=== PATIENT | female | born 1940 | race Caucasian/White ===

== ENCOUNTER 2017-10-15 10:52 | Inpatient (IN) ==
--- NOTE | 2017-10-15 11:29 | Emergency Department Note ---
General Adult HPI - General Chief complaint: Cold/Flu Symptoms Stated complaint: Pneumonia Time Seen by Provider: 10/15/17 10:54 Mode of arrival: ambulatory - History of Present Illness HPI Narrative: 76-year-old female who was seen [address] [facility] and treated with pneumonia with a IM Rocephin shot. She had gotten worse and was seen on Thursday 5 days ago at [facility] ED and right pneumonia was seen and was treated outpatient with Levaquin 750 mg daily. sHe was seen again today at [facility], today and a repeat x-ray showed increasing pneumonia. Patient states she continues having increased cough and feeling weak. She does have a history of asthma they had given her a DuoNeb at [facility]. She was referred over to the ED for possible admission. Ray reviewed by Dr. Patel radiologist was today's infiltrate to be increased from previous x-ray the right lower lobe. - Related Data Home Medications Medication Instructions Recorded Confirmed Aspirin [Adult Low Dose Aspirin EC] 81 mg PO DAILY 05/28/15 10/15/17 Beclomethasone Dipropionate [Qvar 2 inh INH BID 05/28/15 10/15/17 40] Metoprolol Tartrate [Lopressor] 25 mg PO DAILY 05/28/15 10/15/17 L.acidophilus-Bif. animalis 1 tab PO QDAY 06/11/15 10/15/17 albuterol sulfate HFA 90 INHALATION 17 Days 06/11/15 09/23/17 mcg/actuation aerosol inhaler calcium carbonate 600 mg (1,500 1 tab PO QDAY 06/11/15 10/15/17 mg)-vitamin D3 200 unit tablet fluticasone 200 mcg-vilanterol 25 1 each INHALATION QDAY each 06/11/15 10/15/17 mcg/dose powder for inhalation glucosamine 750 [id number] 2 tab PO QDAY tab 06/11/15 10/15/17 no1 644 mg-C 30 mg-anne 1 mg tablet montelukast 10 mg tablet 10 mg PO QPM 06/11/15 10/15/17 multivitamin with minerals tablet 1 tab-cap PO QDAY tab 06/11/15 10/15/17 olopatadine 0.1 % eye drops 2 drp OPHTHALMIC ONCE PRN ml 06/11/15 10/15/17 ezetimibe 10 mg tablet 10 mg PO QDAY 05/20/17 10/15/17 tramadol PO 07/22/17 09/23/17 hydrOXYzine [Atarax] 25 mg PO TIDP PRN 09/20/17 10/15/17 Ondansetron HCl [Zofran ODT] 4 mg SL Q4-6HP PRN 10/15/17 10/15/17 Previous Rx's Medication Instructions Recorded acyclovir 400 mg tablet 400 mg PO QDAY 90 Days #90 tab 03/06/15 mirtazapine 15 mg tablet 15 mg PO QHS #30 tab 03/29/15 loratadine 5 mg disintegrating 5 mg PO Q12H #60 tab 11/06/15 tablet Levofloxacin [Levaquin] 750 mg PO DAILY #6 tab 10/12/17 Allergies Allergy/AdvReac Type Severity Reaction Status Date / Time atorvastatin [From Lipitor] Allergy Other Verified 10/12/17 01:01 Penicillins Allergy Rash Verified 10/12/17 01:01 pravastatin Allergy Diarrhea Verified 10/12/17 01:01 rosuvastatin [From Crestor] Allergy Other Verified 10/12/17 01:01 Review of Systems All systems ED: reviewed and negative except as stated. Constitutional: Reports: fever, chills Eyes: Denies: eye pain ENT ED: Denies: ear pain Cardiovascular: Denies: chest pain, palpitations, dyspnea on exertion, orthopnea Respiratory: Reports: as per HPI, shortness of breath, cough Gastrointestinal: Denies: abdominal pain, nausea, vomiting Genitourinary: Denies: dysuria, urgency, frequency Musculoskeletal: Denies: back pain, joint swelling Integumentary: Denies: rash, lesions Neurological: Denies: headache, weakness Psychiatric: Denies: anxiety, depression Endocrine: Denies: fatigue Hematological/Lymphatic: Denies: easy bleeding Allergic/Immunologic: Denies: facial swelling Past Medical History - Past Medical History Medical history: Reports: other (Cervical cancer, carpal tunnel, mitral valve prolapse, herpes zoster,) Surgical history ED: Reports: other (Bladder suspension, colonoscopy, tubal ligation, appendectomy, cataract, foot surgery, hysterectomy, tonsillectomy,) - Social History smoking status: Former smoker Alcohol use: Reports: None Drug use: Reports: none Physical Exam Limitations: no limitations General appearance: alert Head: atraumatic Eye: Present: normal appearance, PERRL ENT: normal exam, normal oropharynx Neck: Present: normal inspection, full ROM Chest: Present: normal inspection, symmetric chest wall rise. Absent: tenderness Respiratory: Present: normal lung sounds bilaterally, wheezes. Absent: respiratory distress, stridor, accessory muscle use, prolonged expiratory phase Cardiovascular: Present: regular rate, normal rhythm. Absent: bradycardia, tachycardia Abdominal: Present: soft. Absent: distention, tenderness, guarding, rebound, rigidity Course Vital Signs Temperature 98.1 F 10/15/17 10:53 Respiratory Rate 16 10/15/17 10:53 Blood Pressure 148/78 10/15/17 10:53 Pulse Oximetry (%) 93 10/15/17 10:53 Temperature 98.1 F 10/15/17 10:53 Respiratory Rate 16 10/15/17 10:53 Blood Pressure 148/78 10/15/17 10:53 Pulse Oximetry (%) 93 10/15/17 10:53 Medical Decision Making - [facility] Narrative Medical decision making narrative: She had a Rocephin shot on Thursday 1 week ago. Treated outpatient with Levaquin and x-rays today at [facility] reveal increased lower lobe pneumonia as read by radiologist.. Lactic acid is 1.8 blood cultures have been drawn white counts 9161 segs and no bands UA does show 6 WBCs and culture is pending. Patient given IV fluids vital signs are stable noted on IV Rocephin and IV Zithromax - Lab Data Result diagrams: 10/15/17 11:31 10/15/17 11:31 Lab Results 10/15/17 10/15/17 10/15/17 Range/Units 11:31 11:31 11:31 WBC 9.1 (4.5-11.0) K/mcL RBC 4.79 (4.00-5.20) M/mcL Hgb 13.6 (12.0-15.0) g/dL Hct 40.0 (36.0-48.0) % MCV 83.6 (80.0-100.0) fL MCH 28.3 (26.0-34.0) pg MCHC 33.9 (31.0-36.0) g/dL RDW 13.6 (11.5-14.5) % Plt Count 284 (140-440) K/mcL MPV 7.5 (7.4-10.4) fL Total Counted 100 Seg Neutrophils % 61 (38-78) % Band Neutrophils % Not Reportable Lymphocytes % 22 (15-49) % Monocytes % (Manual) 11 (1-12) % Eosinophils % (Manual) 5 (0-7) % Myelocytes % 1 H (0-0) % Platelet Estimate Normal (NORMAL) RBC Morphology Normal (NORMAL) VBG Lactic Acid 1.8 (0.5-2.2) mmol/L Sodium 138 (133-145) mmol/L Potassium 3.9 (3.3-5.1) mmol/L Chloride 98 (96-108) mmol/L Carbon Dioxide 25 (22-30) mmol/L Anion Gap 15.0 (8-16) BUN 17 (8-23) mg/dl Creatinine 1.1 (0.6-1.1) mg/dl GFR Calculation 48 Glucose 98 (70-105) mg/dL Calcium 9.5 (8.6-10.4) mg/dl Total Bilirubin 0.4 (0.0-1.0) mg/dL AST 24 (0-37) U/l ALT 23 (0-40) U/l Alkaline Phosphatase 80 (39-117) U/L Total Protein 7.6 (5.9-8.4) gm/dL Albumin 4.3 (3.2-5.2) gm/dL Globulin 3.3 (2.2-3.7) gm/dL Albumin/Globulin Ratio 1.3 (1.0-2.3) Urine Color Urine Appearance Urine pH (5.0-9.0) Ur Specific [place] (1.000-1.035) Urine Protein (NEG) mg/dL Urine Glucose (UA) (NEG) mg/dL Urine Ketones (NEG) mg/dL Urine Occult Blood (<0.03) mg/dL Urine Nitrate (NEG) Urine Bilirubin (NEG) mg/dL Urine Urobilinogen (NEG) mg/dL Ur Leukocyte Esterase (NEG) /uL Urine RBC (0-1) /hpf Urine WBC (0-4) /hpf Ur Squamous Epith Cells (0-4) /hpf Calcium Oxalate Crystal (0) /hpf Urine Bacteria (0) /hpf Urine Mucus (0) /hpf Ur Culture Indicated? 03/15/18 Range/Units 11:46 WBC (4.5-11.0) K/mcL RBC (4.00-5.20) M/mcL Hgb (12.0-15.0) g/dL Hct (36.0-48.0) % MCV (80.0-100.0) fL MCH (26.0-34.0) pg MCHC (31.0-36.0) g/dL RDW (11.5-14.5) % Plt Count (140-440) K/mcL MPV (7.4-10.4) fL Total Counted Seg Neutrophils % (38-78) % Band Neutrophils % Lymphocytes % (15-49) % Monocytes % (Manual) (1-12) % Eosinophils % (Manual) (0-7) % Myelocytes % (0-0) % Platelet Estimate (NORMAL) RBC Morphology (NORMAL) VBG Lactic Acid (0.5-2.2) mmol/L Sodium (133-145) mmol/L Potassium (3.3-5.1) mmol/L Chloride (96-108) mmol/L Carbon Dioxide (22-30) mmol/L Anion Gap (8-16) BUN (8-23) mg/dl Creatinine (0.6-1.1) mg/dl GFR Calculation Glucose (70-105) mg/dL Calcium (8.6-10.4) mg/dl Total Bilirubin (0.0-1.0) mg/dL AST (0-37) U/l ALT (0-40) U/l Alkaline Phosphatase (39-117) U/L Total Protein (5.9-8.4) gm/dL Albumin (3.2-5.2) gm/dL Globulin (2.2-3.7) gm/dL Albumin/Globulin Ratio (1.0-2.3) Urine Color Yellow Urine Appearance Hazy Urine pH 5.0 (5.0-9.0) Ur Specific [place] 1.019 (1.000-1.035) Urine Protein Neg (NEG) mg/dL Urine Glucose (UA) Negative (NEG) mg/dL Urine Ketones Neg (NEG) mg/dL Urine Occult Blood Neg (<0.03) mg/dL Urine Nitrate Neg (NEG) Urine Bilirubin Neg (NEG) mg/dL Urine Urobilinogen Neg (NEG) mg/dL Ur Leukocyte Esterase Neg (NEG) /uL Urine RBC 1 (0-1) /hpf Urine WBC 6 H (0-4) /hpf Ur Squamous Epith Cells < 1 (0-4) /hpf Calcium Oxalate Crystal Few A (0) /hpf Urine Bacteria 0 (0) /hpf Urine Mucus Many A (0) /hpf Ur Culture Indicated? Yes Disposition Pt seen by [employer]/PA only: No Clinical Impression: Right lower lobe pneumonia Qualifiers: Pneumonia type: due to unspecified organism Qualified Code(s): J18.1 - Lobar pneumonia, unspecified organism Disposition: Xfer As Inpt ([facility]) Condition: Fair Referrals: Aditi Atwood ARNP [Primary Care Provider] -
[2017-10-15] MEDS ORDERED: cefTRIAXone 1 GM VIAL IV ONE (12:02)
[2017-10-15] MEDS ORDERED: AZITHROMYCIN 500 MG in DEXTROSE 5% IN WATER 250 ML IV ONE (12:02)
[2017-10-15 12:20] LABS: Mean Cell Volume 83.6 fL (80.0-100.0); Mean Corpuscular HGB Conc 33.9 g/dL (31.0-36.0); Mean Corpuscular Hemoglobin 28.3 pg (26.0-34.0); Platelet Count 284 K/mcL (140-440); RBC 4.79 M/mcL (4.00-5.20); Red Cell Distribution Width 13.6 % (11.5-14.5)
[2017-10-15 12:21] LABS: Appearance,Urine HAZY; Bacteria,Urine 0 /hpf (0); Bilirubin,Urine NEG (NEG); Calcium Oxalate Crystals,Urine FEW /hpf (0); Color,Urine YELLOW; Glucose,Urine (UA) NEGATIVE (NEG); Leukocyte Esterase,Urine NEG /uL (NEG); Mucus,Urine MANY /hpf (0); Protein,Urine NEG (NEG); Specific Gravity,Urine 1.019 (1.000-1.035); Urine Blood NEG mg/dL (<0.03); Urine RBC 1 /hpf (0-1); Urine Squamous Epithelial Cell < 1 /hpf (0-4); Urine WBC 6 /hpf (0-4); Urobilinogen,Urine NEG (NEG)
[2017-10-15 12:38] LABS: ALT/SGPT 23 U/l (0-40); Albumin 4.3 gm/dL (3.2-5.2); Albumin/Globulin Ratio 1.3 (1.0-2.3); Alkaline Phosphatase 80 U/L (39-117); Blood Urea Nitrogen 17 mg/dl (8-23)
[2017-10-15 12:42] LABS: Eosinophils % (Manual) 5 % (0-7); Lymphocytes % 22 % (15-49); Monocytes % (Manual) 11 % (1-12); Myelocytes % 1 % (0-0); Platelet Estimate NORMAL (NORMAL); RBC Morphology NORMAL (NORMAL); Segmented Neutrophils % 61 % (38-78)
--- NOTE | 2017-10-15 14:33 | XRay Report ---
INDICATION: Pneumonia TECHNIQUE: PA and lateral upright chest x-ray COMPARISON: Chest x-rays dated 10/15/2017, 10/12/2017, 10/09/2017 FINDINGS:Right basilar infiltrate. This appears to involve both the right middle lobe and right lower lobe on lateral view. Infiltrate is mild but is slightly worse than on 10/12/2017. Appearance is consistent with pneumonia. Left lung remains negative. Heart size and vascularity are normal. IMPRESSION: 1. Right basilar infiltrates consistent with pneumonia 2. Slight interval worsening since 10/12/2017 Interpreted and Authenticated by: Zeke Patel 10/15/17
[2017-10-15] MEDS ORDERED: methylPREDNISolone SOD SUCC 125 MG/2 ML VIAL IV SCH (15:15)
[2017-10-15] MEDS ORDERED: ONDANSETRON 4 MG/2 ML VIAL IV PRN (17:20)
[2017-10-15] MEDS ORDERED: ACETAMINOPHEN 325 MG TABLET PO PRN (17:20)
[2017-10-15] MEDS ORDERED: HYDROmorphone 2 MG/ML VIAL IV PRN (17:20)
[2017-10-15] MEDS ORDERED: NALOXONE HCL 0.4 MG/ML VIAL IV PRN (17:20)
[2017-10-15] MEDS ORDERED: 0.9 % SODIUM CHLORIDE 1,000 ML IV SCH (17:20)
[2017-10-15] MEDS: methylPREDNISolone SOD SUCC 125 MG/2 ML VIAL IV SCH (17:32)
--- NOTE | 2017-10-15 18:02 | Internal Med History&Physical ---
Medical - H&P: HPI Patient information: Note initiated : 10/15/17 at 5:59 pm Service Date, if different from initiated Date: [] Patient: Cornelia Shi a 76 y/o F admitted on 10/15/17 for Pneumonia. Chief Complaint: [] History of present illness: Ms. Shi is a 76 year old Female with h/o asthma who presents to the emergency today with complains of cough and shortness of breath that has been going on for the last 1 week. According to the patient she has been not feeling well having a head cold and sinus drainage for nearly a week. She was seen by her primary care doctor on Thursday. The doctor prescribed some medications I will be she was not able to take them as she would vomit as soon as she took it. She was seen in the emergency room on Thursday, the patient was prescribed levofloxacin at that point in time. The patient was not able to tolerate levofloxacin also. She saw her primary care later and he prescribed some Zofran for her. The patient was then able to take some medications. The patient's condition did not improve and she again saw her PCP today. In the PCPs office to get a chest x-ray which revealed worsening pneumonia on the right side patient was therefore sent to the emergency room for admission as she had failed outpatient treatment. The patient's cough is associated with whitish greenish sputum. There is no hemoptysis, shortness of breath is worse with exertion. She has a sinus headache, no changes in vision she admits to having some difficulty in swallowing or throat irritation. She has some chest pain with coughing. Shortness of breath and cough. Nausea and vomiting no blood in the vomitus. No abdominal pain no constipation no diarrhea no melena. No urinary symptoms. No joint pain no skin rashes, she has no suicidal ideations. In the emergency room patient is afebrile, vital signs are stable, she was saturating more than 90% on 2 L of oxygen. She was able to speak full sentences. Blood work reviewed she does not have leukocytosis, her chemistry panel was normal. X-ray chest shows worsening pneumonia on the right side right middle lobe and right basilar lobe. She also had bilateral expiratory wheezing on exam. She is therefore being admitted to the hospital for further management All systems: reviewed and no additional remarkable complaints except as stated Medical - H&P: PM Medical history: Medical History (Last Reviewed 05/20/17 @ 13:08 by Bonny Huddleston CMA) Paresthesia of right arm (Chronic) H/O bladder problems (Chronic) History of kidney problems (Chronic) Dizziness (Chronic) Chronic diarrhea (Chronic) Cervical cancer (Chronic) Carpal tunnel syndrome of right wrist (Chronic) Cardiac valve prolapse (Chronic) Joint pain (Chronic) Back pain (Chronic) Arthritis (Chronic) Hymenoptera reaction (Chronic) Perennial allergic rhinitis (Chronic) Seasonal allergic rhinitis (Chronic) Urinary tract infection (Chronic) Osteoarthrosis (Chronic) Mitral valve disorder (Chronic) Herpes zoster (Chronic) Diarrhea (Chronic) Asthma (Chronic) Surgical history: Past Surgical History (Last Reviewed 05/20/17 @ 13:08 by Bonny Huddleston CMA) H/O tubal ligation (Chronic) History of tonsillectomy (Chronic) Pneumothorax (Chronic) History of hysterectomy (Chronic) S/P foot surgery, right (Chronic) S/P foot surgery, left (Chronic) H/O colonoscopy (Chronic 08/11/13) H/O bladder repair surgery (Chronic) History of appendectomy (Chronic) History of foot surgery (Chronic) History of cataract surgery (Acute) Pertinent family history: Family History (Last Reviewed 05/20/17 @ 13:08 by Bonny Huddleston CMA) Mother Asthma Sister Diabetes mellitus Osteoarthritis Father Malignant neoplasm Medical - H&P: Meds Home Medications Medication Instructions Recorded Confirmed Type acyclovir 400 mg tablet 400 mg PO QDAY 90 Days #90 tab 03/06/15 10/15/17 Rx mirtazapine 15 mg tablet 15 mg PO QHS #30 tab 03/29/15 10/15/17 Rx Aspirin [Adult Low Dose Aspirin EC] 81 mg PO DAILY 05/28/15 10/15/17 History Beclomethasone Dipropionate [Qvar 2 inh INH BID 05/28/15 10/15/17 History 40] Metoprolol Tartrate [Lopressor] 25 mg PO DAILY 05/28/15 10/15/17 History L.acidophilus-Bif. animalis 1 tab PO QDAY 06/11/15 10/15/17 History albuterol sulfate HFA 90 INHALATION 17 Days 06/11/15 09/23/17 History mcg/actuation aerosol inhaler calcium carbonate 600 mg (1,500 1 tab PO QDAY 06/11/15 10/15/17 History mg)-vitamin D3 200 unit tablet fluticasone 200 mcg-vilanterol 25 1 each INHALATION QDAY each 06/11/15 History mcg/dose powder for inhalation glucosamine 750 [id number] 2 tab PO QDAY tab 06/11/15 10/15/17 History no1 644 mg-C 30 mg-anne 1 mg tablet montelukast 10 mg tablet 10 mg PO QPM 06/11/15 10/15/17 History multivitamin with minerals tablet 1 tab-cap PO QDAY tab 06/11/15 10/15/17 History olopatadine 0.1 % eye drops 2 drp OPHTHALMIC ONCE PRN ml 06/11/15 10/15/17 History loratadine 5 mg disintegrating 5 mg PO Q12H #60 tab 11/06/15 10/15/17 Rx tablet ezetimibe 10 mg tablet 10 mg PO QDAY 05/20/17 10/15/17 History tramadol PO 07/22/17 09/23/17 History hydrOXYzine [Atarax] 25 mg PO TIDP PRN 09/20/17 10/15/17 History Levofloxacin [Levaquin] 750 mg PO DAILY #6 tab 10/12/17 10/15/17 Rx Ondansetron HCl [Zofran ODT] 4 mg SL Q4-6HP PRN 10/15/17 10/15/17 History Allergies Allergy/AdvReac Type Severity Reaction Status Date / Time Penicillins Allergy Mild Rash Verified 10/15/17 15:11 atorvastatin [From Lipitor] AdvReac Intermediate Body Aches Verified 10/15/17 15 :11 rosuvastatin [From Crestor] AdvReac Intermediate Body Aches Verified 10/15/17 15 :11 pravastatin AdvReac Mild Diarrhea Verified 10/15/17 15:11 Medical - H&P: Exam - Constitutional Vitals: Temp Pulse Resp BP Pulse Ox 98.1 F 77 16 137/78 95 10/15/17 17:07 10/15/17 17:07 10/15/17 17:07 10/15/17 17:07 10/15/17 17:07 Exam: GENERAL: The patient is a well-developed, well-nourished in no apparent distress. Is alert and oriented x3. VITAL SIGNS: Reviewed and as noted elsewhere. HEENT: Head is normocephalic and atraumatic. Extraocular muscles are intact. Pupils are equal, round, and reactive to light. Nares appeared normal. Mouth appears any without lesions. Mucous membranes are moist. NECK: Normal to inspection, Supple, No lymphadenopathy or thyromegaly. LUNGS: Air entry equal on both sides, right basilar crackles, bilateral expiratory wheeze, speaking full sentences no accessory muscle use. HEART: Regular rate and rhythm normal, S1 and S2 heard, no Gallop, S3 or Rub Noted, No Gross murmur heard. ABDOMEN: Soft, nontender, and nondistended. Positive bowel sounds. No hepatosplenomegaly was noted. EXTREMITIES: No cyanosis, clubbing, rash, lesions or edema. NEUROLOGIC: Cranial nerves II through XII are grossly intact. Motor and Sensory System Grossly Intact PSYCHIATRIC: Normal affect, Normal Mood. Appropriate Behavior. SKIN: No ulceration or wounds noted, No jaundice, No rash noted. Medical - H&P: Reslt - Labs CBC & Chem 7: 10/15/17 11:31 10/15/17 11:31 Labs: Short CBC 10/15/17 Range/Units 11:31 WBC 9.1 (4.5-11.0) K/mcL Hgb 13.6 (12.0-15.0) g/dL Hct 40.0 (36.0-48.0) % Plt Count 284 (140-440) K/mcL BMP 10/15/17 11:31 Sodium 138 Potassium 3.9 Chloride 98 Carbon Dioxide 25 BUN 17 Creatinine 1.1 Glucose 98 Calcium 9.5 Liver Function 10/15/17 Range/Units 11:31 Total Bilirubin 0.4 (0.0-1.0) mg/dL AST 24 (0-37) U/l ALT 23 (0-40) U/l Alkaline Phosphatase 80 (39-117) U/L Albumin 4.3 (3.2-5.2) gm/dL Urine 10/15/17 Range/Units 11:46 Urine Color Yellow Urine Appearance Hazy Urine pH 5.0 (5.0-9.0) Ur Specific [place] 1.019 (1.000-1.035) Urine Protein Neg (NEG) mg/dL Urine Glucose (UA) Negative (NEG) mg/dL Medical - H&P: A/P - Narrative A/P Narrative: A/P Community Acquired Pneumnia- Failed outpatient therapy Nausea and Vomiting Acute asthma exacerbation Arthritis Depression Plan Admit to med surgy IV rocephin and zithromax follow cultures. IV zofran for nausea and vomiting IV fluids for now no e/o sepsis iv steroids for asthma exacerbation along with duonebs DVT hep sq Diet regular full code. Social History - Social History marital status: - Tobacco smoking status: Former smoker - Alcohol alcohol intake frequency: does not drink
[2017-10-15] MEDS: IPRATROPIUM/ALBUTEROL 3 ML AMPUL.NEB NEB SCH (19:40)
[2017-10-15] MEDS ORDERED: MIRTAZAPINE 15 MG TABLET PO SCH (21:00)
[2017-10-15] MEDS ORDERED: METOPROLOL TARTRATE 25 MG TABLET PO SCH (21:00)
[2017-10-15] MEDS ORDERED: METOPROLOL TARTRATE 25 MG TABLET ONE (22:36)
[2017-10-15] MEDS: DOCUSATE SODIUM 100 MG CAPSULE PO SCH (22:44)
[2017-10-15] MEDS: HEPARIN 5,000 UNIT/ML VIAL SQ SCH (22:45)
[2017-10-15] MEDS: 0.9 % SODIUM CHLORIDE 10 ML SYRINGE IV SCH (22:45)
[2017-10-16] MEDS: IPRATROPIUM/ALBUTEROL 3 ML AMPUL.NEB NEB SCH ×4 (02:35→18:38)
[2017-10-16] MEDS: methylPREDNISolone SOD SUCC 125 MG/2 ML VIAL IV SCH ×4 (02:35→22:07)
[2017-10-16] MEDS: 0.9 % SODIUM CHLORIDE 10 ML SYRINGE IV SCH ×3 (06:13→22:07)
[2017-10-16 06:26] LABS: Basophils # (Auto) 0 K/mcL (0.0-0.3); Basophils % (Auto) 0.1 % (0.0-2.0); Eosinophils # (Auto) 0.1 K/mcL (0.0-0.7); Granulocytes % (Auto) 83.2 % (38.0-78.0); Lymphocytes # (Auto) 0.8 K/mcL (1.5-4.8); Lymphocytes % (Auto) 11.8 % (15.5-49.0); Mean Cell Volume 83.7 fL (80.0-100.0); Mean Corpuscular HGB Conc 33.9 g/dL (31.0-36.0); Mean Corpuscular Hemoglobin 28.4 pg (26.0-34.0); Monocytes # (Auto) 0.2 K/mcL (0.1-0.9); Monocytes % (Auto) 2.9 % (1.0-12.0); Platelet Count 251 K/mcL (140-440); RBC 4.27 M/mcL (4.00-5.20); Red Cell Distribution Width 13.9 % (11.5-14.5)
[2017-10-16 07:08] LABS: ALT/SGPT 18 U/l (0-40); Albumin 3.7 gm/dL (3.2-5.2); Albumin/Globulin Ratio 1.2 (1.0-2.3); Alkaline Phosphatase 71 U/L (39-117); Bilirubin,Direct < 0.2 mg/dL (0.0-0.3); Blood Urea Nitrogen 18 mg/dl (8-23); Gamma Glutamyl Transpeptidase 29 U/L (5-36); Uric Acid 4.4 mg/dL (2.5-8.0)
[2017-10-16] MEDS ORDERED: OLOPATADINE 0.1% OPHTH DROPS 5ML BOTTLE OU PRN (07:35)
[2017-10-16] MEDS ORDERED: hydrOXYzine 25 MG TABLET PO PRN (07:35)
[2017-10-16] MEDS: cefTRIAXone 1 GM VIAL IV SCH (08:23)
[2017-10-16] MEDS: CALCIUM CARBONATE 500 MG TAB.CHEW CHEWED SCH ×2 (08:23→20:46)
[2017-10-16] MEDS: AZITHROMYCIN 250 MG in DEXTROSE 5% IN WATER 250 ML IV SCH (08:23)
[2017-10-16] MEDS: GLUCOSAMINE/CHONDROITIN SULF A 1 CAP CAPSULE PO SCH (08:24)
[2017-10-16] MEDS: HEPARIN 5,000 UNIT/ML VIAL SQ SCH ×2 (08:24→20:44)
[2017-10-16] MEDS: ACYCLOVIR 400 MG TABLET PO SCH (08:24)
[2017-10-16] MEDS: LACTOBACILLUS 1 CAPSULE PO SCH (08:24)
[2017-10-16] MEDS: EZETIMIBE 10 MG TABLET PO SCH (08:24)
[2017-10-16] MEDS: MULTIVIT,THER IRON,CA,FA & MIN 1 TABLET PO SCH (08:24)
[2017-10-16] MEDS: ASPIRIN 81 MG TAB.CHEW PO SCH ×3 (08:24→20:44)
[2017-10-16] MEDS: DOCUSATE SODIUM 100 MG CAPSULE PO SCH ×2 (08:24→20:45)
[2017-10-16] MEDS ORDERED: BECLOMETHASONE DIPROPIONATE 40MCG INHALER INH SCH (09:00)
[2017-10-16] MEDS: Fluticasone/Vilanterol [Breo Ellipta 200-25 Mcg Inhaler] INH SCH (09:11)
[2017-10-16] MEDS: ALBUTEROL SULFATE 1 PUFF INHALER INH SCH (09:12)
[2017-10-16] MEDS: LORATADINE 10 MG TABLET PO SCH ×2 (10:53→20:45)
--- NOTE | 2017-10-16 15:49 | Internal Med Progress Note ---
Medical - PN: Subj Patient information: Note initiated : 10/16/17 at 3:48 pm Service Date, if different from initiated Date: [] Patient: Cornelia Shi a 76 y/o F admitted on 10/15/17 for Pneumonia. Chief Complaint: [] Interval history: Ms. Shi is a 76 year old Female with h/o asthma who presents to the emergency today with complains of cough and shortness of breath that has been going on for the last 1 week. According to the patient she has been not feeling well having a head cold and sinus drainage for nearly a week. She was seen by her primary care doctor on Thursday. The doctor prescribed some medications I will be she was not able to take them as she would vomit as soon as she took it. She was seen in the emergency room on Thursday, the patient was prescribed levofloxacin at that point in time. The patient was not able to tolerate levofloxacin also. She saw her primary care later and he prescribed some Zofran for her. The patient was then able to take some medications. The patient's condition did not improve and she again saw her PCP today. In the PCPs office to get a chest x-ray which revealed worsening pneumonia on the right side patient was therefore sent to the emergency room for admission as she had failed outpatient treatment. The patient's cough is associated with whitish greenish sputum. There is no hemoptysis, shortness of breath is worse with exertion. She has a sinus headache, no changes in vision she admits to having some difficulty in swallowing or throat irritation. She has some chest pain with coughing. Shortness of breath and cough. Nausea and vomiting no blood in the vomitus. No abdominal pain no constipation no diarrhea no melena. No urinary symptoms. No joint pain no skin rashes, she has no suicidal ideations. In the emergency room patient is afebrile, vital signs are stable, she was saturating more than 90% on 2 L of oxygen. She was able to speak full sentences. Blood work reviewed she does not have leukocytosis, her chemistry panel was normal. X-ray chest shows worsening pneumonia on the right side right middle lobe and right basilar lobe. She also had bilateral expiratory wheezing on exam. She is therefore being admitted to the hospital for further management october 16 Patient seen and examined no acute overnight events, she was doing better today still had some nausea this morning after her workout with physical therapy otherwise she feels improved compared to yesterday. She has no acute complaints Pertinent ROS: Denies headache, dizziness Denies chest pain, palpitations Cough and shortness of breath present Denies abdominal pain, had some nausea this morning - Constitutional Vitals: Vital Signs Temp Pulse Resp BP Pulse Ox 98.0 F 82 16 124/72 92 10/16/17 15:16 10/16/17 13:09 10/16/17 15:16 10/16/17 15:16 10/16/17 15:16 Period Temp Pulse Resp BP Sys/Rodriguez Pulse Ox Last 24 Hr 97.0 F-98.1 F 76-94 14-20 124-151/72-87 91-97 Intake and Output 10/16/17 10/16/17 10/16/17 05:59 13:59 21:59 Intake Total 100 / 100 1370 / 1370 800 / 800 Output Total 251 / 251 203 / 203 Balance -151 / -151 1167 / 1167 800 / 800 Weight 135 lb 8 oz Patient Weight 10/17/17 05:59 Weight 135 lb 8 oz Intake & Output: Intake & Output 10/16/17 10/16/17 10/16/17 05:59 13:59 21:59 Intake Total 100 / 100 1370 / 1370 800 / 800 Output Total 251 / 251 203 / 203 Balance -151 / -151 1167 / 1167 800 / 800 Weight 135 lb 8 oz Intake: IV 1250 / 1250 Zithromax 250 mg In Dextrose 5% 250 / 250 in Water 250 ml @ 250 mls/hr IV DAILY [facility] Rx#:[id number] Oral 100 / 100 120 / 120 800 / 800 Output: Void Amount 250 / 250 200 / 200 # of times incontinent of urine 3 / 3 Other: Meal Lunch Percent of Meal Consumed 50% # Voids 2 1 # Bowel Movements 1 Exam: Constitutional; Afebrile, cooperative, alert, not in distress. Eyes- No icterus, , No periorbital swelling Ears- Ext ear normal, hearing normal to conversation. Neck- Midline trachea, supple Respiratory system: Air Entry equal on both sides, right basilar crackles, bilateral expiratory wheezing at entry is much better than yesterday CVS- Rate rhythm regular, S1,S2 heard, no gallop, no rub. Abdomen- Soft nontender abdomen, no organomegaly, no tenderness, no guarding or rigidity, ZINC PLATER- AOOx3, moving all extremities, no gross focal deficit noted. Medical - PN: Obj Da - Labs CBC & Chem 7: 10/16/17 04:44 10/16/17 04:44 Labs: Abnormal Lab Results 10/16/17 10/16/17 10/15/17 04:44 04:44 11:46 Hct 35.8 L Gran % 83.2 H Lymph % (Auto) 11.8 L Lymph # (Auto) 0.8 L Myelocytes % Glucose 163 H Urine WBC 6 H Calcium Oxalate Crystal Few A Urine Mucus Many A 10/15/17 11:31 Hct Gran % Lymph % (Auto) Lymph # (Auto) Myelocytes % 1 H Glucose Urine WBC Calcium Oxalate Crystal Urine Mucus Meds: Medications Acetaminophen (Tylenol) 650 mg PO Q6HP PRN PRN Reason: PAIN/FEVER > 101 Acyclovir (Zovirax) 400 mg PO QDAY [facility] Last Admin: 10/16/17 08:24 Dose: 400 mg Albuterol Sulfate (Ventolin) 1 puff INH QDAY [facility] Last Admin: 10/16/17 09:12 Dose: Not Given Albuterol/Ipratropium (Duoneb) 3 ml NEB Q6HRT [facility] Last Admin: 10/16/17 13:09 Dose: 3 ml Aspirin (Aspirin) 81 mg PO HS [facility] Beclomethasone Dipropionate (Qvar 40) 2 puff INH BID [facility] Last Admin: 10/16/17 09:12 Dose: Not Given Calcium Carbonate/Glycine (Tums) 1,500 mg CHEWED BID [facility] Last Admin: 10/16/17 08:23 Dose: 1,500 mg Ceftriaxone Sodium (Rocephin) 1 gm IV DAILY [facility] Last Admin: 10/16/17 08:23 Dose: 1 gm Docusate Sodium (Colace) 100 mg PO BID [facility] Last Admin: 10/16/17 08:24 Dose: 100 mg Ezetimibe (Zetia) 10 mg PO QDAY [facility] Last Admin: 10/16/17 08:24 Dose: 10 mg Glucosamine/Chondroitin (Glucosamine-Chondroitin Cap) 2 cap PO DAILY [facility] Last Admin: 10/16/17 08:24 Dose: 2 cap Heparin Sodium (Porcine) (Heparin) 5,000 unit SQ Q12 [facility] Last Admin: 10/16/17 08:24 Dose: 5,000 unit Hydromorphone HCl (Dilaudid) 0.5 mg IV Q2HP PRN PRN Reason: PAIN LEVEL > 6 Hydroxyzine HCl (Atarax) 25 mg PO TIDP PRN PRN Reason: Anxiety Azithromycin 250 mg/ Dextrose 250 mls @ 250 mls/hr IV DAILY [facility] Stop: 10/19/17 09:59 Last Infusion: 10/16/17 09:23 Dose: Infused Iron Carb/Multivit/Software Support Engineer/Folic Acid (Multivitamin W/Minerals) 1 tab PO DAILY [facility] Last Admin: 10/16/17 08:24 Dose: 1 tab Lactobacillus Rhamnosus (Culturelle) 1 cap PO DAILY [facility] Last Admin: 10/16/17 08:24 Dose: 1 cap Loratadine (Claritin) 5 mg PO BID [facility] Last Admin: 10/16/17 10:53 Dose: 5 mg Methylprednisolone Sodium Succinate (Solu-Medrol) 62.5 mg IV Q8 [facility] Last Admin: 10/16/17 14:04 Dose: 62.5 mg Metoprolol Tartrate (Lopressor) 25 mg PO HS [facility] Mirtazapine (Remeron) 15 mg PO QHS [facility] Montelukast Sodium (Singular) 10 mg PO QPM [facility] Naloxone HCl (Narcan) 0.1 mg IV Q2MIN PRN PRN Reason: Opiate Reversal Olopatadine HCl (Patanol 0.1% Ophth Drops) 2 gtt OU DAILYP PRN PRN Reason: Dry Eye(s) Ondansetron HCl (Zofran) 4 mg IV Q6HP PRN PRN Reason: Nausea And Vomiting Fluticasone/Vilanterol [Breo Ellipta 200-25 Mcg Inhaler] 1 dose INH QDAY [facility] Last Admin: 10/16/17 09:11 Dose: 1 dose Sodium Chloride (Saline Flush) 10 ml IV Q8 [facility] Last Admin: 10/16/17 14:04 Dose: 10 ml Medical - PN: A/P - Time Spent With Patient Total time spent is greater than 50% in coordination of care (as documented) at patient's floor/unit and/or counseling patient: - Narrative A/P Narrative: A/P Community Acquired Pneumonia- Failed outpatient therapy Nausea and Vomiting Acute asthma exacerbation Arthritis Depression Plan Continue IV rocephin and zithromax follow cultures. IV zofran for nausea and vomiting IV fluids for now no e/o sepsis Continue iv steroids for asthma exacerbation along with duonebs DVT hep sq Diet regular full code. Medical - PN: Qual - VTE Deep Vein Thrombosis/Pulmonary Embolism Present on Admission: No
[2017-10-16] MEDS ORDERED: METOPROLOL SUCCINATE 50 MG TAB.XL.24H PO ONE (20:40)
[2017-10-16] MEDS: MONTELUKAST 10 MG TABLET PO SCH (20:45)
[2017-10-16] MEDS: MIRTAZAPINE 15 MG TABLET PO SCH (20:45)
[2017-10-16] MEDS: METOPROLOL SUCCINATE 25 MG TAB.XL.24H PO SCH (20:46)
[2017-10-16] MEDS ORDERED: METOPROLOL TARTRATE 25 MG TABLET PO SCH (21:00)
[2017-10-17] MEDS: IPRATROPIUM/ALBUTEROL 3 ML AMPUL.NEB NEB SCH ×4 (01:11→19:00)
[2017-10-17] MEDS: 0.9 % SODIUM CHLORIDE 10 ML SYRINGE IV SCH ×3 (05:37→21:46)
[2017-10-17] MEDS: methylPREDNISolone SOD SUCC 125 MG/2 ML VIAL IV SCH (05:37)
[2017-10-17 06:07] LABS: Basophils # (Auto) 0 K/mcL (0.0-0.3); Basophils % (Auto) 0.1 % (0.0-2.0); Eosinophils # (Auto) 0.4 K/mcL (0.0-0.7); Eosinophils % (Auto) 3.1 % (0.0-7.0); Granulocytes % (Auto) 83.6 % (38.0-78.0); Lymphocytes # (Auto) 0.9 K/mcL (1.5-4.8); Lymphocytes % (Auto) 7.8 % (15.5-49.0); Mean Cell Volume 83.8 fL (80.0-100.0); Mean Corpuscular HGB Conc 34.3 g/dL (31.0-36.0); Mean Corpuscular Hemoglobin 28.8 pg (26.0-34.0); Monocytes # (Auto) 0.6 K/mcL (0.1-0.9); Monocytes % (Auto) 5.4 % (1.0-12.0); Platelet Count 320 K/mcL (140-440); RBC 4.34 M/mcL (4.00-5.20); Red Cell Distribution Width 14.8 % (11.5-14.5)
[2017-10-17 06:40] LABS: ALT/SGPT 19 U/l (0-40); Albumin 4.1 gm/dL (3.2-5.2); Albumin/Globulin Ratio 1.5 (1.0-2.3); Alkaline Phosphatase 73 U/L (39-117); Bilirubin,Direct < 0.2 mg/dL (0.0-0.3); Blood Urea Nitrogen 22 mg/dl (8-23); Gamma Glutamyl Transpeptidase 30 U/L (5-36); Uric Acid 4.4 mg/dL (2.5-8.0)
[2017-10-17] MEDS: LACTOBACILLUS 1 CAPSULE PO SCH (09:44)
[2017-10-17] MEDS: EZETIMIBE 10 MG TABLET PO SCH (09:44)
[2017-10-17] MEDS: MULTIVIT,THER IRON,CA,FA & MIN 1 TABLET PO SCH (09:45)
[2017-10-17] MEDS: LORATADINE 10 MG TABLET PO SCH ×2 (09:45→21:45)
[2017-10-17] MEDS: GLUCOSAMINE/CHONDROITIN SULF A 1 CAP CAPSULE PO SCH (09:45)
[2017-10-17] MEDS: ACYCLOVIR 400 MG TABLET PO SCH (09:45)
[2017-10-17] MEDS: cefTRIAXone 1 GM VIAL IV SCH (09:46)
[2017-10-17] MEDS: CALCIUM CARBONATE 500 MG TAB.CHEW CHEWED SCH ×2 (09:46→21:47)
[2017-10-17] MEDS: HEPARIN 5,000 UNIT/ML VIAL SQ SCH ×2 (09:47→21:46)
[2017-10-17] MEDS: DOCUSATE SODIUM 100 MG CAPSULE PO SCH ×2 (09:47→21:46)
--- NOTE | 2017-10-17 09:47 | XRay Report ---
INDICATION: Pneumonia TECHNIQUE: PA and lateral upright chest x-ray COMPARISON: Previous chest x-rays dated 10/15/2017, 10/12/2017, 10/09/2017 FINDINGS:Right lower lobe infiltrate is unchanged since 10/15/2017. Appearance remains consistent with pneumonia. Left lung is negative. Heart size and vascularity are within normal limits. No evidence for congestive heart failure. IMPRESSION: 1. Right lower lobe infiltrate consistent with pneumonia 2. No interval change since 10/15/2017 Interpreted and Authenticated by: Zeke Patel 10/17/17
[2017-10-17] MEDS: Fluticasone/Vilanterol [Breo Ellipta 200-25 Mcg Inhaler] INH SCH (10:00)
[2017-10-17] MEDS: AZITHROMYCIN 250 MG in DEXTROSE 5% IN WATER 250 ML IV SCH (10:11)
[2017-10-17] MEDS: ALBUTEROL SULFATE 1 PUFF INHALER INH SCH (10:12)
--- NOTE | 2017-10-17 12:29 | Internal Med Progress Note ---
Medical - PN: Subj Patient information: Note initiated : 10/17/17 at 12:26 pm Service Date, if different from initiated Date: [] Patient: Cornelia Shi a 76 y/o F admitted on 10/15/17 for Pneumonia. Chief Complaint: [] Interval history: Ms. Shi is a 76 year old Female with h/o asthma who presents to the emergency today with complains of cough and shortness of breath that has been going on for the last 1 week. According to the patient she has been not feeling well having a head cold and sinus drainage for nearly a week. She was seen by her primary care doctor on Thursday. The doctor prescribed some medications I will be she was not able to take them as she would vomit as soon as she took it. She was seen in the emergency room on Thursday, the patient was prescribed levofloxacin at that point in time. The patient was not able to tolerate levofloxacin also. She saw her primary care later and he prescribed some Zofran for her. The patient was then able to take some medications. The patient's condition did not improve and she again saw her PCP today. In the PCPs office to get a chest x-ray which revealed worsening pneumonia on the right side patient was therefore sent to the emergency room for admission as she had failed outpatient treatment. The patient's cough is associated with whitish greenish sputum. There is no hemoptysis, shortness of breath is worse with exertion. She has a sinus headache, no changes in vision she admits to having some difficulty in swallowing or throat irritation. She has some chest pain with coughing. Shortness of breath and cough. Nausea and vomiting no blood in the vomitus. No abdominal pain no constipation no diarrhea no melena. No urinary symptoms. No joint pain no skin rashes, she has no suicidal ideations. In the emergency room patient is afebrile, vital signs are stable, she was saturating more than 90% on 2 L of oxygen. She was able to speak full sentences. Blood work reviewed she does not have leukocytosis, her chemistry panel was normal. X-ray chest shows worsening pneumonia on the right side right middle lobe and right basilar lobe. She also had bilateral expiratory wheezing on exam. She is therefore being admitted to the hospital for further management october 16 Patient seen and examined no acute overnight events, she was doing better today still had some nausea this morning after her workout with physical therapy otherwise she feels improved compared to yesterday. She has no acute complaints October 17 Patient seen and examined no acute overnight events, patient feels a little better but still feels quite weak. She notes that she has sinus drainage and was concerned that the antibiotic use for pneumonia or covering for her sinuses. She also has increased episodes of urinary incontinence. Her chest x-ray shows pneumonia no radiological improvement Microbiology is negative so far Patient's oxygen saturation is normal on room air however she gets tired with ambulation Pertinent ROS: Denies headache, dizziness Denies chest pain, palpitations stable, some what improving cough and shortness of breath Denies abdominal pain, nausea or vomiting. - Constitutional Vitals: Vital Signs Temp Pulse Resp BP Pulse Ox 98.1 F 78 22 151/76 92 10/17/17 11:55 10/17/17 11:55 10/17/17 11:55 10/17/17 11:55 10/17/17 11:55 Period Temp Pulse Resp BP Sys/Rodriguez Pulse Ox Last 24 Hr 96.4 F-98.3 F 78-98 16-22 124-157/72-84 91-95 Intake and Output 10/16/17 10/17/17 10/17/17 21:59 05:59 13:59 Intake Total 1000 / 1000 500 / 500 200 / 200 Output Total 551 / 551 100 / 100 101 / 101 Balance 449 / 449 400 / 400 99 / 99 Weight 137 lb 3.2 oz Intake & Output: Intake & Output 10/16/17 10/17/17 10/17/17 21:59 05:59 13:59 Intake Total 1000 / 1000 500 / 500 200 / 200 Output Total 551 / 551 100 / 100 101 / 101 Balance 449 / 449 400 / 400 99 / 99 Weight 137 lb 3.2 oz Intake: Oral 1000 / 1000 500 / 500 200 / 200 Output: Void Amount 550 / 550 100 / 100 100 / 100 # of times incontinent of urine Other: Meal Dinner Breakfast Percent of Meal Consumed 75% 100% Feeding Ability Independent Stool Size Small Stool Color Brown Stool Consistency Loose # Bowel Movements 1 Exam: Constitutional; Afebrile, cooperative, alert, not in distress. Eyes- No icterus, , No periorbital swelling Ears- Ext ear normal, hearing normal to conversation. Neck- Midline trachea, supple Respiratory system: Air Entry equal on both sides, right basilar crackles, no wheezing this time patient able to speak full sentences no use of accessory muscle CVS- Rate rhythm regular, S1,S2 heard, no gallop, no rub. Abdomen- Soft nontender abdomen, no organomegaly, no tenderness, no guarding or rigidity, PROOF INSPECTOR- AOOx3, moving all extremities, no gross focal deficit noted. Medical - PN: Obj Da - Labs CBC & Chem 7: 10/17/17 04:06 10/17/17 04:06 Labs: Abnormal Lab Results 10/17/17 10/17/17 10/16/17 04:06 04:06 04:44 WBC 11.6 H Hct RDW 14.8 H Gran % 83.6 H Lymph % (Auto) 7.8 L Gran # 9.7 H Lymph # (Auto) 0.9 L Myelocytes % Glucose 166 H 163 H Urine WBC Calcium Oxalate Crystal Urine Mucus 10/16/17 10/15/17 10/15/17 04:44 11:46 11:31 WBC Hct 35.8 L RDW Gran % 83.2 H Lymph % (Auto) 11.8 L Gran # Lymph # (Auto) 0.8 L Myelocytes % 1 H Glucose Urine WBC 6 H Calcium Oxalate Crystal Few A Urine Mucus Many A Meds: Medications Acetaminophen (Tylenol) 650 mg PO Q6HP PRN PRN Reason: PAIN/FEVER > 101 Acyclovir (Zovirax) 400 mg PO QDAY [facility] Last Admin: 10/17/17 09:45 Dose: 400 mg Albuterol Sulfate (Ventolin) 1 puff INH QDAY [facility] Last Admin: 10/17/17 10:12 Dose: 1 puff Albuterol/Ipratropium (Duoneb) 3 ml NEB Q6HRT [facility] Last Admin: 10/17/17 09:48 Dose: Not Given Aspirin (Aspirin) 81 mg PO HS [facility] Last Admin: 10/16/17 20:44 Dose: 81 mg Calcium Carbonate/Glycine (Tums) 1,500 mg CHEWED BID [facility] Last Admin: 10/17/17 09:46 Dose: 1,500 mg Ceftriaxone Sodium (Rocephin) 1 gm IV DAILY [facility] Last Admin: 10/17/17 09:46 Dose: 1 gm Docusate Sodium (Colace) 100 mg PO BID [facility] Last Admin: 10/17/17 09:47 Dose: Not Given Ezetimibe (Zetia) 10 mg PO QDAY [facility] Last Admin: 10/17/17 09:44 Dose: 10 mg Glucosamine/Chondroitin (Glucosamine-Chondroitin Cap) 2 cap PO DAILY [facility] Last Admin: 10/17/17 09:45 Dose: 2 cap Heparin Sodium (Porcine) (Heparin) 5,000 unit SQ Q12 [facility] Last Admin: 10/17/17 09:47 Dose: 5,000 unit Hydromorphone HCl (Dilaudid) 0.5 mg IV Q2HP PRN PRN Reason: PAIN LEVEL > 6 Hydroxyzine HCl (Atarax) 25 mg PO TIDP PRN PRN Reason: Anxiety Azithromycin 250 mg/ Dextrose 250 mls @ 250 mls/hr IV DAILY [facility] Stop: 10/19/17 09:59 Last Admin: 10/17/17 10:11 Dose: 250 mls/hr Iron Carb/Multivit/Hana/Folic Acid (Multivitamin W/Minerals) 1 tab PO DAILY [facility] Last Admin: 10/17/17 09:45 Dose: 1 tab Lactobacillus Rhamnosus (Culturelle) 1 cap PO DAILY [facility] Last Admin: 10/17/17 09:44 Dose: 1 cap Loratadine (Claritin) 5 mg PO BID [facility] Last Admin: 10/17/17 09:45 Dose: 5 mg Methylprednisolone Sodium Succinate (Solu-Medrol) 62.5 mg IV Q8 [facility] Last Admin: 10/17/17 05:37 Dose: 62.5 mg Metoprolol Succinate (Toprol Xl) 25 mg PO HS [facility] Last Admin: 10/16/17 20:46 Dose: 25 mg Mirtazapine (Remeron) 15 mg PO QHS [facility] Last Admin: 10/16/17 20:45 Dose: 15 mg Montelukast Sodium (Singular) 10 mg PO QPM [facility] Last Admin: 10/16/17 20:45 Dose: 10 mg Naloxone HCl (Narcan) 0.1 mg IV Q2MIN PRN PRN Reason: Opiate Reversal Olopatadine HCl (Patanol 0.1% Ophth Drops) 2 gtt OU DAILYP PRN PRN Reason: Dry Eye(s) Ondansetron HCl (Zofran) 4 mg IV Q6HP PRN PRN Reason: Nausea And Vomiting Fluticasone/Vilanterol [Breo Ellipta 200-25 Mcg Inhaler] 1 dose INH QDAY [facility] Last Admin: 10/17/17 10:00 Dose: 1 dose Sodium Chloride (Saline Flush) 10 ml IV Q8 [facility] Last Admin: 10/17/17 05:37 Dose: 10 ml Medical - PN: A/P - Time Spent With Patient Total time spent is greater than 50% in coordination of care (as documented) at patient's floor/unit and/or counseling patient: - Narrative A/P Narrative: A/P Community Acquired Pneumonia- Failed outpatient therapy Nausea and Vomiting Acute asthma exacerbation Arthritis Depression Urinary Incontinence, (chr issue worse while in hospital) Plan Continue IV rocephin and zithromax Negative culture so far Given symptomatic urinary incontinence recheck UA IV zofran for nausea and vomiting IV fluids for now no e/o sepsis Continue iv steroids for asthma exacerbation along with duonebs leukocytosis could be attributed to use of steroids patient does not have wheezing anymore we will change to oral steroids from tomorrow DVT hep sq Diet regular full code. Medical - PN: Qual - VTE Deep Vein Thrombosis/Pulmonary Embolism Present on Admission: No
[2017-10-17 15:38] LABS: Appearance,Urine CLEAR; Bacteria,Urine 0 /hpf (0); Bilirubin,Urine NEG (NEG); Color,Urine YELLOW; Glucose,Urine (UA) NEGATIVE (NEG); Leukocyte Esterase,Urine NEG /uL (NEG); Mucus,Urine FEW /hpf (0); Protein,Urine NEG (NEG); Specific Gravity,Urine 1.011 (1.000-1.035); Urine Blood NEG mg/dL (<0.03); Urine RBC < 1 /hpf (0-1); Urine Squamous Epithelial Cell 1 /hpf (0-4); Urine WBC 1 /hpf (0-4); Urobilinogen,Urine NEG (NEG)
[2017-10-17] MEDS: MIRTAZAPINE 15 MG TABLET PO SCH (21:45)
[2017-10-17] MEDS: ASPIRIN 81 MG TAB.CHEW PO SCH (21:45)
[2017-10-17] MEDS: MONTELUKAST 10 MG TABLET PO SCH (21:46)
[2017-10-17] MEDS: METOPROLOL SUCCINATE 25 MG TAB.XL.24H PO SCH (21:46)
[2017-10-18] MEDS: IPRATROPIUM/ALBUTEROL 3 ML AMPUL.NEB NEB SCH ×4 (01:08→19:25)
[2017-10-18] MEDS: 0.9 % SODIUM CHLORIDE 10 ML SYRINGE IV SCH ×3 (05:32→21:55)
[2017-10-18 06:07] LABS: Basophils # (Auto) 0 K/mcL (0.0-0.3); Basophils % (Auto) 0.2 % (0.0-2.0); Eosinophils # (Auto) 0.2 K/mcL (0.0-0.7); Eosinophils % (Auto) 2.1 % (0.0-7.0); Granulocytes % (Auto) 74.3 % (38.0-78.0); Lymphocytes # (Auto) 1.6 K/mcL (1.5-4.8); Lymphocytes % (Auto) 14.5 % (15.5-49.0); Mean Cell Volume 84.6 fL (80.0-100.0); Mean Corpuscular HGB Conc 33.8 g/dL (31.0-36.0); Mean Corpuscular Hemoglobin 28.6 pg (26.0-34.0); Monocytes % (Auto) 8.9 % (1.0-12.0); Platelet Count 306 K/mcL (140-440); RBC 4.59 M/mcL (4.00-5.20); Red Cell Distribution Width 14.4 % (11.5-14.5)
[2017-10-18 06:40] LABS: ALT/SGPT 20 U/l (0-40); Albumin 4.1 gm/dL (3.2-5.2); Albumin/Globulin Ratio 1.5 (1.0-2.3); Alkaline Phosphatase 68 U/L (39-117); Bilirubin,Direct < 0.2 mg/dL (0.0-0.3); Blood Urea Nitrogen 20 mg/dl (8-23); Gamma Glutamyl Transpeptidase 32 U/L (5-36); Uric Acid 5.1 mg/dL (2.5-8.0)
[2017-10-18] MEDS ORDERED: POTASSIUM CHLORIDE 40 MEQ in DEXTROSE 5% IN WATER 500 ML IV ONE (07:10)
[2017-10-18] MEDS: HEPARIN 5,000 UNIT/ML VIAL SQ SCH ×2 (08:08→21:54)
[2017-10-18] MEDS: GLUCOSAMINE/CHONDROITIN SULF A 1 CAP CAPSULE PO SCH (08:08)
[2017-10-18] MEDS: predniSONE 20 MG TABLET PO SCH (08:09)
[2017-10-18] MEDS: LACTOBACILLUS 1 CAPSULE PO SCH (08:09)
[2017-10-18] MEDS: cefTRIAXone 1 GM VIAL IV SCH (08:09)
[2017-10-18] MEDS: CALCIUM CARBONATE 500 MG TAB.CHEW CHEWED SCH ×2 (08:09→21:50)
[2017-10-18] MEDS: EZETIMIBE 10 MG TABLET PO SCH (08:09)
[2017-10-18] MEDS: LORATADINE 10 MG TABLET PO SCH ×2 (08:09→21:53)
[2017-10-18] MEDS: ACYCLOVIR 400 MG TABLET PO SCH (08:09)
[2017-10-18] MEDS: DOCUSATE SODIUM 100 MG CAPSULE PO SCH ×2 (08:10→21:50)
[2017-10-18] MEDS: Fluticasone/Vilanterol [Breo Ellipta 200-25 Mcg Inhaler] INH SCH (08:10)
[2017-10-18] MEDS: MULTIVIT,THER IRON,CA,FA & MIN 1 TABLET PO SCH (08:10)
[2017-10-18] MEDS: ALBUTEROL SULFATE 1 PUFF INHALER INH SCH (08:12)
[2017-10-18] MEDS: AZITHROMYCIN 250 MG in DEXTROSE 5% IN WATER 250 ML IV SCH (08:36)
--- NOTE | 2017-10-18 18:02 | Internal Med Progress Note ---
Medical - PN: Subj Patient information: Note initiated : 10/18/17 at 5:57 pm Service Date, if different from initiated Date: [] Patient: Cornelia Shi a 76 y/o F admitted on 10/15/17 for Pneumonia. Chief Complaint: [] Interval history: Ms. Shi is a 76 year old Female with h/o asthma who presents to the emergency today with complains of cough and shortness of breath that has been going on for the last 1 week. According to the patient she has been not feeling well having a head cold and sinus drainage for nearly a week. She was seen by her primary care doctor on Thursday. The doctor prescribed some medications I will be she was not able to take them as she would vomit as soon as she took it. She was seen in the emergency room on Thursday, the patient was prescribed levofloxacin at that point in time. The patient was not able to tolerate levofloxacin also. She saw her primary care later and he prescribed some Zofran for her. The patient was then able to take some medications. The patient's condition did not improve and she again saw her PCP today. In the PCPs office to get a chest x-ray which revealed worsening pneumonia on the right side patient was therefore sent to the emergency room for admission as she had failed outpatient treatment. The patient's cough is associated with whitish greenish sputum. There is no hemoptysis, shortness of breath is worse with exertion. She has a sinus headache, no changes in vision she admits to having some difficulty in swallowing or throat irritation. She has some chest pain with coughing. Shortness of breath and cough. Nausea and vomiting no blood in the vomitus. No abdominal pain no constipation no diarrhea no melena. No urinary symptoms. No joint pain no skin rashes, she has no suicidal ideations. In the emergency room patient is afebrile, vital signs are stable, she was saturating more than 90% on 2 L of oxygen. She was able to speak full sentences. Blood work reviewed she does not have leukocytosis, her chemistry panel was normal. X-ray chest shows worsening pneumonia on the right side right middle lobe and right basilar lobe. She also had bilateral expiratory wheezing on exam. She is therefore being admitted to the hospital for further management october 16 Patient seen and examined no acute overnight events, she was doing better today still had some nausea this morning after her workout with physical therapy otherwise she feels improved compared to yesterday. She has no acute complaints October 17 Patient seen and examined no acute overnight events, patient feels a little better but still feels quite weak. She notes that she has sinus drainage and was concerned that the antibiotic use for pneumonia or covering for her sinuses. She also has increased episodes of urinary incontinence. Her chest x-ray shows pneumonia no radiological improvement Microbiology is negative so far Patient's oxygen saturation is normal on room air however she gets tired with ambulation October 18 patient seen and examined no acute overnight events patient still feels weak and that she has not recovered completely she still has cough, she notes that she has been having epigastric discomfort and nausea which is intermittent. The leukocytosis is slightly better today, potassium is low at 3.0 which is being replaced. Plan to repeat chest x-ray today and get an ultrasound of the gallbladder Continue IV antibiotics for now, Pertinent ROS: Denies headache, dizziness Denies chest pain, palpitations Cough and shortness of breath present Denies abdominal pain, nausea or vomiting. - Constitutional Vitals: Vital Signs Temp Pulse Resp BP Pulse Ox 97.8 F 90 16 139/85 94 10/18/17 16:00 10/18/17 13:26 10/18/17 16:00 10/18/17 16:00 10/18/17 16:00 Period Temp Pulse Resp BP Sys/Rodriguez Pulse Ox Last 24 Hr 97.2 F-99.1 F 79-90 16-22 138-170/73-92 87-94 Intake and Output 10/18/17 10/18/17 10/18/17 05:59 13:59 21:59 Intake Total 350 / 350 250 / 250 480 / 480 Output Total 250 / 250 1300 / 1300 Balance 100 / 100 -1050 / -1050 480 / 480 Intake & Output: Intake & Output 10/18/17 10/18/17 10/18/17 05:59 13:59 21:59 Intake Total 350 / 350 250 / 250 480 / 480 Output Total 250 / 250 1300 / 1300 Balance 100 / 100 -1050 / -1050 480 / 480 Intake: IV 250 / 250 Zithromax 250 mg In Dextrose 5% 250 / 250 in Water 250 ml @ 250 mls/hr IV DAILY [facility] Rx#:[id number] Oral 350 / 350 480 / 480 Output: Void Amount 250 / 250 1300 / 1300 Other: Meal Lunch # Voids 1 Exam: Constitutional; Afebrile, cooperative, alert, not in distress. Eyes- No icterus, , No periorbital swelling Ears- Ext ear normal, hearing normal to conversation. Neck- Midline trachea, supple Respiratory system: Air Entry equal on both sides,, mild basilar crackles rt > left no wheezing, unable to speak full sentences no accessory muscle use CVS- Rate rhythm regular, S1,S2 heard, no gallop, no rub. Abdomen- Soft nontender abdomen, no organomegaly, no tenderness, no guarding or rigidity, [employer]- AOOx3, moving all extremities, no gross focal deficit noted. Medical - PN: Obj Da - Labs CBC & Chem 7: 10/18/17 05:03 10/18/17 05:03 Labs: Abnormal Lab Results 10/18/17 10/18/17 10/17/17 05:03 05:03 04:06 WBC 11.2 H Hct RDW Gran % Lymph % (Auto) 14.5 L Gran # 8.3 H Lymph # (Auto) [place] # (Auto) 1.0 H Potassium 3.0 L Glucose 166 H Phosphorus 2.1 L Triglycerides 307 H 10/17/17 10/16/17 10/16/17 04:06 04:44 04:44 WBC 11.6 H Hct 35.8 L RDW 14.8 H Gran % 83.6 H 83.2 H Lymph % (Auto) 7.8 L 11.8 L Gran # 9.7 H Lymph # (Auto) 0.9 L 0.8 L [place] # (Auto) Potassium Glucose 163 H Phosphorus Triglycerides Meds: Medications Acetaminophen (Tylenol) 650 mg PO Q6HP PRN PRN Reason: PAIN/FEVER > 101 Acyclovir (Zovirax) 400 mg PO QDAY [facility] Last Admin: 10/18/17 08:09 Dose: 400 mg Albuterol Sulfate (Ventolin) 1 puff INH QDAY [facility] Last Admin: 10/18/17 08:12 Dose: 1 puff Albuterol/Ipratropium (Duoneb) 3 ml NEB Q6HRT [facility] Last Admin: 10/18/17 13:22 Dose: 3 ml Aspirin (Aspirin) 81 mg PO HS [facility] Last Admin: 10/17/17 21:45 Dose: 81 mg Calcium Carbonate/Glycine (Tums) 1,500 mg CHEWED BID [facility] Last Admin: 10/18/17 08:09 Dose: 1,500 mg Ceftriaxone Sodium (Rocephin) 1 gm IV DAILY [facility] Last Admin: 10/18/17 08:09 Dose: 1 gm Docusate Sodium (Colace) 100 mg PO BID [facility] Last Admin: 10/18/17 08:10 Dose: Not Given Ezetimibe (Zetia) 10 mg PO QDAY [facility] Last Admin: 10/18/17 08:09 Dose: 10 mg Glucosamine/Chondroitin (Glucosamine-Chondroitin Cap) 2 cap PO DAILY [facility] Last Admin: 10/18/17 08:08 Dose: 2 cap Heparin Sodium (Porcine) (Heparin) 5,000 unit SQ Q12 [facility] Last Admin: 10/18/17 08:08 Dose: 5,000 unit Hydromorphone HCl (Dilaudid) 0.5 mg IV Q2HP PRN PRN Reason: PAIN LEVEL > 6 Hydroxyzine HCl (Atarax) 25 mg PO TIDP PRN PRN Reason: Anxiety Azithromycin 250 mg/ Dextrose 250 mls @ 250 mls/hr IV DAILY [facility] Stop: 10/19/17 09:59 Last Infusion: 10/18/17 09:39 Dose: Infused Iron Carb/Multivit/[place]/Folic Acid (Multivitamin W/Minerals) 1 tab PO DAILY [facility] Last Admin: 10/18/17 08:10 Dose: 1 tab Lactobacillus Rhamnosus (Culturelle) 1 cap PO DAILY [facility] Last Admin: 10/18/17 08:09 Dose: 1 cap Loratadine (Claritin) 5 mg PO BID [facility] Last Admin: 10/18/17 08:09 Dose: 5 mg Metoprolol Succinate (Toprol Xl) 25 mg PO HS [facility] Last Admin: 10/17/17 21:46 Dose: 25 mg Mirtazapine (Remeron) 15 mg PO QHS [facility] Last Admin: 10/17/17 21:45 Dose: 15 mg Montelukast Sodium (Singular) 10 mg PO QPM [facility] Last Admin: 10/17/17 21:46 Dose: 10 mg Naloxone HCl (Narcan) 0.1 mg IV Q2MIN PRN PRN Reason: Opiate Reversal Olopatadine HCl (Patanol 0.1% Ophth Drops) 2 gtt OU DAILYP PRN PRN Reason: Dry Eye(s) Ondansetron HCl (Zofran) 4 mg IV Q6HP PRN PRN Reason: Nausea And Vomiting Last Admin: 10/18/17 08:08 Dose: 4 mg Fluticasone/Vilanterol [Breo Ellipta 200-25 Mcg Inhaler] 1 dose INH QDAY [facility] Last Admin: 10/18/17 08:10 Dose: 1 dose Prednisone (Prednisone) 40 mg PO QAMCC [facility] Last Admin: 10/18/17 08:09 Dose: 40 mg Sodium Chloride (Saline Flush) 10 ml IV Q8 [facility] Last Admin: 10/18/17 14:44 Dose: 10 ml Medical - PN: A/P - Time Spent With Patient Total time spent is greater than 50% in coordination of care (as documented) at patient's floor/unit and/or counseling patient: - Narrative A/P Narrative: A/P Community Acquired Pneumonia- Failed outpatient therapy Nausea and Vomiting Acute asthma exacerbation Arthritis Depression Urinary Incontinence, (chr issue worse while in hospital) Plan Continue IV rocephin and zithromax, broaden antibiotic coverage if the chest x- ray shows worsening of the infection or if clinical situation worsens Negative culture so far UA is negative no evidence of urinary tract infection IV zofran for nausea and vomiting IV PPI to be added to her regimen, get ultrasound of the gallbladder to evaluate any gallbladder dysfunction, or gallstones are the source of nausea and vomiting Wheezing has resolved, patient is on p.o. steroids and duo nebs DVT hep sq Diet regular full code. Medical - PN: Qual - VTE Deep Vein Thrombosis/Pulmonary Embolism Present on Admission: No
[2017-10-18] MEDS ORDERED: PANTOPRAZOLE 40 MG VIAL IV ONE (19:18)
[2017-10-18] MEDS: PANTOPRAZOLE 40 MG VIAL IV SCH (19:25)
[2017-10-18] MEDS: ASPIRIN 81 MG TAB.CHEW PO SCH (21:54)
[2017-10-18] MEDS: MIRTAZAPINE 15 MG TABLET PO SCH (21:54)
[2017-10-18] MEDS: METOPROLOL SUCCINATE 25 MG TAB.XL.24H PO SCH (21:54)
[2017-10-18] MEDS: MONTELUKAST 10 MG TABLET PO SCH (21:54)
[2017-10-19] MEDS: IPRATROPIUM/ALBUTEROL 3 ML AMPUL.NEB NEB SCH ×3 (01:01→14:22)
[2017-10-19 05:15] LABS: Basophils # (Auto) 0 K/mcL (0.0-0.3); Basophils % (Auto) 0.2 % (0.0-2.0); Eosinophils # (Auto) 0.2 K/mcL (0.0-0.7); Eosinophils % (Auto) 2.3 % (0.0-7.0); Granulocytes % (Auto) 71.1 % (38.0-78.0); Lymphocytes # (Auto) 1.4 K/mcL (1.5-4.8); Lymphocytes % (Auto) 15.4 % (15.5-49.0); Mean Cell Volume 83.9 fL (80.0-100.0); Mean Corpuscular Hemoglobin 28.5 pg (26.0-34.0); Platelet Count 295 K/mcL (140-440); RBC 4.34 M/mcL (4.00-5.20); Red Cell Distribution Width 14.1 % (11.5-14.5)
--- NOTE | 2017-10-19 05:39 | XRay Report ---
INDICATION: Right lower lobe infiltrate. Follow-up TECHNIQUE: PA and lateral upright chest x-ray COMPARISON: Multiple previous chest x-rays including examinations dated 10/17/2017, 10/15/2017, 10/12/2017, 10/09/2017 FINDINGS:Mild right lower lobe infiltrate is essentially stable since 10/15/2017. Left lung is negative. Heart size and vascularity are normal. No new abnormalities. No significant interval change. IMPRESSION: 1. Mild right lower lobe infiltrate 2. No significant interval change Interpreted and Authenticated by: Zeke Patel 10/19/17
[2017-10-19 05:47] LABS: ALT/SGPT 17 U/l (0-40); Albumin 3.6 gm/dL (3.2-5.2); Albumin/Globulin Ratio 1.3 (1.0-2.3); Alkaline Phosphatase 64 U/L (39-117); Bilirubin,Direct < 0.2 mg/dL (0.0-0.3); Blood Urea Nitrogen 14 mg/dl (8-23); Gamma Glutamyl Transpeptidase 35 U/L (5-36); Uric Acid 4.8 mg/dL (2.5-8.0)
[2017-10-19] MEDS: 0.9 % SODIUM CHLORIDE 10 ML SYRINGE IV SCH (06:47)
--- NOTE | 2017-10-19 07:53 | Ultrasound Report ---
CLINICAL INFORMATION: Right upper quadrant pain TECHNIQUE: Grayscale and color flow Doppler spectral imaging COMPARISON: CT scan dated 12/29/2013 FINDINGS: Multiple small gallstones layering in the dependent portion of the gallbladder. No gallbladder wall thickening. No pericholecystic fluid. No dilated bile ducts. Common bile that measures 5 mm. There is a cyst in the right lobe of the liver. This measures 2.5 x 2.3 of 2.5 cm. This is unchanged and benign. No solid mass. Liver contour is smooth. No evidence for cirrhosis. Visualized portions of the pancreas are negative. Normal hepatopedal portal venous flow. IMPRESSION: 1. Cholelithiasis 2. Benign hepatic cyst Interpreted and Authenticated by: Zeke Patel 10/19/17
[2017-10-19] MEDS: PANTOPRAZOLE 40 MG VIAL IV SCH (09:00)
[2017-10-19] MEDS: cefTRIAXone 1 GM VIAL IV SCH (09:07)
[2017-10-19] MEDS: MULTIVIT,THER IRON,CA,FA & MIN 1 TABLET PO SCH (09:19)
[2017-10-19] MEDS: LACTOBACILLUS 1 CAPSULE PO SCH (09:21)
[2017-10-19] MEDS: GLUCOSAMINE/CHONDROITIN SULF A 1 CAP CAPSULE PO SCH (09:22)
[2017-10-19] MEDS: LORATADINE 10 MG TABLET PO SCH (09:25)
[2017-10-19] MEDS: DOCUSATE SODIUM 100 MG CAPSULE PO SCH (09:25)
[2017-10-19] MEDS: EZETIMIBE 10 MG TABLET PO SCH (09:28)
[2017-10-19] MEDS: ACYCLOVIR 400 MG TABLET PO SCH (09:28)
[2017-10-19] MEDS: predniSONE 20 MG TABLET PO SCH (09:29)
[2017-10-19] MEDS: CALCIUM CARBONATE 500 MG TAB.CHEW CHEWED SCH (09:31)
[2017-10-19] MEDS: HEPARIN 5,000 UNIT/ML VIAL SQ SCH (09:32)
[2017-10-19] MEDS: AZITHROMYCIN 250 MG in DEXTROSE 5% IN WATER 250 ML IV SCH (09:33)
--- NOTE | 2017-10-19 10:51 | Discharge Summary ---
Medical - DS: Prov Patient information: Note initiated : 10/19/17 at 10:49 am Service Date, if different from initiated Date: [] Patient: Cornelia Shi 76 y/o F admitted on 10/15/17 for Pneumonia. Chief Complaint: [] Date of admission: 10/15/17 17:12 Discharge date: 10/19/17 Primary care physician: Aditi Atwood Consults: 10/15/17 13:52 Consult to Physician [CONS] Stat Comment: Consulting Provider: Mindy Tracey Reason For Exam: Physician to Consult Medical - DS: Meds - Discharge Medications Prescriptions: Cefdinir 300 mg PO BID #10 cap predniSONE [Prednisone] 40 mg PO QAC #8 tab Active and Home Medications: Home Medications acyclovir 400 mg tablet 400 mg PO QDAY 90 Days #90 tab 03/06/15 [Rx Confirmed Last Taken 10/14/17 09:00] mirtazapine 15 mg tablet 15 mg PO QHS #30 tab 03/29/15 [Rx Confirmed 10/15/17 Last Taken 10/14/17 21:00] Aspirin [Adult Low Dose Aspirin EC] 81 mg PO HS 05/28/15 [History Confirmed Last Taken 10/13/17 08:00] L.acidophilus-Bif. animalis 1 tab PO QDAY 06/11/15 [History Confirmed 10/15/17 Last Taken 10/13/17 08:00] albuterol sulfate HFA 90 mcg/actuation aerosol inhaler 1 puff INHALATION QDAY 17 Days 06/11/15 [History Confirmed 10/15/17 Last Taken 10/15/17 08:00] calcium carbonate 600 mg (1,500 mg)-vitamin D3 200 unit tablet 1 tab PO BID 04/17 [History Confirmed 10/15/17 Last Taken 10/13/17 17:00] fluticasone 200 mcg-vilanterol 25 mcg/dose powder for inhalation 1 each INHALATION QDAY each 06/11/15 [History Confirmed 10/15/17 Last Taken 10/15/17 08:00] glucosamine 750 [id number] no1 644 mg-C 30 mg-anne 1 mg tablet 2 tab PO BIDCC tab 06/11/15 [History Confirmed 10/17/17 Last Taken 10/13/17 09:00] montelukast 10 mg tablet 10 mg PO QPM 06/11/15 [History Confirmed 10/15/17 Last Taken 10/13/17 08:00] multivitamin with minerals tablet 1 tab-cap PO QDAY tab 06/11/15 [History Confirmed 10/15/17 Last Taken 10/13/17 08:00] olopatadine 0.1 % eye drops 2 drp OPHTHALMIC ONCE PRN ml 06/11/15 [History Confirmed 10/15/17 Last Taken 10/15/17 08:00] loratadine 5 mg disintegrating tablet 5 mg PO Q12H #60 tab 11/06/15 [Rx Confirmed 10/15/17 Last Taken 10/13/17 08:00] ezetimibe 10 mg tablet 10 mg PO QDAY 05/20/17 [History Confirmed 10/15/17 Last Taken 10/14/17 08:00] hydrOXYzine [Atarax] 25 mg PO TIDP PRN 09/20/17 [History Confirmed 10/15/17 Last Taken 09/03/17 08:00] Ondansetron HCl [Zofran ODT] 4 mg SL Q4-6HP PRN 10/15/17 [History Confirmed Last Taken 10/15/17 08:00] Fluticasone Furoate [Arnuity Ellipta] 1 puff IH DAILY 10/16/17 [History Confirmed 10/16/17 Last Taken 10/15/17 08:00] Metoprolol Succinate [Toprol Xl] 25 mg PO HS 10/16/17 [History Confirmed Last Taken Unknown] Cefdinir 300 mg PO BID #10 cap 10/19/17 [Rx Last Taken Unknown] predniSONE [Prednisone] 40 mg PO QAC #8 tab 10/19/17 [Rx Last Taken Unknown] Medical - DS: Hosp Hospital course: Discharge diagnosis Community Acquired Pneumonia- Failed outpatient therapy.managed on Zithromax/ Rocephin. Continue additional 5 days oral third generation cephalosporin Nausea and Vomiting-negative gallbladder ultrasound for cholecystitis except for cholelithiasis Acute asthma exacerbation-clinically improved with bronchodilators/steroids. Continue prednisone for additional 4 days Arthritis-stable Depression Urinary Incontinence, (chr issue worse while in hospital) BRIEF HOSPITAL COURSE Ms. Shi is a 76 year old Female with h/o asthma who presents to the emergency today with complains of cough and shortness of breath that has been going on for the last 1 week. According to the patient she has been not feeling well having a head cold and sinus drainage for nearly a week. She was seen by her primary care doctor on Thursday. The doctor prescribed some medications I will be she was not able to take them as she would vomit as soon as she took it. She was seen in the emergency room on Thursday, the patient was prescribed levofloxacin at that point in time. The patient was not able to tolerate levofloxacin also. She saw her primary care later and he prescribed some Zofran for her. The patient was then able to take some medications. The patient's condition did not improve and she again saw her PCP today. In the PCPs office to get a chest x-ray which revealed worsening pneumonia on the right side patient was therefore sent to the emergency room for admission as she had failed outpatient treatment. The patient's cough is associated with whitish greenish sputum. There is no hemoptysis, shortness of breath is worse with exertion. She has a sinus headache, no changes in vision she admits to having some difficulty in swallowing or throat irritation. She has some chest pain with coughing. Shortness of breath and cough. Nausea and vomiting no blood in the vomitus. No abdominal pain no constipation no diarrhea no melena. No urinary symptoms. No joint pain no skin rashes, she has no suicidal ideations. In the emergency room patient is afebrile, vital signs are stable, she was saturating more than 90% on 2 L of oxygen. She was able to speak full sentences. Blood work reviewed she does not have leukocytosis, her chemistry panel was normal. X-ray chest shows worsening pneumonia on the right side right middle lobe and right basilar lobe. She also had bilateral expiratory wheezing on exam. She is therefore being admitted to the hospital for further management october 16 Patient seen and examined no acute overnight events, she was doing better today still had some nausea this morning after her workout with physical therapy otherwise she feels improved compared to yesterday. She has no acute complaints October 17 Patient seen and examined no acute overnight events, patient feels a little better but still feels quite weak. She notes that she has sinus drainage and was concerned that the antibiotic use for pneumonia or covering for her sinuses. She also has increased episodes of urinary incontinence. Her chest x-ray shows pneumonia no radiological improvement Microbiology is negative so far Patient's oxygen saturation is normal on room air however she gets tired with ambulation October 18 patient seen and examined no acute overnight events patient still feels weak and that she has not recovered completely she still has cough, she notes that she has been having epigastric discomfort and nausea which is intermittent. The leukocytosis is slightly better today, potassium is low at 3.0 which is being replaced. Plan to repeat chest x-ray today and get an ultrasound of the gallbladder Continue IV antibiotics for now, October 19-patient doing well. No overnight events. On 3 L oxygen. Follow-up PCP in 5-7 days. Continue antibiotics for additional 5 days along with steroids for 4 days. exercise oximetry prior discharge for home oxygen evaluation. Continue home health physical therapy. Detailed discharge instructions/medications as below Discharge diagnosis: . - Time Spent with Patient Total time spent providing and/or coordinating discharge services: Greater than 30 minutes Medical - DS: Exam - Constitutional Vitals: Vital Signs Temp Pulse Pulse Resp BP BP Pulse Ox 10/19/17 07:58 97.4 F 79 14 149/82 90 10/19/17 04:00 98.2 F 69 16 159/87 93 10/19/17 00:00 98.9 F 70 18 152/77 93 10/18/17 19:23 98.2 F 89 18 142/82 91 10/18/17 16:00 97.8 F 16 139/85 94 10/18/17 13:26 90 16 10/18/17 13:23 90 10/18/17 13:22 90 10/18/17 12:00 97.7 F 18 166/92 87 L Intake and Output 10/18/17 10/19/17 10/19/17 21:59 05:59 13:59 Intake Total 1000 / 1000 500 / 500 8 / 8 Output Total 501 / 501 200 / 200 Balance 499 / 499 500 / 500 -192 / -192 Intake: IV 520 / 520 Oral 480 / 480 500 / 500 8 8 Output: Void Amount 500 / 500 200 / 200 # of times incontinent of urine Other: Meal sherbert ice cream Breakfast Percent of Meal Consumed 100% 100% Feeding Ability Independent Independent # Voids 1 Weight 134 lb 4.8 oz Medical - DS: Data Labs on day of discharge: Labs from last 24 hours 10/19/17 10/19/17 10/15/17 04:07 04:07 11:46 WBC 8.9 RBC 4.34 Hgb 12.4 Hct 36.4 MCV 83.9 MCH 28.5 MCHC 34.0 RDW 14.1 Plt Count 295 MPV 7.2 L Gran % 71.1 Lymph % (Auto) 15.4 L [place] % (Auto) 11.0 Eos % (Auto) 2.3 Baso % (Auto) 0.2 Gran # 6.3 Lymph # (Auto) 1.4 L [place] # (Auto) 1.0 H Eos # (Auto) 0.2 Baso # (Auto) 0 Sodium 142 Potassium 3.9 Chloride 103 Carbon Dioxide 25 Anion Gap 14.0 BUN 14 Creatinine 0.9 GFR Calculation 62 Glucose 116 H Uric Acid 4.8 Calcium 8.9 Phosphorus 2.8 Magnesium 2.2 Total Bilirubin 0.3 Direct Bilirubin < 0.2 GGT 35 AST 17 ALT 17 Alkaline Phosphatase 64 Lactate Dehydrogenase 212 Total Protein 6.3 Albumin 3.6 Globulin 2.7 Albumin/Globulin Ratio 1.3 Triglycerides 260 H Ur L.pneumophila Ag Not detected Preliminary micro results at discharge 10/15/17 11:31 Blood Culture - Preliminary Blood 10/15/17 11:43 Blood Culture - Preliminary Blood Medical - DS: A/P - Patient/Caregiver Discharge Instructions Activity: as per physical therapy Diet: Regular Diet Additional Instructions: Follow-up PCP in 5 days I recommend primary care physician to check CBC BMP UA as a posthospital follow- up and Chest x-ray in 1 week. Antibiotics for additional 5 days follow surgery in 2 weeks for cholelithiasis Prednisone for 4 days oxygen @ 3 L Continue aggressive bowel regimen to prevent constipation Continue fall precautions All meals on chair sitting upright at 90 degrees to prevent aspiration Return to ER if worsening fever chills shortness of breath, diarrhea, bleeding Review risk and side effect profile of medications including antibiotics. Side effect may include mild to severe reaction including rash, diarrhea, cdiff and even which can be prevented by close follow-up with PCP Continue diet and activity as advised Discussed importance of medication adherence Please review medication list with patient prior to discharge Please schedule follow-up with PCP/Providers prior to discharge and provide printouts Portions of this chart may have been created with [employer] recognition software. Occasional wrong-word or ?sound-like? substitutions may have occurred due to the inherent limitations of voice recognition software. Please read the chart carefully and recognize, using context, where the substitutions have occurred. CC- PCP Prescriptions: Cefdinir 300 mg PO BID #10 cap predniSONE [Prednisone] 40 mg PO [facility] #8 tab - Follow up Plan Follow up with: Aditi Atwood ARNP [Primary Care Provider] - Disposition: Home Health Service Prognosis: Fair Rehab Potential: Fair I certify that the patient requires SNF services: No Overall status at discharge: patient is progressing back to baseline Medical - DS: Qual - VTE Deep Vein Thrombosis/Pulmonary Embolism Present on Admission: No
[2017-10-19] MEDS: ALBUTEROL SULFATE 1 PUFF INHALER INH SCH (11:39)
[2017-10-19] MEDS: Fluticasone/Vilanterol [Breo Ellipta 200-25 Mcg Inhaler] INH SCH (11:40)
== END 2017-10-19 14:10 | DRG 194 ==
LOC: ED 10:52 → MEDSUR 17:12
PROVIDERS: ADMIT Internal Medicine; ATTEND Internal Medicine

== ENCOUNTER 2020-04-17 21:39 | Inpatient (IN) ==
[2020-04-17] MEDS ORDERED: ACETAMINOPHEN 325 MG TABLET PO ONE (22:09)
[2020-04-17 23:32] LABS: Basophils # (Auto) 0.02 K/mcL (0.00-0.30); Basophils % (Auto) 0.2 % (0.0-2.0); Eosinophils # (Auto) 0.05 K/mcL (0.00-0.70); Eosinophils % (Auto) 0.4 % (0.0-7.0); Granulocytes % (Auto) 91.6 % (38.0-78.0); Hematocrit 39.8 % (34.1-44.9); Hemoglobin 13.7 g/dL (11.2-15.7); Lymphocytes # (Auto) 0.48 K/mcL (1.50-4.80); Lymphocytes % (Auto) 3.9 % (15.5-49.0); Mean Cell Volume 81.4 fL (80.0-100.0); Mean Corpuscular HGB Conc 34.4 g/dL (31.0-36.0); Mean Platelet Volume 9.8 fL (7.4-10.4); Monocytes # (Auto) 0.48 K/mcL (0.10-0.90); Monocytes % (Auto) 3.9 % (1.0-12.0); Platelet Count 191 K/mcL (140-440); RBC 4.89 M/mcL (3.59-5.38); Red Cell Distribution Width 14.6 % (11.5-14.5); WBC 12.4 K/mcL (4.50-11.00)
--- NOTE | 2020-04-18 00:08 | Emergency Department Note ---
Weakness HPI General Chief complaint: Weakness Stated complaint: known UTI now weakness Time Seen by Provider: 04/17/20 21:50 Mode of arrival: ambulatory Limitations: physical limitation (Arrives via ambulance.) History of Present Illness HPI Narrative: Patient describes feeling quite weak and brought by EMS after called because of her persisting weakness. Usually she is able to walk with her walker but today seem to be tilting to the left and unstable. She has not been eating normally. Because she is scheduled for CT it was suggested to only do some limited's. She did vomit once yesterday. Did have nausea. She has not been exposed to anybody who is been ill. She has not been around COVID or been tested. Yesterday was diagnosed with a UTI by Dr. Dinora Atwood and placed on a sulfa type of an antibiotic. She occasionally uses hydrocodone for her her left hip pain. She does not think she has become dehydrated, has been "guzzling water all day". Weakness to her right lower extremity seemed to happen sometime around 1145 today and prior to that was fine. Related Data Home Medications Medication Instructions Recorded Confirmed L.acidophilus-Bif. animalis 1 tab PO QDAY 06/11/15 04/18/20 fluticasone furoate 200 1 each INHALATION QDAY each 06/11/15 04/18/20 mcg-vilanterol 25 mcg/dose inhalation powder multivitamin with minerals 1 tab-cap PO QDAY tab 06/11/15 04/18/20 olopatadine 0.1 % eye drops 2 drp OPHTHALMIC ONCE PRN ml 06/11/15 04/18/20 fluticasone furoate 1 puff IH DAILY 10/16/17 04/18/20 calcium carbonate 600 mg (1,500 1 tab PO QDAY tab 09/23/19 04/18/20 mg)-vitamin D3 200 unit tablet montelukast 10 mg tablet 10 mg PO QDAY tab 09/23/19 04/18/20 umeclidinium 62.5 mcg/actuation 1 inh INHALATION QDAY 02/23/20 04/18/20 blister powder for inhalation Previous Rx's Medication Instructions Recorded acyclovir 400 mg tablet 400 mg PO QDAY 90 Days #90 tab 03/06/15 sulfamethoxazole 800 1 tab PO BID #60 tab 04/18/19 mg-trimethoprim 160 mg tablet ezetimibe 10 mg tablet 10 mg PO QDAY #90 tab 02/06/20 mirtazapine 15 mg tablet See Rx Instructions .ROUTE 02/23/20 .COMPLEX #90 tab hydrocodone 5 mg-acetaminophen 325 1 tab PO Q8H PRN #30 tab 04/16/20 mg tablet metoprolol succinate 25 mg 25 mg PO HS #30 tab 04/16/20 tablet,extended release 24 hr sulfamethoxazole 800 1 tab PO Q12H #20 tab 04/16/20 mg-trimethoprim 160 mg tablet Allergies Allergy/AdvReac Type Severity Reaction Status Date / Time Penicillins Allergy Mild Rash Verified 04/17/20 21:51 atorvastatin [From Lipitor] AdvReac Mild Body Aches Verified 04/18/20 06:38 ciprofloxacin AdvReac Mild Diarrhea Verified 04/18/20 06:38 pravastatin AdvReac Mild Diarrhea Verified 04/18/20 06:38 rosuvastatin [From Crestor] AdvReac Mild Body Aches Verified 04/18/20 06:38 Review of Systems ROS ROS Narrative: No fevers or sweats. Some chills A little tight sore throat type of feeling. No runny nose. No change in taste or smell No chest pain No cough or shortness of breath Had abdominal crampiness yesterday. No constipation, hematochezia, melena No dysuria or frequency Has had some intermittent left hip pains No headaches. Has a little bit of neck discomfort on the right side of her neck. Some lightheadedness/dizziness which is new No anxiety or depression. [facility] Narrative Patient History Narrative: Denies diabetes, hypothyroidism, renal disease, NH, CVA, TIA. Medical/Surgical/Family History All Active Problems (Updated 04/18/20 @ 02:38 by Henri Beckham DO) Acute renal failure (ARF) (Acute) Nausea and vomiting (Acute) Acute pyelonephritis (Acute) Abdominal pain (Acute) Diarrhea (Acute) Chronic fatigue (Chronic) Urinary incontinence (Chronic) Hypertension (Chronic) Insomnia (Chronic) Hyperlipidemia (Chronic) Mitral valve prolapse (Chronic) Leg pain (Chronic) Osteoporosis (Chronic) Pulmonary fibrosis (Chronic) Localized enlarged lymph nodes (Chronic) Lumbar back pain (Chronic) Thrush, oral (Chronic) Fatigue (Chronic) Chronic low back pain (Chronic) H/O bladder problems (Chronic) History of kidney problems (Chronic) Dizziness (Chronic) Chronic diarrhea (Chronic) Cervical cancer (Chronic) Carpal tunnel syndrome of right wrist (Chronic) Cardiac valve prolapse (Chronic) Joint pain (Chronic) Back pain (Chronic) Arthritis (Chronic) Hymenoptera reaction (Chronic) Perennial allergic rhinitis (Chronic) Seasonal allergic rhinitis (Chronic) Osteoarthrosis (Chronic) Mitral valve disorder (Chronic) Herpes zoster (Chronic) Asthma (Chronic) Medical History (Updated 04/18/20 @ 02:38 by Henri Beckham DO) Arthritis (Chronic) Asthma (Chronic) Sees Dr. Estes Back pain (Chronic) Breast tenderness (Resolved) Cardiac valve prolapse (Chronic) Carpal tunnel syndrome of right wrist (Chronic) Cervical cancer (Chronic) removed 1985 Chronic diarrhea (Chronic) Chronic fatigue (Chronic) Chronic low back pain (Chronic) Community acquired pneumonia (Inactive) Diarrhea (Resolved) Dizziness (Chronic) Epistaxis (Inactive) Fatigue (Chronic) H/O bladder problems (Chronic) Herpes zoster (Chronic) Re-occuring - On Acyclovir History of kidney problems (Chronic) History of mammogram (Inactive) Hymenoptera reaction (Chronic) sensitivity - no systemic reaction Hyperlipidemia (Chronic) Hypertension (Chronic) Insomnia (Chronic) Joint pain (Chronic) Leg pain (Chronic) Localized enlarged lymph nodes (Chronic) Lumbar back pain (Chronic) Mitral valve disorder (Chronic) Mitral prolapse Mitral valve prolapse (Chronic) Sees Dr. Lawrence - On Metoprolol. Osteoarthrosis (Chronic) Osteoporosis (Chronic) Paresthesia of right arm (Inactive) Perennial allergic rhinitis (Chronic) Pneumonia (Resolved) Pneumothorax (Resolved) Spontaneous Pulmonary fibrosis (Chronic) Right lower lobe pneumonia (Inactive) Seasonal allergic rhinitis (Chronic) Thrush, oral (Chronic) Urinary incontinence (Chronic) Urinary tract infection (Resolved) Vertigo (Resolved) Surgical History (Updated 04/17/20 @ 21:56 by Henri Beckham DO) H/O bladder repair surgery (Inactive ~1999) H/O colonoscopy (Inactive 08/11/13) Dr. Pulido - Internal hemorrhoids. Repeat in 10 yrs. H/O tubal ligation (Inactive) History of appendectomy (Inactive ~1999) History of blepharoplasty (Inactive) Bilateral History of cataract surgery (Chronic) Bilateral History of foot surgery (Inactive) Ankle surgery History of hysterectomy (Inactive) History of laparoscopic cholecystectomy (Chronic ~2017) Dr. Atwood @ [facility]. History of pneumothorax (Chronic) History of tonsillectomy (Inactive) S/P foot surgery, left (Inactive) S/P foot surgery, right (Inactive) Social History Smoking Status: Former smoker Alcohol Intake Frequency: does not drink Exam Narrative Narrative: Narrative: General Limitations: physical limitation (Arrives via ambulance.) General appearance: alert, in no apparent distress, malaise (Moderate) and nontoxic Head Head: atraumatic and normocephalic Eye Eye: Present normal appearance, PERRL and EOMI ENT ENT: Present normal oropharynx, mucous membranes dry and other (Dentures present) Neck Neck: Present trachea midline; Absent lymphadenopathy and thyromegaly Chest Chest: Present symmetric chest wall rise Respiratory Respiratory: Present normal lung sounds bilaterally; Absent respiratory distres s, rales/crackles, wheezes, stridor, accessory muscle use and prolonged expiratory phase Cardiovascular Cardiovascular: Present regular rate, normal rhythm and tachycardia (slightly); Absent systolic murmur and diastolic murmur Adbominal Abdominal: Present soft and tenderness (Slight or trace, subjective, right lower quadrant.); Absent distention, guarding, rebound, rigidity, organomegaly and mass Extremities Extremities: Absent pedal edema, pretibial edema, calf tenderness and cyanosis Back Back: Absent CVA tenderness (R), CVA tenderness (L) and spinous process tenderness Neurological Neurological: Present alert and oriented X3 Expanded Neurological Patient oriented to: Present person, place and time Speech: Present fluid speech CRANIAL NERVES: EOM function (II, III, IV, ): Normal, facial sensation (V): Normal and facial palsy (VII): Normal Motor strength - LUE: 4/5 Motor strength - RUE: 4/5 Motor strength - LLE: 4/5 Motor strength - RLE: 2/5 Coma Scale Eye Opening: Spontaneous Coma Scale Motor Response: Obeys Commands Coma Scale Verbal Response: Oriented Coma Scale Total: 15 Psychiatric Psychiatric: Present normal affect, flat affect and serious; Absent depressed, agitated, anxious and poor eye contact Skin Skin: Present warm and dry; Absent cyanosis and pallor Course Vital Signs Vital signs: Vital Signs Temperature 101.6 F H 04/17/20 21:40 Pulse Rate 105 H 04/17/20 21:40 Respiratory Rate 25 H 04/17/20 21:40 Blood Pressure 143/76 04/17/20 21:40 Pulse Oximetry (%) 90 04/17/20 21:40 Temperature 99.1 F H 04/18/20 08:00 Pulse Rate 88 04/18/20 08:00 Respiratory Rate 22 04/18/20 08:00 Blood Pressure 122/63 04/18/20 08:00 Pulse Oximetry (%) 93 04/18/20 08:00 MDM MDM Narrative Medical decision making narrative: 9:57 PM - progressive weakness now with some right leg flexion weakness. Will do labs and CT scan. 11:50 PM - CT demonstrates "no acute intracranial abnormality. Supratentorial atrophy with small vessel ischemic disease in the periventricular white matter." 12:07 AM - CBC with 12.4 white count but unremarkable H&H. Other labs still pending. POC creatinine was inadvertently done before fluids were given and actually had a creatinine rise to 2.1. It was repeated after fluids and was 1.9. 2:20 AM - spoke with Dr. Hurtado, hospitalist who is willing to accept this patient for admission to [facility], recheck kidney function, give antibiotics for her urinary tract infection. Her most recent temperature 98.5. 2:28 AM - spoke with patient who is agreeable to be admitted. Her CODE STATUS is DNR, treat medically. She actually looks more animated and her facial expressions and movements of her head neck; she is pleasant and appreciative. Lab Data Result diagrams: 04/18/20 05:17 04/18/20 05:17 Labs: Lab Results 04/17/20 04/17/20 04/17/20 Range/Units 22:15 22:15 22:15 WBC 12.4 H (4.50-11.00) K/mcL RBC 4.89 (3.59-5.38) M/mcL Hgb 13.7 (11.2-15.7) g/dL Hct 39.8 (34.1-44.9) % MCV 81.4 (80.0-100.0) fL MCH 28.0 (26.0-34.0) pg MCHC 34.4 (31.0-36.0) g/dL RDW 14.6 H (11.5-14.5) % Plt Count 191 (140-440) K/mcL MPV 9.8 (7.4-10.4) fL Gran % 91.6 H (38.0-78.0) % Lymph % (Auto) 3.9 L (15.5-49.0) % [place] % (Auto) 3.9 (1.0-12.0) % Eos % (Auto) 0.4 (0.0-7.0) % Baso % (Auto) 0.2 (0.0-2.0) % Gran # 11.38 H (1.80-8.00) K/mcL Lymph # (Auto) 0.48 L (1.50-4.80) K/mcL [place] # (Auto) 0.48 (0.10-0.90) K/mcL Eos # (Auto) 0.05 (0.00-0.70) K/mcL Baso # (Auto) 0.02 (0.00-0.30) K/mcL VBG Lactic Acid 2.5 H (0.5-2.0) mmol/L Sodium 131 L (133-145) mmol/L Potassium 3.8 (3.3-5.1) mmol/L Chloride 96 (96-108) mmol/L Carbon Dioxide 15 L (22-30) mmol/L Anion Gap 20.0 H (8-16) BUN 31 H (8-23) mg/dl Creatinine 1.8 H (0.6-1.1) mg/dl POC Creatinine (0.6-1.1) mg/dl GFR Calculation 26 Glucose 154 H (70-105) mg/dL Calcium 9.5 (8.6-10.4) mg/dl Total Bilirubin 0.6 (0.0-1.0) mg/dL AST 31 (0-37) U/l ALT 23 (0-40) U/l Alkaline Phosphatase 83 (39-117) U/L C-Reactive Protein 31.5 H (0.0-0.8) mg/dl Total Protein 7.2 (5.9-8.4) gm/dL Albumin 3.8 (3.2-5.2) gm/dL Globulin 3.4 (2.2-3.7) gm/dL Albumin/Globulin Ratio 1.1 (1.0-2.3) Urine Color Urine Appearance Urine pH (5.0-9.0) Ur Specific [place] (1.000-1.035) Urine Protein (NEG) mg/dL Urine Glucose (UA) (NEG) mg/dL Urine Ketones (NEG) mg/dL Urine Occult Blood (<0.03) mg/dL Urine Nitrate (NEG) Urine Bilirubin (NEG) mg/dL Urine Urobilinogen (NEG) mg/dL Ur Leukocyte Esterase (NEG) /uL Urine RBC (0-1) /hpf Urine WBC (0-4) /hpf Ur Squamous Epith Cells (0-4) /hpf Urine Bacteria (0) /hpf Urine Mucus (0) /hpf Ur Culture Indicated? 04/17/20 04/18/20 04/18/20 Range/Units 23:25 00:50 02:00 WBC (4.50-11.00) K/mcL RBC (3.59-5.38) M/mcL Hgb (11.2-15.7) g/dL Hct (34.1-44.9) % MCV (80.0-100.0) fL MCH (26.0-34.0) pg MCHC (31.0-36.0) g/dL RDW (11.5-14.5) % Plt Count (140-440) K/mcL MPV (7.4-10.4) fL Gran % (38.0-78.0) % Lymph % (Auto) (15.5-49.0) % [place] % (Auto) (1.0-12.0) % Eos % (Auto) (0.0-7.0) % Baso % (Auto) (0.0-2.0) % Gran # (1.80-8.00) K/mcL Lymph # (Auto) (1.50-4.80) K/mcL [place] # (Auto) (0.10-0.90) K/mcL Eos # (Auto) (0.00-0.70) K/mcL Baso # (Auto) (0.00-0.30) K/mcL VBG Lactic Acid (0.5-2.0) mmol/L Sodium (133-145) mmol/L Potassium (3.3-5.1) mmol/L Chloride (96-108) mmol/L Carbon Dioxide (22-30) mmol/L Anion Gap (8-16) BUN (8-23) mg/dl Creatinine (0.6-1.1) mg/dl POC Creatinine 2.1 H 1.9 H (0.6-1.1) mg/dl GFR Calculation Glucose (70-105) mg/dL Calcium (8.6-10.4) mg/dl Total Bilirubin (0.0-1.0) mg/dL AST (0-37) U/l ALT (0-40) U/l Alkaline Phosphatase (39-117) U/L C-Reactive Protein (0.0-0.8) mg/dl Total Protein (5.9-8.4) gm/dL Albumin (3.2-5.2) gm/dL Globulin (2.2-3.7) gm/dL Albumin/Globulin Ratio (1.0-2.3) Urine Color Yellow Urine Appearance Turbid Urine pH 5.0 (5.0-9.0) Ur Specific [place] 1.019 (1.000-1.035) Urine Protein 100 A (NEG) mg/dL Urine Glucose (UA) Negative (NEG) mg/dL Urine Ketones 5/tr A (NEG) mg/dL Urine Occult Blood 0.2 A (<0.03) mg/dL Urine Nitrate Neg (NEG) Urine Bilirubin Neg (NEG) mg/dL Urine Urobilinogen Neg (NEG) mg/dL Ur Leukocyte Esterase 500 A (NEG) /uL Urine RBC 32 H (0-1) /hpf Urine WBC > 182 H (0-4) /hpf Ur Squamous Epith Cells 9 H (0-4) /hpf Urine Bacteria Many A (0) /hpf Urine Mucus Many A (0) /hpf Ur Culture Indicated? No Discharge Plan Patient/Caregiver Discharge Instructions Pt seen by STEAM CLEANING MACHINE OPERATOR/PA only: No Clinical Impression: Acute pyelonephritis Acute renal failure (ARF) Qualifiers: Acute renal failure type: unspecified Qualified Code(s): N17.9 - Acute kidney failure, unspecified Nausea and vomiting Qualifiers: Vomiting type: unspecified Vomiting Intractability: non-intractable Qualified Code(s): R11.2 - Nausea with vomiting, unspecified Patient Disposition: Xfer As Outpt/Obs ([facility]) Condition: Undetermined Discharge Date/Time: 04/18/20 04:03
[2020-04-18 00:23] LABS: Appearance,Urine TURBID; Bacteria,Urine MANY /hpf (0); Bilirubin,Urine NEG (NEG); Color,Urine YELLOW; Culture Indicated,Urine NO; Glucose,Urine (UA) NEGATIVE (NEG); Ketones,Urine 5/TR mg/dL (NEG); Leukocyte Esterase,Urine 500 /uL (NEG); Mucus,Urine MANY /hpf (0); Nitrate,Urine NEG (NEG); Protein,Urine 100 mg/dL (NEG); Specific Gravity,Urine 1.019 (1.000-1.035); Urine Blood 0.2 mg/dL (<0.03); Urine RBC 32 /hpf (0-1); Urine Squamous Epithelial Cell 9 /hpf (0-4); Urine WBC > 182 /hpf (0-4); Urobilinogen,Urine NEG (NEG)
[2020-04-18 00:33] LABS: ALT/SGPT 23 U/l (0-40); AST/SGOT 31 U/l (0-37); Albumin 3.8 gm/dL (3.2-5.2); Albumin/Globulin Ratio 1.1 (1.0-2.3); Alkaline Phosphatase 83 U/L (39-117); Bilirubin,Total 0.6 mg/dL (0.0-1.0); Blood Urea Nitrogen 31 mg/dl (8-23); Calcium 9.5 mg/dl (8.6-10.4); Carbon Dioxide 15 mmol/L (22-30); Chloride 96 mmol/L (96-108); Globulin 3.4 gm/dL (2.2-3.7); Glomerular Filtration Rate 26; Glucose 154 mg/dL (70-105)
[2020-04-18] MEDS ORDERED: 0.9 % SODIUM CHLORIDE 1,000 ML IV ONE (00:40)
[2020-04-18 00:50] LABS: C-Reactive Protein 31.5 mg/dl (0.0-0.8)
[2020-04-18 00:53] LABS: POC Creatinine 2.1 mg/dl (0.6-1.1)
[2020-04-18 02:05] LABS: POC Creatinine 1.9 mg/dl (0.6-1.1)
[2020-04-18] MEDS ORDERED: 0.9 % SODIUM CHLORIDE 1,000 ML IV SCH ×2 (02:30→07:30)
[2020-04-18] MEDS ORDERED: LEVOFLOXACIN 500 MG/100 ML BAG IV ONE (02:35)
[2020-04-18] MEDS: 0.9 % SODIUM CHLORIDE 1,000 ML IV SCH ×5 (02:40→19:54)
[2020-04-18 06:41] LABS: Basophils # (Auto) 0.01 K/mcL (0.00-0.30); Basophils % (Auto) 0.1 % (0.0-2.0); Eosinophils # (Auto) 0 K/mcL (0.00-0.70); Eosinophils % (Auto) 0 % (0.0-7.0); Granulocytes % (Auto) 91.4 % (38.0-78.0); Hematocrit 36.4 % (34.1-44.9); Hemoglobin 12.2 g/dL (11.2-15.7); Lymphocytes # (Auto) 0.39 K/mcL (1.50-4.80); Mean Cell Volume 83.7 fL (80.0-100.0); Mean Corpuscular HGB Conc 33.5 g/dL (31.0-36.0); Mean Platelet Volume 9.9 fL (7.4-10.4); Monocytes # (Auto) 0.27 K/mcL (0.10-0.90); Monocytes % (Auto) 3.5 % (1.0-12.0); Platelet Count 169 K/mcL (140-440); RBC 4.35 M/mcL (3.59-5.38); Red Cell Distribution Width 14.8 % (11.5-14.5); WBC 7.8 K/mcL (4.50-11.00)
[2020-04-18 06:49] LABS: ALT/SGPT 20 U/l (0-40); AST/SGOT 29 U/l (0-37); Bilirubin,Direct < 0.2 mg/dL (0.0-0.3); Bilirubin,Total 0.4 mg/dL (0.0-1.0); Blood Urea Nitrogen 32 mg/dl (8-23); Calcium 8.7 mg/dl (8.6-10.4); Carbon Dioxide 18 mmol/L (22-30); Chloride 100 mmol/L (96-108); Glucose 113 mg/dL (70-105); Lactate Dehydrogenase 214 U/L (94-250); Phosphorous 3.1 mg/dL (2.7-4.5)
[2020-04-18 06:50] LABS: Albumin/Globulin Ratio 0.9 (1.0-2.3); Alkaline Phosphatase 76 U/L (39-117); Globulin 3.3 gm/dL (2.2-3.7); Glomerular Filtration Rate 24; Triglycerides 169 mg/dl (<150)
[2020-04-18] MEDS ORDERED: hydrALAZINE 20 MG/ML VIAL IV PRN (07:09)
[2020-04-18] MEDS ORDERED: ACETAMINOPHEN 650 MG/65 ML BOTTLE IV PRN (07:09)
[2020-04-18] MEDS ORDERED: POLYETHYLENE GLYCOL 3350 17 GM PACKET PO PRN (07:09)
[2020-04-18] MEDS ORDERED: POTASSIUM CHLORIDE 20 MEQ PACKET PO PRN (07:09)
[2020-04-18] MEDS ORDERED: MELATONIN 3 MG TABLET PO PRN (07:09)
[2020-04-18] MEDS ORDERED: BISACODYL 10 MG SUPP.RECT PR PRN (07:09)
[2020-04-18] MEDS ORDERED: METOPROLOL TARTRATE 5 MG/5 ML VIAL IV PRN (07:09)
[2020-04-18] MEDS ORDERED: HYDROcodone/APAP 5/325MG TABLET PO PRN (07:09)
[2020-04-18] MEDS ORDERED: ONDANSETRON 4 MG/2 ML VIAL IV PRN (07:09)
[2020-04-18] MEDS ORDERED: ONDANSETRON 4 MG ODT TABLET SL PRN (07:09)
[2020-04-18] MEDS ORDERED: ACETAMINOPHEN 325 MG TABLET PO PRN (07:09)
[2020-04-18] MEDS ORDERED: MAGNESIUM SULFATE 2 GM/50 ML BAG IV PRN (07:09)
--- NOTE | 2020-04-18 07:15 | Internal Med History&Physical ---
HPI History of Present Illness Patient information: Note initiated : 04/18/20 at 7:14 am Service Date, if different from initiated Date: [] Patient: Cornelia Shi a 79 y/o F admitted on 04/18/20 for known UTI now weakness. Chief Complaint:, Weakness, flank pain, chills History of present illness: Ms. Shi is a 79 year old F with a history of reactive airway disease/hypertension who presents to the ER via EMS with worsening nausea/weakness, fever chills and loss of appetite. Patient symptoms started roughly a week ago with progressive nausea and loss of appetite and symptoms of dysuria. She was seen at primary care physician's office on Thursday where she was diagnosed with UTI and was started on antibiotics. Following 2 doses of antibiotics patient continued to experience symptoms including severe malaise, left-sided flank pain, shakes and associated nausea. She was unable to function or ambulate and subsequently EMS was summoned. Initial work-up was consistent with complicated UTI/acute renal failure and sepsis with a white count of 12.4, creatinine 1.9 and pyuria. Patient was started on antibiotics coverage after cultures were drawn. Subsequently hospital service was consulted. At the time of my evaluation patient is lethargic fatigued but able to answer most the question endorse history as above. She lives with her Niraj and denies exposure to sick contacts. She denies bloody urine, shortness of darion ath, rash but endorses to myalgia and lightheadedness/dizziness. She denies NSAID use Review of systems A 10 point review system was performed and is negative except for ones discussed above PFSH PFSH All Active Problems (Updated 04/19/20 @ 12:32 by Juan F Clifton MD) Frequent UTI (Acute) Left ureteral stone (Acute) Acute renal failure (ARF) (Acute) Nausea and vomiting (Acute) Acute pyelonephritis (Acute) Abdominal pain (Acute) Diarrhea (Acute) Chronic fatigue (Chronic) Urinary incontinence (Chronic) Hypertension (Chronic) Insomnia (Chronic) Hyperlipidemia (Chronic) Mitral valve prolapse (Chronic) Leg pain (Chronic) Osteoporosis (Chronic) Pulmonary fibrosis (Chronic) Localized enlarged lymph nodes (Chronic) Lumbar back pain (Chronic) Thrush, oral (Chronic) Fatigue (Chronic) Chronic low back pain (Chronic) H/O bladder problems (Chronic) History of kidney problems (Chronic) Dizziness (Chronic) Chronic diarrhea (Chronic) Cervical cancer (Chronic) Carpal tunnel syndrome of right wrist (Chronic) Cardiac valve prolapse (Chronic) Joint pain (Chronic) Back pain (Chronic) Arthritis (Chronic) Hymenoptera reaction (Chronic) Perennial allergic rhinitis (Chronic) Seasonal allergic rhinitis (Chronic) Osteoarthrosis (Chronic) Mitral valve disorder (Chronic) Herpes zoster (Chronic) Asthma (Chronic) Medical History Arthritis (Chronic) Asthma (Chronic) Sees Dr. Estes Back pain (Chronic) Breast tenderness (Resolved) Cardiac valve prolapse (Chronic) Carpal tunnel syndrome of right wrist (Chronic) Cervical cancer (Chronic) removed 1985 Chronic diarrhea (Chronic) Chronic fatigue (Chronic) Chronic low back pain (Chronic) Community acquired pneumonia (Inactive) Diarrhea (Resolved) Dizziness (Chronic) Epistaxis (Inactive) Fatigue (Chronic) H/O bladder problems (Chronic) Herpes zoster (Chronic) Re-occuring - On Acyclovir History of kidney problems (Chronic) History of mammogram (Inactive) Hymenoptera reaction (Chronic) sensitivity - no systemic reaction Hyperlipidemia (Chronic) Hypertension (Chronic) Insomnia (Chronic) Joint pain (Chronic) Leg pain (Chronic) Localized enlarged lymph nodes (Chronic) Lumbar back pain (Chronic) Mitral valve disorder (Chronic) Mitral prolapse Mitral valve prolapse (Chronic) Sees Dr. Lawrence - On Metoprolol. Osteoarthrosis (Chronic) Osteoporosis (Chronic) Paresthesia of right arm (Inactive) Perennial allergic rhinitis (Chronic) Pneumonia (Resolved) Pneumothorax (Resolved) Spontaneous Pulmonary fibrosis (Chronic) Right lower lobe pneumonia (Inactive) Seasonal allergic rhinitis (Chronic) Thrush, oral (Chronic) Urinary incontinence (Chronic) Urinary tract infection (Resolved) Vertigo (Resolved) Surgical History H/O bladder repair surgery (Inactive ~1999) H/O colonoscopy (Inactive 08/11/13) Dr. Pulido - Internal hemorrhoids. Repeat in 10 yrs. H/O tubal ligation (Inactive) History of appendectomy (Inactive ~1999) History of blepharoplasty (Inactive) Bilateral History of cataract surgery (Chronic) Bilateral History of foot surgery (Inactive) Ankle surgery History of hysterectomy (Inactive) History of laparoscopic cholecystectomy (Chronic ~2017) Dr. Atwood @ [facility]. History of pneumothorax (Chronic) History of tonsillectomy (Inactive) S/P foot surgery, left (Inactive) S/P foot surgery, right (Inactive) Family History Mother Asthma Sister Diabetes mellitus Osteoarthritis Father Malignant neoplasm Social History marital status: occupational status: retired smoking status: Former smoker alcohol intake frequency: does not drink additional history: 3 Children, 1 SIDS 3 grandchildren 3 great-grandchildren MEDS/ALLERGIES Home Medications and Allergies Home Medications Medication Instructions Recorded Confirmed Type acyclovir 400 mg tablet 400 mg PO QDAY 90 Days #90 tab 03/06/15 04/18/20 Rx L.acidophilus-Bif. animalis 1 tab PO QDAY 06/11/15 04/18/20 History fluticasone furoate 200 1 each INHALATION QDAY each 06/11/15 04/18/20 History mcg-vilanterol 25 mcg/dose inhalation powder multivitamin with minerals 1 tab-cap PO QDAY tab 06/11/15 04/18/20 History olopatadine 0.1 % eye drops 2 drp OPHTHALMIC ONCE PRN ml 06/11/15 04/18/20 History fluticasone furoate 1 puff IH DAILY 10/16/17 04/18/20 History sulfamethoxazole 800 1 tab PO BID #60 tab 04/18/19 04/18/20 Rx mg-trimethoprim 160 mg tablet calcium carbonate 600 mg (1,500 1 tab PO QDAY tab 09/23/19 04/18/20 History mg)-vitamin D3 200 unit tablet montelukast 10 mg tablet 10 mg PO QDAY tab 09/23/19 04/18/20 History ezetimibe 10 mg tablet 10 mg PO QDAY #90 tab 02/06/20 04/18/20 Rx mirtazapine 15 mg tablet See Rx Instructions .ROUTE 02/23/20 04/18/20 Rx .COMPLEX #90 tab umeclidinium 62.5 mcg/actuation 1 inh INHALATION QDAY 02/23/20 04/18/20 History blister powder for inhalation hydrocodone 5 mg-acetaminophen 325 1 tab PO Q8H PRN #30 tab 04/16/20 04/18/20 Rx mg tablet metoprolol succinate 25 mg 25 mg PO HS #30 tab 04/16/20 04/18/20 Rx tablet,extended release 24 hr sulfamethoxazole 800 1 tab PO Q12H #20 tab 04/16/20 04/18/20 Rx mg-trimethoprim 160 mg tablet Allergies Allergy/AdvReac Type Severity Reaction Status Date / Time Penicillins Allergy Mild Rash Verified 04/17/20 21:51 atorvastatin [From Lipitor] AdvReac Mild Body Aches Verified 04/18/20 06:38 ciprofloxacin AdvReac Mild Diarrhea Verified 04/18/20 06:38 pravastatin AdvReac Mild Diarrhea Verified 04/18/20 06:38 rosuvastatin [From Crestor] AdvReac Mild Body Aches Verified 04/18/20 06:38 EXAM Constitutional Vitals: Temp Pulse Resp BP Pulse Ox 98.1 F 88 24 H 125/73 93 04/18/20 04:34 04/18/20 04:34 04/18/20 04:34 04/18/20 04:34 04/18/20 04:34 Anxious and lethargic Head normocephalic Oral cavity moist No ear nose discharge Eye movement symmetrical Neck supple no lymphadenopathy S1-S2 regular Nonlabored breathing Nondistended nontender abdomen Lower extremity no cyanosis clubbing or joint swelling Skin no suspicious lesion Psych no hallucinations Neuro normal higher function DATA Data Completed and Pending Labs: Labs from last 24 hours 04/18/20 04/18/20 04/18/20 05:17 05:17 02:00 WBC 7.8 RBC 4.35 Hgb 12.2 Hct 36.4 MCV 83.7 MCH 28.0 MCHC 33.5 RDW 14.8 H Plt Count 169 MPV 9.9 Gran % 91.4 H Lymph % (Auto) 5.0 L [place] % (Auto) 3.5 Eos % (Auto) 0 Baso % (Auto) 0.1 Gran # 7.08 Lymph # (Auto) 0.39 L [place] # (Auto) 0.27 Eos # (Auto) 0 Baso # (Auto) 0.01 VBG Lactic Acid Sodium 133 Potassium 3.7 Chloride 100 Carbon Dioxide 18 L Anion Gap 15.0 BUN 32 H Creatinine 1.9 H POC Creatinine 1.9 H GFR Calculation 24 Glucose 113 H Uric Acid 5.0 Calcium 8.7 Phosphorus 3.1 Magnesium 2.0 Total Bilirubin 0.4 Direct Bilirubin < 0.2 GGT 33 AST 29 ALT 20 Alkaline Phosphatase 76 Lactate Dehydrogenase 214 C-Reactive Protein Total Protein 6.3 Albumin 3.0 L Globulin 3.3 Albumin/Globulin Ratio 0.9 L Triglycerides 169 H Urine Color Urine Appearance Urine pH Ur Specific [place] Urine Protein Urine Glucose (UA) Urine Ketones Urine Occult Blood Urine Nitrate Urine Bilirubin Urine Urobilinogen Ur Leukocyte Esterase Urine RBC Urine WBC Ur Squamous Epith Cells Urine Bacteria Urine Mucus Ur Culture Indicated? 04/18/20 04/17/20 04/17/20 00:50 23:25 22:15 WBC RBC Hgb Hct MCV MCH MCHC RDW Plt Count MPV Gran % Lymph % (Auto) [place] % (Auto) Eos % (Auto) Baso % (Auto) Gran # Lymph # (Auto) [place] # (Auto) Eos # (Auto) Baso # (Auto) VBG Lactic Acid 2.5 H Sodium Potassium Chloride Carbon Dioxide Anion Gap BUN Creatinine POC Creatinine 2.1 H GFR Calculation Glucose Uric Acid Calcium Phosphorus Magnesium Total Bilirubin Direct Bilirubin GGT AST ALT Alkaline Phosphatase Lactate Dehydrogenase C-Reactive Protein Total Protein Albumin Globulin Albumin/Globulin Ratio Triglycerides Urine Color Yellow Urine Appearance Turbid Urine pH 5.0 Ur Specific [place] 1.019 Urine Protein 100 A Urine Glucose (UA) Negative Urine Ketones 5/tr A Urine Occult Blood 0.2 A Urine Nitrate Neg Urine Bilirubin Neg Urine Urobilinogen Neg Ur Leukocyte Esterase 500 A Urine RBC 32 H Urine WBC > 182 H Ur Squamous Epith Cells 9 H Urine Bacteria Many A Urine Mucus Many A Ur Culture Indicated? No 04/17/20 04/17/20 22:15 22:15 WBC 12.4 H RBC 4.89 Hgb 13.7 Hct 39.8 MCV 81.4 MCH 28.0 MCHC 34.4 RDW 14.6 H Plt Count 191 MPV 9.8 Gran % 91.6 H Lymph % (Auto) 3.9 L [place] % (Auto) 3.9 Eos % (Auto) 0.4 Baso % (Auto) 0.2 Gran # 11.38 H Lymph # (Auto) 0.48 L [place] # (Auto) 0.48 Eos # (Auto) 0.05 Baso # (Auto) 0.02 VBG Lactic Acid Sodium 131 L Potassium 3.8 Chloride 96 Carbon Dioxide 15 L Anion Gap 20.0 H BUN 31 H Creatinine 1.8 H POC Creatinine GFR Calculation 26 Glucose 154 H Uric Acid Calcium 9.5 Phosphorus Magnesium Total Bilirubin 0.6 Direct Bilirubin GGT AST 31 ALT 23 Alkaline Phosphatase 83 Lactate Dehydrogenase C-Reactive Protein 31.5 H Total Protein 7.2 Albumin 3.8 Globulin 3.4 Albumin/Globulin Ratio 1.1 Triglycerides Urine Color Urine Appearance Urine pH Ur Specific [place] Urine Protein Urine Glucose (UA) Urine Ketones Urine Occult Blood Urine Nitrate Urine Bilirubin Urine Urobilinogen Ur Leukocyte Esterase Urine RBC Urine WBC Ur Squamous Epith Cells Urine Bacteria Urine Mucus Ur Culture Indicated? A/P Narrative A/P Narrative: * Complicated UTI likely pyelonephritis. Broad antibiotic coverage. De- escalate based on cultures. Renal ultrasound to rule out obstructive uropathy. * Systemic inflammatory response syndrome secondary to above with elevated white count/tachycardia. Continue antibiotic coverage/management per guidelines. * ARF likely prerenal/sepsis related. Creatinine 1.9. However rule out obstructive uropathy. Continue crystalloids. * Hypertension start metoprolol once systolic improved and sepsis resolved * History of degenerative disease continue hydrocodone acetaminophen * HLD-on home dose ezitimibe * History of COPD on bronchodilators * Prophylaxis heparin Plan * Inpatient admission based on RACHANA/complicated UTI likely pyelonephritis. * Broad antibiotic coverage * Renal imaging * Crystalloids * Pre-existing medical condition management as above * PT OT nutrition support Time Spent With Patient Time: Total time spent is greater than 50% in coordination of care (as documented) at patient's floor/unit and/or counseling patient: QUALITY VTE Deep Vein Thrombosis/Pulmonary Embolism Present on Admission: No
[2020-04-18] MEDS: ONDANSETRON 4 MG/2 ML VIAL IV PRN ×2 (07:26→19:39)
[2020-04-18] MEDS ORDERED: OLOPATADINE EYE OU PRN (07:39)
--- NOTE | 2020-04-18 07:49 | Cat Scan Report ---
History: Increased weakness, right lower extremity weakness, patient tilts to the right, urinary tract infection TECHNIQUE: The brain was imaged without contrast at 2.5 mm intervals. Sagittal and coronal reformats were created. Radiation exposure was limited using dose reduction technology. FINDINGS: There is mild generalized cerebral atrophy, predominantly involving the frontal and temporal lobes. Ill-defined zones of decreased attenuation are present in the centrum semiovale in the frontal and parietal lobes. There is no evidence of an infarct. No hemorrhage or mass effect are present. The ventricles are normal in size. There is no abnormal extra-axial fluid collection. There is mucosal thickening along the park of a few ethmoid air cells bilaterally. The remainder the visualized sinuses are clear. IMPRESSION: Mild age-related degenerative changes with mild atrophy and mild white matter ischemia or degeneration. Low-grade ethmoid sinusitis Interpreted and Authenticated by: Anthony De Dios 04/18/20
[2020-04-18] MEDS ORDERED: LEVOFLOXACIN 250 MG/50 ML BAG IV ONE (09:00)
[2020-04-18] MEDS ORDERED: MULTIVITAMIN WITH MINERALS PO SCH (09:00)
--- NOTE | 2020-04-18 09:56 | Ultrasound Report ---
History: Acute renal failure FINDINGS: The right kidney measures 5.1 x 5.3 x 10.9 cm and the left measures 4.7 x 5.2 x 12.5 cm. Renal cortex is normal in thickness and echogenicity bilaterally area there is no mass, cyst, calculus or hydronephrosis in either kidney. However, the left ureter is dilated. The proximal segment measures 1.3 cm in the mid segment is 8 mm. Distal segment is obscured by bowel gas. The visualized portion of the proximal right ureter is nondilated. Doppler demonstrated flow urine through the right ureter into the bladder. No flow was seen on the left side. The bladder was somewhat distended and contained 472 cc of urine. Along the posterior wall there is a 4 x 11 x 12 mm stone. The patient was unable to void. IMPRESSION: Dilated left ureter with no flow of urine through the left ureter. There is probably a nonvisualized stone in the distal ureter. Normal right kidney Bladder stone Interpreted and Authenticated by: Anthony De Dios 04/18/20
[2020-04-18] MEDS: EZETIMIBE 10 MG TABLET PO SCH (11:07)
[2020-04-18] MEDS: LACTOBACILLUS 1 CAPSULE PO SCH (11:07)
[2020-04-18] MEDS: MONTELUKAST 10 MG TABLET PO SCH (11:07)
[2020-04-18] MEDS: HEPARIN 5,000 UNIT/ML VIAL SQ SCH ×2 (11:08→20:54)
[2020-04-18] MEDS: MULTIVIT,THER IRON,CA,FA & MIN 1 TABLET PO SCH (11:08)
[2020-04-18] MEDS: DOCUSATE SODIUM 100 MG CAPSULE PO SCH ×2 (11:08→20:54)
[2020-04-18] MEDS: Fluticasone Furoate-Vilanterol [Breo Ellipta] Inhaler INH SCH (11:09)
[2020-04-18] MEDS: FLUTICASONE FUROATE INH SCH (11:09)
[2020-04-18] MEDS: UMECLIDINIUM INH SCH (11:09)
--- NOTE | 2020-04-18 12:58 | Cat Scan Report ---
History: Obstructive uropathy with dilated left ureter seen on ultrasound TECHNIQUE: The patient was imaged without oral or intravenous contrast from the diaphragm through the symphysis pubis. Sagittal and coronal reformats were created. The radiation exposure was limited using dose reduction technology. FINDINGS: There are several thick bands of scar or discoid atelectasis in both lung bases. Associated with this is traction bronchiectasis in both lower lobes and right middle lobe. This has progressed significantly since a prior abdomen CT done on 12/29/13.1 the heart is mildly enlarged. Mild pleural thickening is present posteriorly in the left lower thorax. This may be a combination of scar and trace amount pleural fluid. Evaluation of abdominal organs without contrast is somewhat limited. There is a well-circumscribed 2.4 x 3.4 cm cyst beneath the capsule anteriorly in segment eight of the right lobe of the liver. This remains stable since 2013. The remainder the liver is homogeneous. The gallbladder has been removed and there are clips in the gallbladder fossa. The bile ducts are nondilated. The spleen is normal in size and homogeneous. No abnormality seen within the pancreas or adrenals. There is moderate perinephric stranding surrounding the left kidney and mild hydronephrosis. The proximal mid portion left ureter dilated and measure up to 1.2 cm. In the distal portion left ureter there are three stones. The largest is located most inferiorly and measures 5 x 7 mm. Has a density of 673 Hounsfield units. Distal to the stones the left ureter is decompressed. There are no stones within the urinary bladder. There are no stones within the renal parenchyma on either side. No hydronephrosis is present on the right side of the right ureter is normal. The uterus and ovaries have been removed. There is a band of high attenuation material deep in the pelvis extending from the anterior border of the sacrum to the cul-de-sac. The density is similar to that of barium. However, no contrast administered for this exam. This is probably residual contrast from a prior study or material which was placed at the time of the prior hysterectomy. No abscess or free fluid are present in the abdomen or pelvis. The bowel gas pattern is normal. Patient has a stable old mild compression fracture involving superior endplate of L2. L5-S1 disc space is severely narrowed. Scattered plaques are present along the wall of normal caliber abdominal aorta and iliac arteries. IMPRESSION: Three stones in the distal left ureter, largest measuring 5 x 7 mm. This is causing mild hydronephrosis. Moderate pulmonary fibrosis resulting in traction bronchiectasis in both lung bases. Interpreted and Authenticated by: Anthony De Dios 04/18/20
[2020-04-18] MEDS: cefTRIAXone 2 GM in DEXTROSE 5% IN WATER 50 ML IV SCH (13:22)
[2020-04-18] MEDS ORDERED: 0.9 % SODIUM CHLORIDE 500 ML IV ONE (14:45)
[2020-04-18] MEDS: 0.9 % SODIUM CHLORIDE 10 ML SYRINGE IV SCH ×2 (16:16→20:58)
[2020-04-18] MEDS ORDERED: METOPROLOL SUCCINATE 25 MG TAB.XL.24H PO SCH (21:00)
[2020-04-18] MEDS ORDERED: SENNOSIDES/DOCUSATE SODIUM 1 TAB TABLET PO SCH (21:00)
[2020-04-18] MEDS ORDERED: MIRTAZAPINE 15 MG TABLET PO SCH (21:00)
[2020-04-19] MEDS: 0.9 % SODIUM CHLORIDE 10 ML SYRINGE IV SCH ×3 (04:14→21:39)
[2020-04-19] MEDS: ONDANSETRON 4 MG/2 ML VIAL IV PRN (06:13)
[2020-04-19] MEDS: 0.9 % SODIUM CHLORIDE 1,000 ML IV SCH ×3 (06:14→13:52)
[2020-04-19 07:12] LABS: Hematocrit 34.4 % (34.1-44.9); Hemoglobin 11.1 g/dL (11.2-15.7); Mean Cell Volume 86.9 fL (80.0-100.0); Mean Corpuscular HGB Conc 32.3 g/dL (31.0-36.0); Platelet Count 154 K/mcL (140-440); RBC 3.96 M/mcL (3.59-5.38); Red Cell Distribution Width 15.5 % (11.5-14.5)
[2020-04-19 07:26] LABS: Bilirubin,Direct < 0.2 mg/dL (0.0-0.3); Chloride 108 mmol/L (96-108)
[2020-04-19 07:28] LABS: ALT/SGPT 47 U/l (0-40); AST/SGOT 88 U/l (0-37); Albumin 2.4 gm/dL (3.2-5.2); Albumin/Globulin Ratio 0.8 (1.0-2.3); Alkaline Phosphatase 118 U/L (39-117); Bilirubin,Total 0.2 mg/dL (0.0-1.0); Blood Urea Nitrogen 25 mg/dl (8-23); Calcium 8.1 mg/dl (8.6-10.4); Carbon Dioxide 16 mmol/L (22-30); Glomerular Filtration Rate 35; Glucose 81 mg/dL (70-105); Lactate Dehydrogenase 270 U/L (94-250); Phosphorous 1.9 mg/dL (2.7-4.5); Triglycerides 321 mg/dl (<150); Uric Acid 3.7 mg/dL (2.5-8.0)
[2020-04-19] MEDS: DOCUSATE SODIUM 100 MG CAPSULE PO SCH ×2 (09:03→21:32)
[2020-04-19] MEDS: UMECLIDINIUM INH SCH (09:04)
[2020-04-19] MEDS: HEPARIN 5,000 UNIT/ML VIAL SQ SCH ×2 (09:04→21:31)
[2020-04-19] MEDS: Fluticasone Furoate-Vilanterol [Breo Ellipta] Inhaler INH SCH (09:04)
[2020-04-19] MEDS: FLUTICASONE FUROATE INH SCH (09:04)
[2020-04-19] MEDS: LACTOBACILLUS 1 CAPSULE PO SCH (09:04)
[2020-04-19] MEDS: MULTIVIT,THER IRON,CA,FA & MIN 1 TABLET PO SCH (09:04)
[2020-04-19] MEDS: EZETIMIBE 10 MG TABLET PO SCH (09:05)
[2020-04-19] MEDS: MONTELUKAST 10 MG TABLET PO SCH (09:05)
[2020-04-19] MEDS ORDERED: cefTRIAXone 2 GM VIAL ONE (11:51)
[2020-04-19] MEDS: cefTRIAXone 2 GM in DEXTROSE 5% IN WATER 50 ML IV SCH (12:10)
[2020-04-19 12:14] LABS: Anisocytosis 1+ (NONE SEEN); Band Neutrophils % 9 % (0-10); Eosinophils % (Manual) 1 % (0-7); Lymphocytes % 6 % (15-49); Monocytes % (Manual) 3 % (1-12); Platelet Estimate NORMAL (NORMAL); RBC Morphology ABNORM (NORMAL); Segmented Neutrophils % 81 % (38-78)
[2020-04-19] MEDS ORDERED: fentaNYL 100 MCG/2 ML VIAL IV ONE (12:24)
[2020-04-19] MEDS ORDERED: ONDANSETRON 4 MG/2 ML VIAL ONE (12:24)
[2020-04-19] MEDS ORDERED: DEXAMETHASONE 10 MG/ML VIAL ONE (12:24)
[2020-04-19] MEDS ORDERED: GLYCOPYRROLATE 0.2 MG/ML VIAL IV ONE (12:24)
[2020-04-19] MEDS ORDERED: LIDOCAINE HCL/PF 100 MG/5 ML SYRINGE IV ONE (12:24)
[2020-04-19] MEDS ORDERED: MIDAZOLAM 2 MG/2 ML VIAL ONE (12:24)
[2020-04-19] MEDS ORDERED: KETAMINE 10 MG/ML ML ONE (12:24)
[2020-04-19] MEDS ORDERED: PROPOFOL 200 MG/20 ML VIAL IV ONE (12:24)
--- NOTE | 2020-04-19 12:27 | Internal Medicine Consult Note ---
HPI Data of Consult Primary Care Provider: Aditi Atwood Consult Narrative History of present illness: 79 y.o. female with left flank pain found to have three distal ureteral stones and no renal stones. no previous issues with renal colic or stones. She had mild leucocytosis which resolved with hydration and antibiotics. her pain and nausea remained and plan is for intervention. Previous bladder lift. denies recurrent prolapse She does have stress incontinence, rare urge incontinence. Issues with frequent UTI. she only used her vaginal estrogen for 4 weeks and then stopped. no hematuria, some dysruia and suprapubic pressure and nausea currently. no fevers or chills. cc:: CC: Keenan Scott Constitutional Constitutional: Present anorexia and fatigue; Absent chills EENT Eyes: Absent blurry vision, itchy eyes and loss of vision Nose, mouth and throat: Absent change in voice Cardiovascular Cardiovascular: Absent chest pain with activity, dyspnea and dyspnea on exertion Respiratory Respiratory: Absent cough, dyspnea on exertion and wheezing Gastrointestinal Gastrointestinal: Present abdominal pain and nausea; Absent vomiting Genitourinary Genitourinary: Present as per HPI Musculoskeletal Musculoskeletal: Absent muscle weakness, numbness and tingling Integumentary Integumentary: Absent changing lesions, rash and jaundice Neurological Neurological: Absent memory loss, sensory deficit and tingling Psychiatric Psychiatric: Absent behavioral changes, confusion and difficulty concentrating Endocrine Endocrine: Absent polydipsia, polyphagia and polyuria Hematologic/Lymphatic Hematologic/Lymphatic: Present easy bruising; Absent easy bleeding and lymphadenopathy Allergic/Immunologic Allergic/Immunologic: Absent itchy eyes, uticaria and wheezing PFSH PFSH All Active Problems (Updated 04/19/20 @ 12:32 by Juan F Clifton MD) Frequent UTI (Acute) Left ureteral stone (Acute) Acute renal failure (ARF) (Acute) Nausea and vomiting (Acute) Acute pyelonephritis (Acute) Abdominal pain (Acute) Diarrhea (Acute) Chronic fatigue (Chronic) Urinary incontinence (Chronic) Hypertension (Chronic) Insomnia (Chronic) Hyperlipidemia (Chronic) Mitral valve prolapse (Chronic) Leg pain (Chronic) Osteoporosis (Chronic) Pulmonary fibrosis (Chronic) Localized enlarged lymph nodes (Chronic) Lumbar back pain (Chronic) Thrush, oral (Chronic) Fatigue (Chronic) Chronic low back pain (Chronic) H/O bladder problems (Chronic) History of kidney problems (Chronic) Dizziness (Chronic) Chronic diarrhea (Chronic) Cervical cancer (Chronic) Carpal tunnel syndrome of right wrist (Chronic) Cardiac valve prolapse (Chronic) Joint pain (Chronic) Back pain (Chronic) Arthritis (Chronic) Hymenoptera reaction (Chronic) Perennial allergic rhinitis (Chronic) Seasonal allergic rhinitis (Chronic) Osteoarthrosis (Chronic) Mitral valve disorder (Chronic) Herpes zoster (Chronic) Asthma (Chronic) Medical History Arthritis (Chronic) Asthma (Chronic) Sees Dr. Estes Back pain (Chronic) Breast tenderness (Resolved) Cardiac valve prolapse (Chronic) Carpal tunnel syndrome of right wrist (Chronic) Cervical cancer (Chronic) removed 1985 Chronic diarrhea (Chronic) Chronic fatigue (Chronic) Chronic low back pain (Chronic) Community acquired pneumonia (Inactive) Diarrhea (Resolved) Dizziness (Chronic) Epistaxis (Inactive) Fatigue (Chronic) H/O bladder problems (Chronic) Herpes zoster (Chronic) Re-occuring - On Acyclovir History of kidney problems (Chronic) History of mammogram (Inactive) Hymenoptera reaction (Chronic) sensitivity - no systemic reaction Hyperlipidemia (Chronic) Hypertension (Chronic) Insomnia (Chronic) Joint pain (Chronic) Leg pain (Chronic) Localized enlarged lymph nodes (Chronic) Lumbar back pain (Chronic) Mitral valve disorder (Chronic) Mitral prolapse Mitral valve prolapse (Chronic) Sees Dr. Lawrence - On Metoprolol. Osteoarthrosis (Chronic) Osteoporosis (Chronic) Paresthesia of right arm (Inactive) Perennial allergic rhinitis (Chronic) Pneumonia (Resolved) Pneumothorax (Resolved) Spontaneous Pulmonary fibrosis (Chronic) Right lower lobe pneumonia (Inactive) Seasonal allergic rhinitis (Chronic) Thrush, oral (Chronic) Urinary incontinence (Chronic) Urinary tract infection (Resolved) Vertigo (Resolved) Surgical History H/O bladder repair surgery (Inactive ~1999) H/O colonoscopy (Inactive 08/11/13) Dr. Pulido - Internal hemorrhoids. Repeat in 10 yrs. H/O tubal ligation (Inactive) History of appendectomy (Inactive ~1999) History of blepharoplasty (Inactive) Bilateral History of cataract surgery (Chronic) Bilateral History of foot surgery (Inactive) Ankle surgery History of hysterectomy (Inactive) History of laparoscopic cholecystectomy (Chronic ~2017) Dr. Atwood @ [facility]. History of pneumothorax (Chronic) History of tonsillectomy (Inactive) S/P foot surgery, left (Inactive) S/P foot surgery, right (Inactive) Family History Mother Asthma Sister Diabetes mellitus Osteoarthritis Father Malignant neoplasm Social History marital status: occupational status: retired smoking status: Former smoker alcohol intake frequency: does not drink additional history: 3 Children, 1 SIDS 3 grandchildren 3 great-grandchildren MEDS/ALLERGIES Home Medications and Allergies Home Medications Medication Instructions Recorded Confirmed Type acyclovir 400 mg tablet 400 mg PO QDAY 90 Days #90 tab 03/06/15 04/18/20 Rx L.acidophilus-Bif. animalis 1 tab PO QDAY 06/11/15 04/18/20 History fluticasone furoate 200 1 each INHALATION QDAY each 06/11/15 04/18/20 History mcg-vilanterol 25 mcg/dose inhalation powder multivitamin with minerals 1 tab-cap PO QDAY tab 06/11/15 04/18/20 History olopatadine 0.1 % eye drops 2 drp OPHTHALMIC ONCE PRN ml 06/11/15 04/18/20 History fluticasone furoate 1 puff IH DAILY 10/16/17 04/18/20 History sulfamethoxazole 800 1 tab PO BID #60 tab 04/18/19 04/18/20 Rx mg-trimethoprim 160 mg tablet calcium carbonate 600 mg (1,500 1 tab PO QDAY tab 09/23/19 04/18/20 History mg)-vitamin D3 200 unit tablet montelukast 10 mg tablet 10 mg PO QDAY tab 09/23/19 04/18/20 History ezetimibe 10 mg tablet 10 mg PO QDAY #90 tab 02/06/20 04/18/20 Rx mirtazapine 15 mg tablet See Rx Instructions .ROUTE 02/23/20 04/18/20 Rx .COMPLEX #90 tab umeclidinium 62.5 mcg/actuation 1 inh INHALATION QDAY 02/23/20 04/18/20 History blister powder for inhalation hydrocodone 5 mg-acetaminophen 325 1 tab PO Q8H PRN #30 tab 09/14/20 09/16/20 Rx mg tablet metoprolol succinate 25 mg 25 mg PO HS #30 tab 04/16/20 04/18/20 Rx tablet,extended release 24 hr sulfamethoxazole 800 1 tab PO Q12H #20 tab 04/16/20 04/18/20 Rx mg-trimethoprim 160 mg tablet Allergies Allergy/AdvReac Type Severity Reaction Status Date / Time Penicillins Allergy Mild Rash Verified 04/17/20 21:51 atorvastatin [From Lipitor] AdvReac Mild Body Aches Verified 04/18/20 06:38 ciprofloxacin AdvReac Mild Diarrhea Verified 04/18/20 06:38 pravastatin AdvReac Mild Diarrhea Verified 04/18/20 06:38 rosuvastatin [From Crestor] AdvReac Mild Body Aches Verified 04/18/20 06:38 EXAM Constitutional Vitals: Temp Pulse Resp BP Pulse Ox 98.8 F 82 16 146/71 93 04/19/20 08:00 04/19/20 08:00 04/19/20 08:00 04/19/20 08:00 04/19/20 08:00 General appearance: average body habitus, cooperative and mild distress Head Head exam: Present atraumatic, normal inspection and normocephalic Eye Eye exam: Present EOMI; Absent conjunctival injection and scleral icterus Respiratory Respiratory exam: Present normal respiratory exam; Absent respiratory distress, stridor and wheezes Cardiovascular Cardiovascular exam: Present normal rate and rhythm; Absent bradycardia and tachycardia GI/Abdominal GI/Abdominal exam: Present soft; Absent distended, guarding and rebound Additional comments: no CVA tenderness Extremities Exam Extremities exam: Present normal capillary refill Neurological Exam Neurological exam: Present alert and oriented X3 Psychiatric Psychiatric exam: Present normal affect and normal mood; Absent agitated and anxious DATA Data Completed and Pending Labs: Labs from last 24 hours 04/19/20 04/19/20 04/19/20 09:50 05:25 05:25 WBC 5.0 RBC 3.96 Hgb 11.1 L Hct 34.4 MCV 86.9 MCH 28.0 MCHC 32.3 RDW 15.5 H Plt Count 154 MPV 10.0 Total Counted 100 Seg Neutrophils % 81 H Band Neutrophils % 9 Lymphocytes % 6 L Monocytes % (Manual) 3 Eosinophils % (Manual) 1 Platelet Estimate Normal RBC Morphology Abnorm A Anisocytosis 1+ A Sodium 136 Potassium 3.7 Chloride 108 Carbon Dioxide 16 L Anion Gap 12.0 BUN 25 H Creatinine 1.4 H GFR Calculation 35 Glucose 81 Uric Acid 3.7 Calcium 8.1 L Phosphorus 1.9 L Magnesium 1.8 Total Bilirubin 0.2 Direct Bilirubin < 0.2 GGT 74 H AST 88 H ALT 47 H Alkaline Phosphatase 118 H Lactate Dehydrogenase 270 H Total Protein 5.4 L Albumin 2.4 L Globulin 3.0 Albumin/Globulin Ratio 0.8 L Triglycerides 321 H SARS-CoV-2 (PCR) Covid-19 negative Preliminary micro results at discharge 04/18/20 08:01 Blood Culture - Preliminary Blood 04/18/20 08:20 Blood Culture - Preliminary Blood A/P Assessment and plan (1) Urinary incontinence: Status: Chronic Comment: -she has had previous prolapse repair and has persistent stress incontinence -evaluate once stones addressed and stent removed with likely urodynamic study (2) Left ureteral stone: Status: Acute Comment: -three stones in the distal left ureter -she has no signs infection and her WBC has normalised -plan for ureteroscopy and laser lithotripsy and stent -procedure, risks, benefits and alternatives gone over an informed consent o btained (3) Frequent UTI: Status: Acute Comment: -she only used her transvaginal estrogen for 4 weeks and it was expensive -it takes 8 weeks to be effective and she has to keep using it exterminator helper -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
[2020-04-19] MEDS ORDERED: BENZOCAINE/MENTHOL 1 LOZENGE PO PRN ×2 (12:52→13:40)
[2020-04-19] MEDS ORDERED: ACETAMINOPHEN 650 MG/65 ML BOTTLE IV ONE (12:52)
[2020-04-19] MEDS ORDERED: ONDANSETRON 4 MG/2 ML VIAL IV PRN ×4 (12:52→13:40)
[2020-04-19] MEDS ORDERED: IPRATROPIUM/ALBUTEROL 3 ML AMPUL.NEB NEB PRN ×2 (12:52→13:40)
[2020-04-19] MEDS ORDERED: MEPERIDINE 25 MG/ML SYRINGE IV PRN ×2 (12:52→13:40)
[2020-04-19] MEDS ORDERED: fentaNYL 100 MCG/2 ML VIAL IV PRN (12:52)
[2020-04-19] MEDS ORDERED: IOVERSOL 100 ML SYRINGE IJ ONE (13:00)
[2020-04-19] MEDS ORDERED: LACTATED RINGERS 1,000 ML IV SCH ×2 (13:00→13:40)
--- NOTE | 2020-04-19 13:14 | Internal Med Progress Note ---
SUBJECTIVE Subjective Patient information: Note initiated : 04/19/20 at 1:08 pm Service Date, if different from initiated Date: [] Patient: Cornelia Shi a 79 y/o F admitted on 04/18/20 for known UTI now weakness. Chief Complaint: History of present illness: Ms. Shi is a 79 year old F with a history of reactive airway disease/hypertension who presents to the ER via EMS with worsening nausea/weakness, fever chills and loss of appetite. Patient symptoms started roughly a week ago with progressive nausea and loss of appetite and symptoms of dysuria. She was seen at primary care physician's office on Thursday where she was diagnosed with UTI and was started on antibiotics. Following 2 doses of antibiotics patient continued to experience symptoms including severe malaise, left-sided flank pain, shakes and associated nausea. She was unable to function or ambulate and subsequently EMS was summoned. Initial work-up was consistent with complicated UTI/acute renal failure and sepsis with a white count of 12.4, creatinine 1.9 and pyuria. Patient was started on antibiotics coverage after cultures were drawn. Subsequently hospital service was consulted. At the time of my evaluation patient is lethargic fatigued but able to answer most the question endorse history as above. She lives with her Niraj and denies exposure to sick contacts. She denies bloody urine, shortness of breath, rash but endorses to myalgia and lightheadedness/dizziness. She denies NSAID use 04/19-patient doing well. Responding to antibiotics. Renal imaging reveals left-sided hydronephrosis/renal stone with obstructive uropathy. Urology consulted and will undergo stent/lithotripsy today. Remained N.p.o. after midnight. On antibiotic coverage. White count normal down from 13.9-5. Creatinine improved to 1.4, phosphorus 1.9 start replacement. Elevated LFTs, continue monitoring. Possibly cephalosporin related. Cultures negative so far. Review postop Constitutional Vitals: Vital Signs Temp Pulse Resp BP Pulse Ox 98.8 F 82 16 146/71 93 04/19/20 08:00 04/19/20 08:00 04/19/20 08:00 04/19/20 08:00 04/19/20 08:00 Period Temp Pulse Resp BP Sys/Rodriguez Pulse Ox Last 24 Hr 98.3 F-99.3 F 75-82 16-24 135-146/71-75 90-93 Intake and Output 04/18/20 04/19/20 04/19/20 21:59 05:59 13:59 Intake Total 3349 1000 Output Total 401 401 801 Balance 294 599 -801 Weight 60.555 kg Alert oriented No anxiety Minimal discomfort Nonlabored breathing Intake & Output: Intake & Output 04/18/20 04/19/20 04/19/20 21:59 05:59 13:59 Intake Total 3349 1000 Output Total 401 401 801 Balance 2943 599 -801 Weight 60.555 kg Intake: IV 3349 1000 Sodium Chloride 0.9% 1,000 ml @ 2734 1000 100 mls/hr IV .Q10H [facility] Rx#: [id number] Sodium Chloride 0.9% 500 ml @ 500 Wide Open IV [facility] Rx#: [id number] Rocephin 2 gm In Dextrose 5% in 50 Water 50 ml @ 100 mls/hr IV Q24H [facility] Rx#:[id number] Oral 0 Output: Void Amount 400 400 800 # of times incontinent of urine 1 1 1 Other: Urine Appearance Clear Clear Clear Urine Color Bright Yellow Bright Yellow Pale Urine Odor Normal Normal Stool Size Small Moderate Stool Color Brown Brown Stool Consistency Liquid Loose # Voids 1 # Bowel Movements 1 2 # of times incontinent of 1 Bowels OBJ DATA Labs CBC & Chem 7: 04/19/20 05:25 04/19/20 05:25 Labs: Abnormal Lab Results 04/19/20 04/19/20 04/18/20 05:25 05:25 05:17 WBC Hgb 11.1 L RDW 15.5 H Gran % Lymph % (Auto) Gran # Lymph # (Auto) Seg Neutrophils % 81 H Lymphocytes % 6 L RBC Morphology Abnorm A Anisocytosis 1+ A VBG Lactic Acid Sodium Carbon Dioxide 16 L 18 L Anion Gap BUN 25 H 32 H Creatinine 1.4 H 1.9 H POC Creatinine Glucose 113 H Calcium 8.1 L Phosphorus 1.9 L GGT 74 H AST 88 H ALT 47 H Alkaline Phosphatase 118 H Lactate Dehydrogenase 270 H C-Reactive Protein Total Protein 5.4 L Albumin 2.4 L 3.0 L Albumin/Globulin Ratio 0.8 L 0.9 L Triglycerides 321 H 169 H Urine Protein Urine Ketones Urine Occult Blood Ur Leukocyte Esterase Urine RBC Urine WBC Ur Squamous Epith Cells Urine Bacteria Urine Mucus 04/18/20 04/18/20 04/18/20 05:17 02:00 00:50 WBC Hgb RDW 14.8 H Gran % 91.4 H Lymph % (Auto) 5.0 L Gran # Lymph # (Auto) 0.39 L Seg Neutrophils % Lymphocytes % RBC Morphology Anisocytosis VBG Lactic Acid Sodium Carbon Dioxide Anion Gap BUN Creatinine POC Creatinine 1.9 H 2.1 H Glucose Calcium Phosphorus GGT AST ALT Alkaline Phosphatase Lactate Dehydrogenase C-Reactive Protein Total Protein Albumin Albumin/Globulin Ratio Triglycerides Urine Protein Urine Ketones Urine Occult Blood Ur Leukocyte Esterase Urine RBC Urine WBC Ur Squamous Epith Cells Urine Bacteria Urine Mucus 04/17/20 04/17/20 04/17/20 23:25 22:15 22:15 WBC Hgb RDW Gran % Lymph % (Auto) Gran # Lymph # (Auto) Seg Neutrophils % Lymphocytes % RBC Morphology Anisocytosis VBG Lactic Acid 2.5 H Sodium 131 L Carbon Dioxide 15 L Anion Gap 20.0 H BUN 31 H Creatinine 1.8 H POC Creatinine Glucose 154 H Calcium Phosphorus GGT AST ALT Alkaline Phosphatase Lactate Dehydrogenase C-Reactive Protein 31.5 H Total Protein Albumin Albumin/Globulin Ratio Triglycerides Urine Protein 100 A Urine Ketones 5/tr A Urine Occult Blood 0.2 A Ur Leukocyte Esterase 500 A Urine RBC 32 H Urine WBC > 182 H Ur Squamous Epith Cells 9 H Urine Bacteria Many A Urine Mucus Many A 04/17/20 22:15 WBC 12.4 H Hgb RDW 14.6 H Gran % 91.6 H Lymph % (Auto) 3.9 L Gran # 11.38 H Lymph # (Auto) 0.48 L Seg Neutrophils % Lymphocytes % RBC Morphology Anisocytosis VBG Lactic Acid Sodium Carbon Dioxide Anion Gap BUN Creatinine POC Creatinine Glucose Calcium Phosphorus GGT AST ALT Alkaline Phosphatase Lactate Dehydrogenase C-Reactive Protein Total Protein Albumin Albumin/Globulin Ratio Triglycerides Urine Protein Urine Ketones Urine Occult Blood Ur Leukocyte Esterase Urine RBC Urine WBC Ur Squamous Epith Cells Urine Bacteria Urine Mucus Meds: Medications Acetaminophen (Tylenol) 650 mg PO Q4-6HP PRN; Protocol PRN Reason: Per Pain Protocol/Fever > 101 Hydrocodone Bitart/Acetaminophen ([place]kin 5/325mg) 1 tab PO Q8HP PRN; Protocol PRN Reason: pain Albuterol/Ipratropium (Duoneb) 3 ml NEB ONCE PRN PRN Reason: Wheezing Stop: 04/19/20 14:53 Bisacodyl (Dulcolax) 10 mg [place] Q2-3DAYS PRN PRN Reason: Constipation Docusate Sodium (Colace) 100 mg PO BID [facility] Last Admin: 04/19/20 09:03 Dose: Not Given Documented by: Ezetimibe (Zetia) 10 mg PO QDAY [facility] Last Admin: 04/19/20 09:05 Dose: Not Given Documented by: Fentanyl (Sublimaze) 25 mcg IV Q2M PRN PRN Reason: Pain Stop: 04/19/20 14:53 Heparin Sodium (Porcine) (Heparin) 5,000 unit SQ Q12 [facility] Last Admin: 04/19/20 09:04 Dose: Not Given Documented by: Hydralazine HCl (Apresoline) 10 mg IV Q4-6HP PRN PRN Reason: Hypertension Acetaminophen (Ofirmev) 650 mg in 65 mls @ 130 mls/hr IV Q6HP PRN; Protocol PRN Reason: Per Pain Protocol/Fever > 101 Last Infusion: 04/18/20 20:14 Dose: Infused Documented by: Magnesium Sulfate (Magnesium Sulfate) 2 gm in 50 mls @ 50 mls/hr IV UD PRN PRN Reason: MG = or < 1.7 Ceftriaxone Sodium 2 gm/ (Dextrose) 50 mls @ 100 mls/hr IV Q24H [facility]; Protocol Last Admin: 04/19/20 12:10 Dose: 100 mls/hr Documented by: Levofloxacin (Levaquin) 750 mg in 150 mls @ 100 mls/hr IV Q48H [facility]; Protocol Sodium Chloride (Sodium Chloride 0.9%) 1,000 mls @ 0 mls/hr IV BOLUS [facility] Last Admin: 04/19/20 09:03 Dose: Not Given Documented by: Sodium Chloride (Sodium Chloride 0.9%) 1,000 mls @ 100 mls/hr IV .Q10H [facility] Stop: 04/19/20 21:14 Last Admin: 04/19/20 06:14 Dose: 100 mls/hr Documented by: Acetaminophen (Ofirmev) 650 mg in 65 mls @ 200 mls/hr IV ONCE ONE Stop: 04/19/20 13:11 Lactated Ringer's (Lactated Ringers) 1,000 mls @ 20 mls/hr IV .Q24H [facility] Stop: 04/19/20 14:54 Iron Carb/Multivit/Lung Splitter/Folic Acid (Multivitamin W/Minerals) 1 tab PO DAILY [facility] Last Admin: 04/19/20 09:04 Dose: Not Given Documented by: Lactobacillus Rhamnosus (Culturelle) 1 cap PO QDAY [facility] Last Admin: 04/19/20 09:04 Dose: Not Given Documented by: Melatonin (Melatonin 3mg Tablet) 3 mg PO HSP PRN PRN Reason: Insomnia Meperidine HCl (Demerol) 12.5 mg IV Q5M PRN PRN Reason: Shivering Stop: 04/19/20 14:53 Metoprolol Succinate (Toprol Xl) 25 mg PO [facility] Last Admin: 04/18/20 20:54 Dose: 25 mg Documented by: Metoprolol Tartrate (Lopressor) 5 mg IV Q5M PRN PRN Reason: Heart Rate > 140 bpm Mirtazapine (Remeron) 15 mg PO [facility] Last Admin: 04/18/20 20:54 Dose: 15 mg Documented by: Montelukast Sodium (Singular) 10 mg PO QDAY [facility] Last Admin: 04/19/20 09:05 Dose: Not Given Documented by: Ondansetron HCl (Zofran) 4 mg IV Q4HP PRN PRN Reason: Nausea And Vomiting Last Admin: 04/19/20 06:13 Dose: 4 mg Documented by: Ondansetron HCl (Zofran Odt) 4 mg SL Q4-6HP PRN; Protocol PRN Reason: Nausea And Vomiting Ondansetron HCl (Zofran) 4 mg IV Q4-6HP PRN; Protocol PRN Reason: Nausea And Vomiting Ondansetron HCl (Zofran) 4 mg IV ONCE PRN PRN Reason: Nausea And Vomiting Stop: 04/19/20 14:53 Fluticasone Furoate (Inhaler) 1 dose INH DAILY [facility] Last Admin: 04/19/20 09:04 Dose: Not Given Documented by: Fluticasone Furoate- Vilanterol [Breo Ellipta] Inhaler 1 dose INH QDAY [facility] Last Admin: 04/19/20 09:04 Dose: Not Given Documented by: Olopatadine Eye (Drops) 2 dose OU DAILYP PRN PRN Reason: Dry Eye(S) Umeclidinium [ Incruse Ellipta] Inhaler 1 dose INH QDAY [facility] Last Admin: 04/19/20 09:04 Dose: Not Given Documented by: Polyethylene Glycol (Miralax) 17 gm PO DAILYP PRN PRN Reason: Constipation Potassium Chloride (Klor-Con) 40 meq PO DAILYP PRN PRN Reason: K+ < 3.5 Senna/Docusate Sodium (Senna Plus Tablet) 1 tab PO HS [facility] Last Admin: 04/18/20 20:54 Dose: 1 tab Documented by: Sodium Chloride (Saline Flush) 10 ml IV Q8 [facility] Last Admin: 04/19/20 04:14 Dose: Not Given Documented by: Throat Lozenges (Cepacol) 1 lozenge PO PRN PRN PRN Reason: Sore Throat Stop: 04/19/20 14:53 A/P Assessment and plan (1) Urinary incontinence: Status: Chronic (2) Left ureteral stone: Status: Acute (3) Frequent UTI: Status: Acute Narrative A/P Narrative: * Complicated UTI - Secondary to obstructive uropathy. On antibiotic coverage. Clinically improving. * Sepsis secondary to above with elevated white count/tachycardia. White count down from 13-9.5. * Obstructive uropathy-will undergo stenting/epilepsy. Urology on board * Elevated LFTs possibly cephalosporin mediated. Will change antibiotic if persistent elevation and no other alternate etiology * ARF likely prerenal/sepsis related. Creatinine improving down from 1.9-1.5 * Hypertension on home dose metoprolol with holding parameters * History of degenerative disease continue hydrocodone acetaminophen * HLD-on home dose ezitimibe * History of COPD on bronchodilators * Prophylaxis heparin Plan * Review postop * Continue antibiotic coverage * Pre-existing medical condition management as above * Discharge planning Time Spent With Patient Time: Total time spent is greater than 50% in coordination of care (as documented) at patient's floor/unit and/or counseling patient: QUALITY VTE Deep Vein Thrombosis/Pulmonary Embolism Present on Admission: No
--- NOTE | 2020-04-19 13:27 | Brief Operative Note ---
Brief Operative Note Date of procedure: 04/19/20 Pre-op diagnosis: left ureteral stones Post-op diagnosis: other (ureteral stricture, left ureteral stones) Grafts/Implants: Yes (6F 24 cm ureteral stent) Anesthesia: GETA Complications: none Complications Description: unable to perform laser lithotripsy given distal ureteral stricture, stent place to allow to dilate Surgeon: Juan F Clifton Specimens Removed/Pathology: none sent Condition: stable Disposition: PACU
--- NOTE | 2020-04-19 13:36 | Operative Note ---
Operative Note Operative Note: Date of procedure: 04/19/20 Pre-op diagnosis: left ureteral stones Post-op diagnosis: other (ureteral stricture, left ureteral stones) Grafts/Implants: Yes (6F 24 cm ureteral stent) Anesthesia: GETA Complications: none Complications Description: unable to perform laser lithotripsy given distal ureteral stricture, stent place to allow to dilate Surgeon: Juan F Clifton Specimens Removed/Pathology: none sent Condition: stable Disposition: PACU Informed consent was stained and preoperative antibiotics were given. Patient was taken to the operative suite placed on the table in the supine position. Adequate anesthesia was initiated. Patient was placed on the dorsolithotomy position and prepped and draped in usual sterile fashion. We began the procedure with a 23 [place]ian cystoscope which was entered into the urethra bladder. The left ureteral orifice was seen but was very difficult cold to cannulate given her previous prolapse repair. A semirigid ureteroscope was then utilized instead and we were able to finally locate the ureter and transverse a wire up the ureter under direct vision. We attempted to advance the semirigid ureteroscope up the ureter but only able to go a centimeter before a dense ureteral stricture was encountered. We attempted to dilate the stricture with the semirigid ureteroscope were unable to pass such. The scope was removed and the wire was backloaded over the cystoscope and the decision was made to assess stent to allow the stricture to dilate and then come back for a staged approach to remove her stones. The stent was unable to be passed as the stricture was too dense and would not allow the 6 Tunisian stent to pass. The hospital does not have any stent smaller than 6 Tunisian. There were no ureteral dilators available. We reintroduced semirigid ureteroscope and under direct vision were able to pass a second wire through the dense ureteral stricture. With the second wire opening the stricture a little bit we were then able to pass a stent successfully through the strictured area up into the renal pelvis. The stent was seen to coil adequately in the renal pelvis under fluoroscopy and in the bladder under direct vision with excellent drainage of urine down the stent. The bladder was drained. Patient tolerated the procedure went to recovery in excellent condition Disposition We will allow the ureteral stricture to dilate for 2 weeks and then plan for definitive ureteroscopy and laser lithotripsy to remove her ureteral stones
[2020-04-19] MEDS ORDERED: ACETAMINOPHEN 650 MG/65 ML BOTTLE IV PRN (13:40)
[2020-04-19] MEDS ORDERED: METOPROLOL TARTRATE 5 MG/5 ML VIAL IV PRN (13:40)
[2020-04-19] MEDS ORDERED: OLOPATADINE EYE OU PRN (13:40)
[2020-04-19] MEDS ORDERED: POTASSIUM CHLORIDE 20 MEQ PACKET PO PRN (13:40)
[2020-04-19] MEDS ORDERED: HYDROcodone/APAP 5/325MG TABLET PO PRN (13:40)
[2020-04-19] MEDS ORDERED: ONDANSETRON 4 MG ODT TABLET SL PRN (13:40)
[2020-04-19] MEDS ORDERED: MAGNESIUM SULFATE 2 GM/50 ML BAG IV PRN (13:40)
[2020-04-19] MEDS ORDERED: BISACODYL 10 MG SUPP.RECT PR PRN (13:40)
[2020-04-19] MEDS ORDERED: hydrALAZINE 20 MG/ML VIAL IV PRN (13:40)
[2020-04-19] MEDS ORDERED: 0.9 % SODIUM CHLORIDE 1,000 ML IV SCH (13:40)
[2020-04-19] MEDS ORDERED: POLYETHYLENE GLYCOL 3350 17 GM PACKET PO PRN (13:40)
--- NOTE | 2020-04-19 15:15 | XRay Report ---
HISTORY: FINDINGS: IMPRESSION: 1.3 minutes of fluoroscopy time was used. Interpreted and Authenticated by: Anthony De Dios 04/19/20
--- NOTE | 2020-04-19 19:49 | Event Note ---
Event Note Event Note: Patient see post operatively and doing well. her pain has resolved and she tolerated her diet. Went over the ureteral stricture we found and only stent was placed. Will plan for definitive stone surgery in 1-2 weeks after the stricture has time to dilate Disposition: -home on antibiotics total 7 days -pyridium 100 mg Q 8 hrs prn stent pain -follow up in urology clinic next week to set up further surgery
[2020-04-19] MEDS: METOPROLOL SUCCINATE 25 MG TAB.XL.24H PO SCH (21:31)
[2020-04-19] MEDS: NEUTRA PHOS 1 PACKET PO SCH (21:31)
[2020-04-19] MEDS: MIRTAZAPINE 15 MG TABLET PO SCH (21:31)
[2020-04-19] MEDS: PHENAZOPYRIDINE 200 MG TABLET PO SCH (21:31)
[2020-04-19] MEDS: SENNOSIDES/DOCUSATE SODIUM 1 TAB TABLET PO SCH (21:32)
[2020-04-20] MEDS: ACETAMINOPHEN 325 MG TABLET PO PRN (01:01)
[2020-04-20] MEDS: MELATONIN 3 MG TABLET PO PRN ×2 (01:02→21:05)
[2020-04-20] MEDS: 0.9 % SODIUM CHLORIDE 10 ML SYRINGE IV SCH ×2 (04:20→13:54)
[2020-04-20 06:50] LABS: Hematocrit 32.8 % (34.1-44.9); Mean Cell Volume 82.8 fL (80.0-100.0); Mean Corpuscular HGB Conc 33.5 g/dL (31.0-36.0); Mean Platelet Volume 9.9 fL (7.4-10.4); Platelet Count 192 K/mcL (140-440); RBC 3.96 M/mcL (3.59-5.38); Red Cell Distribution Width 15.2 % (11.5-14.5); WBC 6.2 K/mcL (4.50-11.00)
[2020-04-20 07:03] LABS: ALT/SGPT 36 U/l (0-40); AST/SGOT 37 U/l (0-37); Albumin 2.7 gm/dL (3.2-5.2); Albumin/Globulin Ratio 0.9 (1.0-2.3); Alkaline Phosphatase 106 U/L (39-117); Bilirubin,Direct < 0.2 mg/dL (0.0-0.3); Bilirubin,Total < 0.2 mg/dL (0.0-1.0); Blood Urea Nitrogen 26 mg/dl (8-23); Calcium 8.6 mg/dl (8.6-10.4); Carbon Dioxide 18 mmol/L (22-30); Chloride 104 mmol/L (96-108); Glomerular Filtration Rate 39; Glucose 138 mg/dL (70-105); Lactate Dehydrogenase 178 U/L (94-250); Uric Acid 3.7 mg/dL (2.5-8.0)
[2020-04-20 07:16] LABS: Phosphorous 2.3 mg/dL (2.7-4.5); Triglycerides 370 mg/dl (<150)
[2020-04-20] MEDS: MONTELUKAST 10 MG TABLET PO SCH (08:20)
[2020-04-20] MEDS: EZETIMIBE 10 MG TABLET PO SCH (08:20)
[2020-04-20] MEDS: LACTOBACILLUS 1 CAPSULE PO SCH (08:20)
[2020-04-20] MEDS: NEUTRA PHOS 1 PACKET PO SCH ×2 (08:21→21:02)
[2020-04-20] MEDS: HEPARIN 5,000 UNIT/ML VIAL SQ SCH ×2 (08:21→21:01)
[2020-04-20] MEDS: MULTIVIT,THER IRON,CA,FA & MIN 1 TABLET PO SCH (08:21)
[2020-04-20] MEDS: DOCUSATE SODIUM 100 MG CAPSULE PO SCH ×2 (08:21→21:02)
[2020-04-20 08:33] LABS: Anisocytosis 1+ (NONE SEEN); Band Neutrophils % 3 % (0-10); Lymphocytes % 12 % (15-49); Monocytes % (Manual) 8 % (1-12); Platelet Estimate NORMAL (NORMAL); RBC Morphology ABNORM (NORMAL); Segmented Neutrophils % 77 % (38-78)
[2020-04-20] MEDS: FLUTICASONE FUROATE INH SCH (08:51)
[2020-04-20] MEDS: UMECLIDINIUM INH SCH (08:52)
[2020-04-20] MEDS: Fluticasone Furoate-Vilanterol [Breo Ellipta] Inhaler INH SCH (08:52)
[2020-04-20] MEDS ORDERED: cefTRIAXone 2 GM in DEXTROSE 5% IN WATER 50 ML IV SCH (09:00)
[2020-04-20] MEDS: PHENAZOPYRIDINE 200 MG TABLET PO SCH ×2 (09:22→21:02)
[2020-04-20] MEDS ORDERED: LEVOFLOXACIN 750 MG TABLET PO ONE (09:30)
--- NOTE | 2020-04-20 09:44 | XRay Report ---
HISTORY: Follow-up bibasilar infiltrates FINDINGS: There are mild patchy infiltrates in both lung bases. This has become worse, especially on the left side since prior exam done on 04/07/18. 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 These findings were seen on the chest CT in 2018. Heart size is upper limits of normal but magnified by portable technique. There might be a tiny left-sided pleural effusion. IMPRESSION: Worsening pneumonia/fibrosis in both lower lobes Interpreted and Authenticated by: Anthony De Dios 04/20/20
[2020-04-20] MEDS ORDERED: LEVOFLOXACIN 750 MG/150 ML BAG IV SCH ×2 (10:00)
--- NOTE | 2020-04-20 11:01 | Internal Med Progress Note ---
SUBJECTIVE Subjective Patient information: Note initiated : 04/20/20 at 10:55 am Service Date, if different from initiated Date: [] Patient: Cornelia Shi a 79 y/o F admitted on 04/18/20 for known UTI now weakness. Chief Complaint: History of present illness: Ms. Shi is a 79 year old F with a history of reactive airway disease/hypertension who presents to the ER via EMS with worsening nausea/weakness, fever chills and loss of appetite. Patient symptoms started roughly a week ago with progressive nausea and loss of appetite and symptoms of dysuria. She was seen at primary care physician's office on Thursday where she was diagnosed with UTI and was started on antibiotics. Following 2 doses of antibiotics patient continued to experience symptoms including severe malaise, left-sided flank pain, shakes and associated nausea. She was unable to function or ambulate and subsequently EMS was summoned. Initial work-up was consistent with complicated UTI/acute renal failure and seps is with a white count of 12.4, creatinine 1.9 and pyuria. Patient was started on antibiotics coverage after cultures were drawn. Subsequently hospital service was consulted. At the time of my evaluation patient is lethargic fatigued but able to answer most the question endorse history as above. She lives with her Niraj and denies exposure to sick contacts. She denies bloody urine, shortness of breath, rash but endorses to myalgia and lightheadedness/dizziness. She denies NSAID use 04/19-patient doing well. Responding to antibiotics. Renal imaging reveals left-sided hydronephrosis/renal stone with obstructive uropathy. Urology consulted and will undergo stent/lithotripsy today. Remained N.p.o. after midnight. On antibiotic coverage. White count normal down from 13.9-5. Creatinine improved to 1.4, phosphorus 1.9 start replacement. Elevated LFTs, continue monitoring. Possibly cephalosporin related. Cultures negative so far. Review postop 04/20-patient complaining of diarrhea/appears short of breath. Interval chest imaging reveals worsening patchy infiltrates both lung involving lower lobes. Likely aspiration. Maintain HOB elevated/aspiration precautions. White count 6.2. Hold discharge until clinically improved. Constitutional Vitals: Vital Signs Temp Pulse Resp BP Pulse Ox 98.1 F 77 16 144/89 90 04/20/20 07:14 04/20/20 07:14 04/20/20 07:31 04/20/20 07:14 04/20/20 07:14 Period Temp Pulse Resp BP Sys/Rodriguez Pulse Ox Last 24 Hr 97.3 F-98.5 F 70-88 12-18 105-148/55-89 90-98 Intake and Output 04/19/20 04/20/20 04/20/20 21:59 05:59 13:59 Intake Total 760 2300 Output Total 375 750 300 Balance 385 1550 -300 Weight 64.183 kg Feels fatigued Minimally labored breathing No anxiety Intake & Output: Intake & Output 04/19/20 04/20/20 04/20/20 21:59 05:59 13:59 Intake Total 760 2300 Output Total 375 750 300 Balance 385 1550 -300 Weight 64.183 kg Intake: IV 40 2000 Sodium Chloride 0.9% 1,000 ml @ 2000 100 mls/hr IV .Q10H [facility] Rx#: [id number] Lactated Ringers 1,000 ml @ 20 40 mls/hr IV .Q24H [facility] Rx#: [id number] Oral 720 300 Output: Void Amount 375 750 300 Other: Meal Dinner Percent of Meal Consumed 75% Feeding Ability Assist with Tray Set Up Urine Appearance Clear Clear Clear Urine Color Bright Yellow [place] Light Darya Urine Odor Normal Normal Normal Stool Size Small Stool Color Brown Stool Consistency Loose OBJ DATA Labs CBC & Chem 7: 04/20/20 05:50 04/20/20 05:50 Labs: Abnormal Lab Results 04/20/20 04/20/20 04/19/20 05:50 05:50 05:25 WBC Hgb 11.0 L Hct 32.8 L RDW 15.2 H Gran % Lymph % (Auto) Gran # Lymph # (Auto) Seg Neutrophils % Lymphocytes % 12 L RBC Morphology Abnorm A Anisocytosis 1+ A VBG Lactic Acid Sodium Carbon Dioxide 18 L 16 L Anion Gap BUN 26 H 25 H Creatinine 1.3 H 1.4 H POC Creatinine Glucose 138 H Calcium 8.1 L Phosphorus 2.3 L 1.9 L GGT 66 H 74 H AST 88 H ALT 47 H Alkaline Phosphatase 118 H Lactate Dehydrogenase 270 H C-Reactive Protein Total Protein 5.7 L 5.4 L Albumin 2.7 L 2.4 L Albumin/Globulin Ratio 0.9 L 0.8 L Triglycerides 370 H 321 H Urine Protein Urine Ketones Urine Occult Blood Ur Leukocyte Esterase Urine RBC Urine WBC Ur Squamous Epith Cells Urine Bacteria Urine Mucus 04/19/20 04/18/20 04/18/20 05:25 05:17 05:17 WBC Hgb 11.1 L Hct RDW 15.5 H 14.8 H Gran % 91.4 H Lymph % (Auto) 5.0 L Gran # Lymph # (Auto) 0.39 L Seg Neutrophils % 81 H Lymphocytes % 6 L RBC Morphology Abnorm A Anisocytosis 1+ A VBG Lactic Acid Sodium Carbon Dioxide 18 L Anion Gap BUN 32 H Creatinine 1.9 H POC Creatinine Glucose 113 H Calcium Phosphorus GGT AST ALT Alkaline Phosphatase Lactate Dehydrogenase C-Reactive Protein Total Protein Albumin 3.0 L Albumin/Globulin Ratio 0.9 L Triglycerides 169 H Urine Protein Urine Ketones Urine Occult Blood Ur Leukocyte Esterase Urine RBC Urine WBC Ur Squamous Epith Cells Urine Bacteria Urine Mucus 04/18/20 04/18/20 04/17/20 02:00 00:50 23:25 WBC Hgb Hct RDW Gran % Lymph % (Auto) Gran # Lymph # (Auto) Seg Neutrophils % Lymphocytes % RBC Morphology Anisocytosis VBG Lactic Acid Sodium Carbon Dioxide Anion Gap BUN Creatinine POC Creatinine 1.9 H 2.1 H Glucose Calcium Phosphorus GGT AST ALT Alkaline Phosphatase Lactate Dehydrogenase C-Reactive Protein Total Protein Albumin Albumin/Globulin Ratio Triglycerides Urine Protein 100 A Urine Ketones 5/tr A Urine Occult Blood 0.2 A Ur Leukocyte Esterase 500 A Urine RBC 32 H Urine WBC > 182 H Ur Squamous Epith Cells 9 H Urine Bacteria Many A Urine Mucus Many A 04/17/20 04/17/20 04/17/20 22:15 22:15 22:15 WBC 12.4 H Hgb Hct RDW 14.6 H Gran % 91.6 H Lymph % (Auto) 3.9 L Gran # 11.38 H Lymph # (Auto) 0.48 L Seg Neutrophils % Lymphocytes % RBC Morphology Anisocytosis VBG Lactic Acid 2.5 H Sodium 131 L Carbon Dioxide 15 L Anion Gap 20.0 H BUN 31 H Creatinine 1.8 H POC Creatinine Glucose 154 H Calcium Phosphorus GGT AST ALT Alkaline Phosphatase Lactate Dehydrogenase C-Reactive Protein 31.5 H Total Protein Albumin Albumin/Globulin Ratio Triglycerides Urine Protein Urine Ketones Urine Occult Blood Ur Leukocyte Esterase Urine RBC Urine WBC Ur Squamous Epith Cells Urine Bacteria Urine Mucus Meds: Medications Acetaminophen (Tylenol) 650 mg PO Q4-6HP PRN; Protocol PRN Reason: Per Pain Protocol/Fever > 101 Last Admin: 04/20/20 01:01 Dose: 650 mg Documented by: Hydrocodone Bitart/Acetaminophen ([place] 5/325mg) 1 tab PO Q8HP PRN; Protocol PRN Reason: pain Bisacodyl (Dulcolax) 10 mg UT Q2-3DAYS PRN PRN Reason: Constipation Docusate Sodium (Colace) 100 mg PO BID [facility] Last Admin: 04/20/20 08:21 Dose: Not Given Documented by: Ezetimibe (Zetia) 10 mg PO QDAY [facility] Last Admin: 04/20/20 08:20 Dose: 10 mg Documented by: Heparin Sodium (Porcine) (Heparin) 5,000 unit SQ Q12 [facility] Last Admin: 04/20/20 08:21 Dose: 5,000 unit Documented by: Hydralazine HCl (Apresoline) 10 mg IV Q4-6HP PRN PRN Reason: Hypertension Magnesium Sulfate (Magnesium Sulfate) 2 gm in 50 mls @ 50 mls/hr IV UD PRN PRN Reason: MG = or < 1.7 Acetaminophen (Ofirmev) 650 mg in 65 mls @ 130 mls/hr IV Q6HP PRN; Protocol PRN Reason: Per Pain Protocol/Fever > 101 Iron Carb/Multivit/[employer]/Folic Acid (Multivitamin W/Minerals) 1 tab PO DAILY [facility] Last Admin: 04/20/20 08:21 Dose: 1 tab Documented by: Lactobacillus Rhamnosus (Culturelle) 1 cap PO QDAY [facility] Last Admin: 04/20/20 08:20 Dose: 1 cap Documented by: Melatonin (Melatonin 3mg Tablet) 3 mg PO HSP PRN PRN Reason: Insomnia Last Admin: 04/20/20 01:02 Dose: 3 mg Documented by: Metoprolol Succinate (Toprol Xl) 25 mg PO [facility] Last Admin: 04/19/20 21:31 Dose: 25 mg Documented by: Metoprolol Tartrate (Lopressor) 5 mg IV Q5M PRN PRN Reason: Heart Rate > 140 bpm Mirtazapine (Remeron) 15 mg PO [facility] Last Admin: 04/19/20 21:31 Dose: 15 mg Documented by: Montelukast Sodium (Singular) 10 mg PO QDAY [facility] Last Admin: 04/20/20 08:20 Dose: 10 mg Documented by: Ondansetron HCl (Zofran Odt) 4 mg SL Q4-6HP PRN; Protocol PRN Reason: Nausea And Vomiting Ondansetron HCl (Zofran) 4 mg IV Q4HP PRN PRN Reason: Nausea And Vomiting Fluticasone Furoate (Inhaler) 1 dose INH DAILY [facility] Last Admin: 04/20/20 08:51 Dose: Not Given Documented by: Fluticasone Furoate- Vilanterol [Breo Ellipta] Inhaler 1 dose INH QDAY [facility] Last Admin: 04/20/20 08:52 Dose: Not Given Documented by: Umeclidinium [ Incruse Ellipta] Inhaler 1 dose INH QDAY [facility] Last Admin: 04/20/20 08:52 Dose: Not Given Documented by: Olopatadine Eye (Drops) 2 dose OU DAILYP PRN PRN Reason: Dry Eye(S) Phenazopyridine HCl (Pyridium) 100 mg PO BID [facility] Last Admin: 04/20/20 09:22 Dose: 100 mg Documented by: Polyethylene Glycol (Miralax) 17 gm PO DAILYP PRN PRN Reason: Constipation Potassium Chloride (Klor-Con) 40 meq PO DAILYP PRN PRN Reason: K+ < 3.5 Potassium/Phosphorus/Sodium (Neutra Phos) 2 packet PO BID [facility] Last Admin: 04/20/20 08:21 Dose: 2 packet Documented by: Senna/Docusate Sodium (Senna Plus Tablet) 1 tab PO HS [facility] Last Admin: 04/19/20 21:32 Dose: Not Given Documented by: Sodium Chloride (Saline Flush) 10 ml IV Q8 [facility] Last Admin: 04/20/20 04:20 Dose: Not Given Documented by: A/P Assessment and plan (1) Urinary incontinence: Status: Chronic (2) Left ureteral stone: Status: Acute (3) Frequent UTI: Status: Acute Narrative A/P Narrative: * Complicated UTI - Secondary to obstructive uropathy. Status post stenting. Continue antibiotic coverage. * Bibasilar pneumonia. Possible aspiration. Elevate HOB/all meals sitting up on chair. Aspiration precautions * Sepsis secondary to above with elevated white count/tachycardia. White count down from 13->6 * Diarrhea rule out C. difficile. * Obstructive uropathy-status post stent placement. Urology following. * Elevated LFTs -resolved * ARF secondary to obstructive uropathy/sepsis related. Gradually improving, creatinine down 1.9->1.5->1.3 * Hypertension on home dose metoprolol with holding parameters * History of degenerative disease continue hydrocodone acetaminophen * HLD-on home dose ezitimibe * History of COPD on bronchodilators * Prophylaxis heparin Plan * Maintain aspiration precautions * Continue antibiotic coverage * Pulmonary toilet * C. difficile testing * Pre-existing medical condition management as above * Hold discharge for 24 to 48 hours in light of new findings during diarrhea/bilateral pneumonia Time Spent With Patient Time: Total time spent is greater than 50% in coordination of care (as documented) at patient's floor/unit and/or counseling patient: QUALITY VTE Deep Vein Thrombosis/Pulmonary Embolism Present on Admission: No
[2020-04-20] MEDS: MIRTAZAPINE 15 MG TABLET PO SCH (21:02)
[2020-04-20] MEDS: SENNOSIDES/DOCUSATE SODIUM 1 TAB TABLET PO SCH (21:02)
[2020-04-20] MEDS: METOPROLOL SUCCINATE 25 MG TAB.XL.24H PO SCH (21:03)
[2020-04-21] MEDS: ACETAMINOPHEN 325 MG TABLET PO PRN
[2020-04-21 08:55] LABS: Hematocrit 33.8 % (34.1-44.9); Hemoglobin 11.5 g/dL (11.2-15.7); Mean Cell Volume 81.8 fL (80.0-100.0); Platelet Count 209 K/mcL (140-440); RBC 4.13 M/mcL (3.59-5.38); Red Cell Distribution Width 15.5 % (11.5-14.5); WBC 9.4 K/mcL (4.50-11.00)
[2020-04-21] MEDS: HEPARIN 5,000 UNIT/ML VIAL SQ SCH ×2 (09:24→21:43)
[2020-04-21] MEDS: MONTELUKAST 10 MG TABLET PO SCH (09:24)
[2020-04-21] MEDS: MULTIVIT,THER IRON,CA,FA & MIN 1 TABLET PO SCH (09:24)
[2020-04-21] MEDS: NEUTRA PHOS 1 PACKET PO SCH ×2 (09:24→21:43)
[2020-04-21] MEDS: EZETIMIBE 10 MG TABLET PO SCH (09:24)
[2020-04-21] MEDS: DOCUSATE SODIUM 100 MG CAPSULE PO SCH ×2 (09:29→21:45)
[2020-04-21] MEDS: UMECLIDINIUM INH SCH (09:29)
[2020-04-21] MEDS: FLUTICASONE FUROATE INH SCH (09:29)
[2020-04-21] MEDS: Fluticasone Furoate-Vilanterol [Breo Ellipta] Inhaler INH SCH (09:29)
[2020-04-21] MEDS: LACTOBACILLUS 1 CAPSULE PO SCH (09:29)
[2020-04-21] MEDS: PHENAZOPYRIDINE 200 MG TABLET PO SCH ×2 (09:33→21:46)
[2020-04-21 09:53] LABS: ALT/SGPT 35 U/l (0-40); AST/SGOT 38 U/l (0-37); Albumin 2.8 gm/dL (3.2-5.2); Albumin/Globulin Ratio 0.8 (1.0-2.3); Alkaline Phosphatase 105 U/L (39-117); Bilirubin,Direct < 0.2 mg/dL (0.0-0.3); Bilirubin,Total 0.4 mg/dL (0.0-1.0); Calcium 8.8 mg/dl (8.6-10.4); Carbon Dioxide 20 mmol/L (22-30); Chloride 104 mmol/L (96-108); Globulin 3.3 gm/dL (2.2-3.7); Glomerular Filtration Rate 47; Glucose 82 mg/dL (70-105); Lactate Dehydrogenase 231 U/L (94-250); Phosphorous 2.6 mg/dL (2.7-4.5); Uric Acid 3.7 mg/dL (2.5-8.0)
[2020-04-21 09:57] LABS: Blood Urea Nitrogen 17 mg/dl (8-23); Triglycerides 316 mg/dl (<150)
[2020-04-21 14:22] LABS: Band Neutrophils % 1 % (0-10); Basophils % (Manual) 1 % (0-2); Eosinophils % (Manual) 1 % (0-7); Lymphocytes % 19 % (15-49); Monocytes % (Manual) 10 % (1-12); Myelocytes % 1 % (0-0); Platelet Estimate NORMAL (NORMAL); RBC Morphology NORMAL (NORMAL); Segmented Neutrophils % 67 % (38-78)
--- NOTE | 2020-04-21 15:27 | Internal Med Progress Note ---
SUBJECTIVE Subjective Patient information: Note initiated : 04/21/20 at 3:23 pm Service Date, if different from initiated Date: [] Patient: Cornelia Shi a 79 y/o F admitted on 04/18/20 for known UTI now weakness. Chief Complaint: [] History of present illness: Ms. Shi is a 79 year old F with a history of reactive airway disease/hypertension who presents to the ER via EMS with worsening nausea/weakness, fever chills and loss of appetite. Patient symptoms started roughly a week ago with progressive nausea and loss of appetite and symptoms of dysuria. She was seen at primary care physician's office on Thursday where she was diagnosed with UTI and was started on antibiotics. Following 2 doses of antibiotics patient continued to experience symptoms including severe malaise, left-sided flank pain, shakes and associated nausea. She was unable to function or ambulate and subsequently EMS was summoned. Initial work-up was consistent with complicated UTI/acute renal failure and sep sis with a white count of 12.4, creatinine 1.9 and pyuria. Patient was started on antibiotics coverage after cultures were drawn. Subsequently hospital service was consulted. At the time of my evaluation patient is lethargic fatigued but able to answer most the question endorse history as above. She lives with her Niraj and denies exposure to sick contacts. She denies bloody urine, shortness of breath, rash but endorses to myalgia and lightheadedness/dizziness. She denies NSAID use 04/19-patient doing well. Responding to antibiotics. Renal imaging reveals left-sided hydronephrosis/renal stone with obstructive uropathy. Urology consulted and will undergo stent/lithotripsy today. Remained N.p.o. after midnight. On antibiotic coverage. White count normal down from 13.9-5. Creatinine improved to 1.4, phosphorus 1.9 start replacement. Elevated LFTs, continue monitoring. Possibly cephalosporin related. Cultures negative so far. Review postop 04/20-patient complaining of diarrhea/appears short of breath. Interval chest imaging reveals worsening patchy infiltrates both lung involving lower lobes. Likely aspiration. Maintain HOB elevated/aspiration precautions. White count 6.2. Hold discharge until clinically improved. 04/21 Patient does not have any complaints today. But she had a mild fever this morning. White blood cell was within normal limit Creatinine went back to normal Chest x-ray showed interval improvement I would like to start Augmentin today and possibly discharge this patient tomorrow on Augmentin. Patient needs to see speech pathologist as an outpatient. ROS: Positive for fever. Other systems were reviewed and negative Constitutional Vitals: Vital Signs Temp Pulse Resp BP Pulse Ox 98.4 F 73 16 147/85 88 L 04/21/20 12:00 04/21/20 12:00 04/21/20 12:00 04/21/20 12:00 04/21/20 12:00 Period Temp Pulse Resp BP Sys/Rodriguez Pulse Ox Last 24 Hr 98.1 F-100.0 F 73-80 16-20 147-161/76-87 88-91 Intake and Output 04/21/20 04/21/20 04/21/20 05:59 13:59 21:59 Intake Total 100 Balance 100 Intake & Output: Intake & Output 04/21/20 04/21/20 04/21/20 05:59 13:59 21:59 Intake Total 100 Balance 100 Intake: Oral 100 Other: Urine Appearance Clear Urine Color [place] Urine Odor Normal Stool Size Moderate Stool Color Brown Stool Consistency Liquid Watery Loose # Voids 2 Additional findings Additional findings: General -no acute distress Eyes - PERRLA, EOM intact ENT no rhinorrhea, no noticeable or palpable swelling, no redness or rash around throat or on face Neck supple, no JVD, no thyromegaly Respiratory: Lungs -mildly diminshed BS, no wheezing and crackles. Cardiovascular - RRR no m/r/g, GI - Normal bowel sounds, no distended, soft. Extremeties - No edema, cyanosis or clubbing Hemo/lymphatic/immune no lymphadenopathy Neurological Alert and oriented x 3, no focal neurologic deficits. Psychiatry flat affect OBJ DATA Labs CBC & Chem 7: 04/21/20 06:00 04/21/20 06:00 Labs: Abnormal Lab Results 04/21/20 04/21/20 04/20/20 06:00 06:00 05:50 Hgb Hct 33.8 L RDW 15.5 H Seg Neutrophils % Lymphocytes % Myelocytes % 1 H RBC Morphology Anisocytosis Potassium 3.2 L Carbon Dioxide 20 L 18 L BUN 26 H Creatinine 1.3 H Glucose 138 H Calcium Phosphorus 2.6 L 2.3 L GGT 63 H 66 H AST 38 H ALT Alkaline Phosphatase Lactate Dehydrogenase Total Protein 5.7 L Albumin 2.8 L 2.7 L Albumin/Globulin Ratio 0.8 L 0.9 L Triglycerides 316 H 370 H 04/20/20 04/19/20 04/19/20 05:50 05:25 05:25 Hgb 11.0 L 11.1 L Hct 32.8 L RDW 15.2 H 15.5 H Seg Neutrophils % 81 H Lymphocytes % 12 L 6 L Myelocytes % RBC Morphology Abnorm A Abnorm A Anisocytosis 1+ A 1+ A Potassium Carbon Dioxide 16 L BUN 25 H Creatinine 1.4 H Glucose Calcium 8.1 L Phosphorus 1.9 L GGT 74 H AST 88 H ALT 47 H Alkaline Phosphatase 118 H Lactate Dehydrogenase 270 H Total Protein 5.4 L Albumin 2.4 L Albumin/Globulin Ratio 0.8 L Triglycerides 321 H Meds: Medications Acetaminophen (Tylenol) 650 mg PO Q4-6HP PRN; Protocol PRN Reason: Per Pain Protocol/Fever > 101 Last Admin: 04/21/20 00:00 Dose: 650 mg Documented by: Hydrocodone Bitart/Acetaminophen ([place] 5/325mg) 1 tab PO Q8HP PRN; Protocol PRN Reason: pain Bisacodyl (Dulcolax) 10 mg RI Q2-3DAYS PRN PRN Reason: Constipation Docusate Sodium (Colace) 100 mg PO BID [facility] Last Admin: 04/21/20 09:29 Dose: Not Given Documented by: Ezetimibe (Zetia) 10 mg PO QDAY [facility] Last Admin: 04/21/20 09:24 Dose: 10 mg Documented by: Heparin Sodium (Porcine) (Heparin) 5,000 unit SQ Q12 [facility] Last Admin: 04/21/20 09:24 Dose: 5,000 unit Documented by: Hydralazine HCl (Apresoline) 10 mg IV Q4-6HP PRN PRN Reason: Hypertension Magnesium Sulfate (Magnesium Sulfate) 2 gm in 50 mls @ 50 mls/hr IV UD PRN PRN Reason: MG = or < 1.7 Acetaminophen (Ofirmev) 650 mg in 65 mls @ 130 mls/hr IV Q6HP PRN; Protocol PRN Reason: Per Pain Protocol/Fever > 101 Potassium Phosphate 20 meq/ (Dextrose) 254.5455 mls @ 127.273 mls/hr IV ONCE ONE Stop: 04/21/20 17:18 Iron Carb/Multivit/[place]/Folic Acid (Multivitamin W/Minerals) 1 tab PO DAILY [facility] Last Admin: 04/21/20 09:24 Dose: 1 tab Documented by: Lactobacillus Rhamnosus (Culturelle) 1 cap PO QDAY [facility] Last Admin: 04/21/20 09:29 Dose: Not Given Documented by: Melatonin (Melatonin 3mg Tablet) 3 mg PO HSP PRN PRN Reason: Insomnia Last Admin: 04/20/20 21:05 Dose: 3 mg Documented by: Metoprolol Succinate (Toprol Xl) 25 mg PO [facility] Last Admin: 04/20/20 21:03 Dose: 25 mg Documented by: Metoprolol Tartrate (Lopressor) 5 mg IV Q5M PRN PRN Reason: Heart Rate > 140 bpm Mirtazapine (Remeron) 15 mg PO [facility] Last Admin: 04/20/20 21:02 Dose: 15 mg Documented by: Montelukast Sodium (Singular) 10 mg PO QDAY [facility] Last Admin: 04/21/20 09:24 Dose: 10 mg Documented by: Ondansetron HCl (Zofran Odt) 4 mg SL Q4-6HP PRN; Protocol PRN Reason: Nausea And Vomiting Last Admin: 04/21/20 03:27 Dose: 4 mg Documented by: Ondansetron HCl (Zofran) 4 mg IV Q4HP PRN PRN Reason: Nausea And Vomiting Fluticasone Furoate (Inhaler) 1 dose INH DAILY [facility] Last Admin: 04/21/20 09:29 Dose: Not Given Documented by: Fluticasone Furoate- Vilanterol [Breo Ellipta] Inhaler 1 dose INH QDAY [facility] Last Admin: 04/21/20 09:29 Dose: Not Given Documented by: Umeclidinium [ Incruse Ellipta] Inhaler 1 dose INH QDAY [facility] Last Admin: 04/21/20 09:29 Dose: Not Given Documented by: Olopatadine Eye (Drops) 2 dose OU DAILYP PRN PRN Reason: Dry Eye(S) Phenazopyridine HCl (Pyridium) 100 mg PO BID [facility] Last Admin: 04/21/20 09:33 Dose: 100 mg Documented by: Polyethylene Glycol (Miralax) 17 gm PO DAILYP PRN PRN Reason: Constipation Potassium Chloride (Klor-Con) 40 meq PO DAILYP PRN PRN Reason: K+ < 3.5 Potassium Chloride (Kdur) 20 meq PO Q2 [facility] Stop: 04/21/20 18:01 Potassium/Phosphorus/Sodium (Neutra Phos) 2 packet PO BID [facility] Last Admin: 04/21/20 09:24 Dose: 2 packet Documented by: Senna/Docusate Sodium (Senna Plus Tablet) 1 tab PO HS [facility] Last Admin: 04/20/20 21:02 Dose: Not Given Documented by: A/P Narrative A/P Narrative: 1. Complicated UTI - Secondary to obstructive uropathy. Status post stenting. Continue antibiotic coverage. 2. Bibasilar pneumonia. Possible aspiration. Elevate HOB/all meals sitting up on chair. Aspiration precautions. ST not available until Thursday CXR - interval improvement No significant clincal evidence of PNA. Mild fever in am. WBC WNL Would like to start her on Augmentin Pulmonary toilet 3. Diarrhea, resolved. C. difficile negqative. 4. Obstructive uropathy-status post stent placement. Urology following. 5. Elevated LFTs -resolved 6. ARF secondary to obstructive uropathy/sepsis related. Creatinine went to NL today. 6. Hypertension on home dose metoprolol with holding parameters 7. History of degenerative disease continue hydrocodone acetaminophen 8. HLD-on home dose ezitimibe 9. History of COPD on bronchodilators 10. Electrolytes derangement: Phos and k low given Repeat in am 11. Prophylaxis heparin Deposition: Possibly discharge for tomorrow. Time Spent With Patient Time: Total time spent is greater than 50% in coordination of care (as document ed) at patient's floor/unit and/or counseling patient: QUALITY VTE Deep Vein Thrombosis/Pulmonary Embolism Present on Admission: No
[2020-04-21] MEDS ORDERED: POTASSIUM PHOSPHATE 20 MEQ in DEXTROSE 5% IN WATER 250 ML IV ONE (16:00)
[2020-04-21] MEDS: POTASSIUM CHLORIDE 20 MEQ TABLET PO SCH ×2 (16:24→18:33)
--- NOTE | 2020-04-21 17:28 | XRay Report ---
HISTORY: Follow-up pneumonia FINDINGS: The pulmonary vessels are prominent. There are very small bilateral pleural effusions. There is small to intermediate size alveolar infiltrate above the right diaphragm. Medially in the left lower lobe there is a thick band of atelectasis. The heart is mildly enlarged but magnified by portable technique. Comparison with prior exam from 04/20/20 shows the pulmonary vessels are more prominent today. The infiltrates in the lung bases have remained stable. The pleural effusions have increased in volume a small amount. IMPRESSION: Congestive heart failure superimposed upon pneumonia and scar in the right lower lobe and discoid atelectasis in the left lower lobe Interpreted and Authenticated by: Anthony De Dios 04/21/20
[2020-04-21] MEDS: MIRTAZAPINE 15 MG TABLET PO SCH (21:44)
[2020-04-21] MEDS: CIPROFLOXACIN 500 MG TABLET PO SCH (21:44)
[2020-04-21] MEDS: METOPROLOL SUCCINATE 25 MG TAB.XL.24H PO SCH (21:44)
[2020-04-21] MEDS: metroNIDAZOLE 500 MG TABLET PO SCH (21:44)
[2020-04-21] MEDS: SENNOSIDES/DOCUSATE SODIUM 1 TAB TABLET PO SCH (21:46)
[2020-04-22] MEDS: metroNIDAZOLE 500 MG TABLET PO SCH (05:02)
[2020-04-22 07:08] LABS: Hematocrit 34.7 % (34.1-44.9); Hemoglobin 11.7 g/dL (11.2-15.7); Mean Cell Volume 81.8 fL (80.0-100.0); Mean Corpuscular HGB Conc 33.7 g/dL (31.0-36.0); Mean Platelet Volume 10.1 fL (7.4-10.4); Platelet Count 218 K/mcL (140-440); RBC 4.24 M/mcL (3.59-5.38); Red Cell Distribution Width 15.2 % (11.5-14.5); WBC 8.4 K/mcL (4.50-11.00)
[2020-04-22] MEDS: EZETIMIBE 10 MG TABLET PO SCH (08:17)
[2020-04-22] MEDS: MULTIVIT,THER IRON,CA,FA & MIN 1 TABLET PO SCH (08:18)
[2020-04-22] MEDS: PHENAZOPYRIDINE 200 MG TABLET PO SCH (08:18)
[2020-04-22] MEDS: CIPROFLOXACIN 500 MG TABLET PO SCH (08:18)
[2020-04-22] MEDS: MONTELUKAST 10 MG TABLET PO SCH (08:18)
[2020-04-22] MEDS: NEUTRA PHOS 1 PACKET PO SCH (08:19)
[2020-04-22] MEDS: DOCUSATE SODIUM 100 MG CAPSULE PO SCH (08:19)
[2020-04-22] MEDS: HEPARIN 5,000 UNIT/ML VIAL SQ SCH (08:19)
[2020-04-22] MEDS: LACTOBACILLUS 1 CAPSULE PO SCH (08:19)
[2020-04-22] MEDS: FLUTICASONE FUROATE INH SCH (08:20)
[2020-04-22] MEDS: UMECLIDINIUM INH SCH (08:20)
[2020-04-22] MEDS: Fluticasone Furoate-Vilanterol [Breo Ellipta] Inhaler INH SCH (08:20)
[2020-04-22 08:28] LABS: ALT/SGPT 52 U/l (0-40); AST/SGOT 61 U/l (0-37); Albumin 2.9 gm/dL (3.2-5.2); Albumin/Globulin Ratio 0.9 (1.0-2.3); Alkaline Phosphatase 99 U/L (39-117); Bilirubin,Direct < 0.2 mg/dL (0.0-0.3); Bilirubin,Total 0.4 mg/dL (0.0-1.0); Blood Urea Nitrogen 14 mg/dl (8-23); Calcium 8.7 mg/dl (8.6-10.4); Chloride 102 mmol/L (96-108); Globulin 3.1 gm/dL (2.2-3.7); Glomerular Filtration Rate 47; Glucose 122 mg/dL (70-105); Lactate Dehydrogenase 295 U/L (94-250); Triglycerides 284 mg/dl (<150); Uric Acid 3.6 mg/dL (2.5-8.0)
[2020-04-22 08:42] LABS: Carbon Dioxide 25 mmol/L (22-30); Phosphorous 3.2 mg/dL (2.7-4.5)
[2020-04-22 09:33] LABS: Band Neutrophils % 1 % (0-10); Basophils % (Manual) 1 % (0-2); Eosinophils % (Manual) 4 % (0-7); Lymphocytes % 18 % (15-49); Monocytes % (Manual) 9 % (1-12); Myelocytes % 1 % (0-0); Platelet Estimate NORMAL (NORMAL); RBC Morphology NORMAL (NORMAL); Reactive Lymphocytes 1 % (0-2); Segmented Neutrophils % 65 % (38-78)
--- NOTE | 2020-04-22 10:44 | Discharge Summary ---
Discharge Provider Provider Patient information: Note initiated : 04/22/20 at 10:30 am Service Date, if different from initiated Date: [] Patient: Cornelia Shi 79 y/o F admitted on 04/18/20 for known UTI now weakness. Chief Complaint: [] Date of admission: 04/18/20 09:33 Discharge date: 04/22/20 Primary care physician: Aditi Atwood Consults: 04/18/20 Consult to Physician [CONS] Stat Comment: Consulting Provider: Keenan Scott Reason For Exam: Physician to Consult 04/18/20 11:19 Consult to Physician [CONS] Routine Comment: Consulting Provider: Juan F Clifton Reason For Exam: Physician to Consult Discharge Meds Discharge Medications Home Medications acyclovir 400 mg tablet 400 mg PO QDAY 90 Days #90 tab 03/06/15 [Rx Confirmed 04/18/20 Last Taken 04/08/18] L.acidophilus-Bif. animalis 1 tab PO QDAY 06/11/15 [History Confirmed 04/18/20 Last Taken 04/08/18] fluticasone furoate 200 mcg-vilanterol 25 mcg/dose inhalation powder 1 each INHALATION QDAY each 06/11/15 [History Confirmed 04/18/20 Last Taken 04/09/18 05:00] multivitamin with minerals 1 tab-cap PO QDAY tab 06/11/15 [History Confirmed 04/18/20 Last Taken 04/08/18] olopatadine 0.1 % eye drops 2 drp OPHTHALMIC ONCE PRN ml 06/11/15 [History Confirmed 04/18/20 Last Taken 04/09/18] calcium carbonate 600 mg (1,500 mg)-vitamin D3 200 unit tablet 1 tab PO QDAY tab 09/23/19 [History Confirmed 04/18/20 Last Taken Unknown] montelukast 10 mg tablet 10 mg PO QDAY tab 09/23/19 [History Confirmed 04/18/20 Last Taken Unknown] ezetimibe 10 mg tablet 10 mg PO QDAY #90 tab 02/06/20 [Rx Confirmed 04/18/20 Last Taken Unknown] mirtazapine 15 mg tablet See Rx Instructions .ROUTE .COMPLEX #90 tab 02/23/20 [Rx Confirmed 04/18/20 Last Taken Unknown] umeclidinium 62.5 mcg/actuation blister powder for inhalation 1 inh INHALATION QDAY 02/23/20 [History Confirmed 04/18/20 Last Taken Unknown] hydrocodone 5 mg-acetaminophen 325 mg tablet 1 tab PO Q8H PRN #30 tab 04/16/20 [Rx Confirmed 04/18/20 Last Taken Unknown] metoprolol succinate 25 mg tablet,extended release 24 hr 25 mg PO HS #30 tab 04/16/20 [Rx Confirmed 04/18/20 Last Taken Unknown] ciprofloxacin HCl 500 mg PO BID #6 tab 04/22/20 [Rx Last Taken Unknown] COURSE Hospital Course Hospital course: 1. Complicated UTI - Secondary to obstructive uropathy. Status post stenting. Continue cipro. 2. Bibasilar pneumonia? Possible aspiration. Elevate HOB/all meals sitting up on chair. Aspiration precautions. ST not available until Thursday. Pt needs to see ST as an outpatient CXR - interval improvement No significant clincal evidence of PNA. No fever today. WBC WNL Procalcitonin elevated. Pulmonary toilet I would not like to start abx. repeat CBC in 3 days. f/u with pcp in 3 days. 3. Diarrhea, resolved. C. difficile negqative. 4. Obstructive uropathy-status post stent placement. Urology following. 5. Elevated LFTs -resolved 6. ARF secondary to obstructive uropathy/sepsis related. Creatinine went to NL. 6. Hypertension on home dose metoprolol. 7. History of degenerative disease continue hydrocodone acetaminophen 8. HLD-on home dose ezitimibe 9. History of COPD on bronchodilators 10. Electrolytes derangement: Phos and k low given Repeat in am - corrected. Interval history: History of present illness: Ms. Shi is a 79 year old F with a history of reactive airway disease/hypertension who presents to the ER via EMS with worsening nausea/weakness, fever chills and loss of appetite. Patient symptoms started roughly a week ago with progressive nausea and loss of appetite and symptoms of dysuria. She was seen at primary care physician's office on Thursday where she was diagnosed with UTI and was started on antibiotics. Following 2 doses of antibiotics patient continued to experience symptoms including severe malaise, left-sided flank pain, shakes and associated nausea. She was unable to function or ambulate and subsequently EMS was summoned. Initial work-up was consistent with complicated UTI/acute renal failure and sepsis with a white count of 12.4, creatinine 1.9 and pyuria. Patient was started on antibiotics coverage after cultures were drawn. Subsequently hospital service was consulted. At the time of my evaluation patient is lethargic fatigued but able to answer most the question endorse history as above. She lives with her Niraj and denies exposure to sick contacts. She denies bloody urine, shortness of breath, rash but endorses to myalgia and lightheadedness/dizziness. She denies NSAID use 04/19-patient doing well. Responding to antibiotics. Renal imaging reveals left-sided hydronephrosis/renal stone with obstructive uropathy. Urology consulted and will undergo stent/lithotripsy today. Remained N.p.o. after midnight. On antibiotic coverage. White count normal down from 13.9-5. Creatinine improved to 1.4, phosphorus 1.9 start replacement. Elevated LFTs, continue monitoring. Possibly cephalosporin related. Cultures negative so far. Review postop 04/20-patient complaining of diarrhea/appears short of breath. Interval chest imaging reveals worsening patchy infiltrates both lung involving lower lobes. Likely aspiration. Maintain HOB elevated/aspiration precautions. White count 6.2. Hold discharge until clinically improved. 04/21 Patient does not have any complaints today. But she had a mild fever this morning. White blood cell was within normal limit Creatinine went back to normal Chest x-ray showed interval improvement I would like to start Augmentin today and possibly discharge this patient tomorrow on Augmentin. Patient needs to see speech pathologist as an outpatient. 04/22 Patient does not have any complaints today. Smita signs are stable. No evidence of infection. She is allergic to penicillin so Augmentin did not given yesterday. Repeat a CBC and CMP in 3 days. Patient will be discharged home to follow with PCP and urology. The she also needs to see speech pathologist. Call PCP for medical issues. Discharge diagnosis: Obstructive uropathy, UTI Time Spent with Patient Time attestation: Total time spent providing and/or coordinating discharge services: EXAM Constitutional Vitals: Temp Pulse Resp BP Pulse Ox 98.3 F 83 18 141/81 94 04/22/20 07:54 04/22/20 07:54 04/22/20 09:00 04/22/20 07:54 04/22/20 07:54 Additional findings Additional findings: General -no acute distress Eyes - PERRLA, EOM intact ENT no rhinorrhea, no noticeable or palpable swelling, no redness or rash around throat or on face Neck supple, no JVD, no thyromegaly Respiratory: Lungs -mildly diminshed BS, no wheezing and crackles. Cardiovascular - RRR no m/r/g, GI - Normal bowel sounds, no distended, soft. Extremeties - No edema, cyanosis or clubbing Hemo/lymphatic/immune no lymphadenopathy Neurological Alert and oriented x 3, no focal neurologic deficits. Psychiatry flat affect Discharge Data Data Completed and Pending Labs on day of discharge: Labs from last 24 hours 04/22/20 04/22/20 04/21/20 06:08 06:08 06:00 WBC 8.4 RBC 4.24 Hgb 11.7 Hct 34.7 MCV 81.8 MCH 27.6 MCHC 33.7 RDW 15.2 H Plt Count 218 MPV 10.1 Total Counted 100 Seg Neutrophils % 65 Band Neutrophils % 1 Lymphocytes % 18 Monocytes % (Manual) 9 Eosinophils % (Manual) 4 Basophils % (Manual) 1 Myelocytes % 1 H Reactive Lymphocytes 1 Platelet Estimate Normal RBC Morphology Normal Sodium 138 Potassium 3.9 Chloride 102 Carbon Dioxide 25 Anion Gap 11.0 BUN 14 Creatinine 1.1 GFR Calculation 47 Glucose 122 H Uric Acid 3.6 Calcium 8.7 Phosphorus 3.2 Magnesium 1.6 Total Bilirubin 0.4 Direct Bilirubin < 0.2 GGT 63 H AST 61 H ALT 52 H Alkaline Phosphatase 99 Lactate Dehydrogenase 295 H Total Protein 6.0 Albumin 2.9 L Globulin 3.1 Albumin/Globulin Ratio 0.9 L Triglycerides 284 H Procalcitonin 3.17 04/21/20 06:00 WBC RBC Hgb Hct MCV MCH MCHC RDW Plt Count MPV Total Counted 100 Seg Neutrophils % 67 Band Neutrophils % 1 Lymphocytes % 19 Monocytes % (Manual) 10 Eosinophils % (Manual) 1 Basophils % (Manual) 1 Myelocytes % 1 H Reactive Lymphocytes Platelet Estimate Normal RBC Morphology Normal Sodium Potassium Chloride Carbon Dioxide Anion Gap BUN Creatinine GFR Calculation Glucose Uric Acid Calcium Phosphorus Magnesium Total Bilirubin Direct Bilirubin GGT AST ALT Alkaline Phosphatase Lactate Dehydrogenase Total Protein Albumin Globulin Albumin/Globulin Ratio Triglycerides Procalcitonin Preliminary micro results at discharge 04/18/20 08:01 Blood Culture - Preliminary Blood 04/18/20 08:20 Blood Culture - Preliminary Blood Discharge Plan Patient/Caregiver Discharge Instructions Activity: increase activity as tolerated Activity Restrictions/Additional Instructions: f/u with PCP in 3 days and urology in 3 days. Speech pathology within one week or sooner. Prescriptions: New ciprofloxacin HCl 500 mg Tablet 500 mg PO BID Qty: 6 RF: 0 Continued Incruse Ellipta 62.5 mcg/actuation blister with device 1 inh INHALATION QDAY RF: 0 metoprolol succinate 25 mg tablet extended release 24 hr 25 mg PO HS Qty: 30 RF: 2 hydrocodone-acetaminophen 5-325 mg tablet 1 tab PO Q8H PRN (Reason: pain) Qty: 30 RF: 0 acyclovir 400 mg tablet 400 mg PO QDAY 90 Days Qty: 90 RF: 0 ezetimibe [Zetia] 10 mg tablet 10 mg PO QDAY Qty: 90 RF: 0 mirtazapine 15 mg tablet See Rx Instructions .ROUTE .COMPLEX Qty: 90 RF: 1 olopatadine 0.1 % drops 2 drp OPHTHALMIC ONCE PRN (Reason: Dry Eye(S)) RF: 0 fluticasone furoate-vilanterol 200-25 mcg/dose blister with device 1 each INHALATION QDAY RF: 0 Probiotic 1 tab PO QDAY RF: 0 multivitamin with minerals tablet 1 tab-cap PO QDAY RF: 0 montelukast 10 mg tablet 10 mg PO QDAY RF: 0 calcium carbonate 600 mg (1,500 mg)-vitamin D3 200 unit tablet 600 mg(1,500mg) -200 unit tablet 1 tab PO QDAY RF: 0 Discontinued sulfamethoxazole-trimethoprim [Bactrim DS] 800-160 mg tablet 1 tab PO Q12H Qty: 20 RF: 0 sulfamethoxazole-trimethoprim [Bactrim DS] 800-160 mg tablet 1 tab PO BID Qty: 60 RF: 2 fluticasone furoate 100 MCG blister with device 1 puff IH DAILY RF: 0 Other Ambulatory Orders: Complete Blood Count (Routine) Timeframe: 3 Days Facility: [facility] - Location: Laboratory Ordered By: Evelin Galindo Comprehensive Metabolic Panel (Routine) Timeframe: 3 Days Facility: [facility] - Location: Laboratory Ordered By: Evelin Galindo Follow Up Plan Follow up with: Aditi Atwood ARNP [Primary Care Provider] - Unknown [Outside] (PCP in 3 days and urology in 3 days. Speech pathology within one week or sooner. ) Patient Disposition: Home, Self-Care Prognosis: Undetermined Discharge Orders: Discharge Order (Routine); Ordered 04/22/20 Ordered By: Evelin METZ VTE Deep Vein Thrombosis/Pulmonary Embolism Present on Admission: No
== END 2020-04-22 12:20 | disposition home or self-care (01) | DRG 853 ==
LOC: ED 21:39 → MEDSUR 21:39
PROVIDERS: ADMIT Internal Medicine; ATTEND Internal Medicine